=== PATIENT | female | born 1980 | race Caucasian/White ===

== ENCOUNTER 2018-03-12 21:48 | Inpatient (IN) | payer SELFPAY, MEDICAID | END 2018-03-16 15:52 | disposition home or self-care (01) | LOC: 4TH 03-13 00:36 → ER 21:48 ==

== ENCOUNTER 2018-04-22 20:43 | Outpatient (CLI) | payer OTHER | END 2018-04-23 06:35 | disposition home or self-care (01) | LOC: SLEEP 20:43 | PROVIDERS: ATTEND Nurse Practitioner Family | DX: G47.10 Hypersomnia, unspecified (principal); I50.9 Heart failure, unspecified; R94.30 Abnormal result of cardiovascular function study, unspecified; Z72.0 Tobacco use | CPT/HCPCS: 95810 ==

== ENCOUNTER → 2018-06-25 | Outpatient (CLI) | payer MEDICAID, OTHER ==
[~2018-06-25] MED LIST: ALBU17AE3 IH; ALBU8.5H2; ASP325T PO; CARV12.53 PO; CEFD300C3 PO; DIGO125T PO; DIGOXIN; ENAL5TAB PO; FLUO20CA25 PO; FRS325T PO; FRSM40T PO; FURO20TA4 PO; LASIX; LEVO500T69 PO; LEVO500T80 PO; MAGN400T6 PO; MAGNESIUM; METH4TAB PO; METO-387 PO; MULT-298 PO; NFPRILOC40 PO; NIAC250T17 PO; OMEP20TA2 PO; POTA10CA43 PO; POTASSIUM; PRAV10TA PO; PRD20T PO; PROZAC; RT-FLOV110 INH; SACU1TAB PO; SPIR25TA3 PO
== END ==
LOC: CARD 09:00
PROVIDERS: ATTEND Internal Medicine Cardiovascular Disease
DX: I42.8 Other cardiomyopathies (principal); I08.1 Rheumatic disorders of both mitral and tricuspid valves
CPT/HCPCS: 93306

== ENCOUNTER 2019-04-20 13:09 | Emergency (ER) | payer SELFPAY ==
[~2019-04-20] VITALS: Ht 165 cm; Wt 133.8 kg
[~2019-04-20 13:09] MED LIST changes: -METO-387 PO; +MTP25TSR PO; -SACU1TAB PO; +SACU1TAB2 PO
--- NOTE | 2019-04-20 13:46 | ED EENT ---
History of Present Illness General Chief Complaint: Dental Problems/Pain Stated Complaint: DENTAL PAIN Nursing Triage Note: Patient ambulatory to ER FT3 with complaint of dental pain x 3 days. Patient states she broke an upper left tooth 3 days ago and now has swelling and pain to the left upper jaw. Patient has been taking orajel and ibuprofen with minimal relief. Source: patient Exam Limitations: no limitations History of Present Illness Date Seen by Provider: Apr 20, 2019 Time Seen by Provider: 13:46 Initial Comments 38-year-old female patient presents with complaints of left upper dental pain 3 days. Patient reports chipping the tooth 3 days ago. She denies improvement with Orajel and ibuprofen at home. Timing/Duration: gradual Location: facial, dental Prearrival Treatment: over the counter meds Modifying Factors: Improves With Other (worse with palpation and chewing.) Allergies and Home Medications Allergies Coded Allergies: paroxetine (Unverified Allergy, Unknown, 07/07/13) Uncoded Allergies: ANESTHETIC (Allergy, Unknown, 07/07/13) Home Medications Cefdinir 300 Mg Capsule, 300 MG PO BID Prescribed by: WHIT CEDENO on 03/14/18 1654 Metoprolol Succinate 25 Mg Tab.er.24h, 25 MG PO DAILY Prescribed by: WHIT CEDENO on 03/14/18 165 Penicillin V Potassium 500 Mg Tablet, 500 MG PO QID Prescribed by: NIVIA MICHELLE on 04/20/19 1412 Sacubitril/Valsartan 1 Each Tablet, 1 TAB PO BID Prescribed by: WHIT CEDENO on 03/14/18 165 Tramadol HCl 50 Mg Tablet, 50 MG PO Q6H PRN for PAIN Prescribed by: NIVIA MICHELLE on 04/20/19 1412 Patient Home Medication List Home Medication List Reviewed: Yes Review of Systems Review of Systems Constitutional: No chills, No diaphoresis, No fever, No malaise Eyes: No Symptoms Reported Ears: No Symptoms Reported Nose: no symptoms reported Mouth: see HPI, pain, swelling (left upper); denies bloody discharge, denies clear discharge, denies purulent discharge, denies serosanguinous discharge Throat: denies pain, denies swelling, denies neck stiffness, denies hoarse, denies aphonia, denies muffled, denies painful swallowing, denies difficulty with fluids Respiratory: no symptoms reported Cardiovascular: no symptoms reported Gastrointestinal: no symptoms reported Skin: no symptoms reported Neurological: No Symptoms Reported All Other Systems Reviewed Negative Unless Noted: Yes (Negative excepted noted.) Past Puoyypj-Fvtvfo-Tgscvx Hx Past Med/Social Hx: Reviewed Nursing Past Med/Soc Hx Patient Social History Type Used: Cigarettes 2nd Hand Smoke Exposure: Yes Recent Foreign Travel: No Contact w/Someone Who Travel: No Recent Infectious Disease Expo: No Recent Hopitalizations: No Immunizations Up To Date Date of Pneumonia Vaccine: Dec 03, 2010 Date of Influenza Vaccine: Mar 13, 2018 Seasonal Allergies Seasonal Allergies: No Past Medical History Surgeries: Yes Adenoidectomy, Tonsillectomy, Tubal Ligation Respiratory: Yes (VERY DIFFICULT TO INTUBATE) Asthma Cardiac: Yes Neurological: No 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 6.0oz. 113.645864fo; 49.00 BMI Method:Estimated General Appearance: WD/WN, no apparent distress, obese Eyes: bilateral eye normal inspection, bilateral eye PERRL, bilateral eye EOMI Ears: bilateral ear auricle normal, bilateral ear canal normal, bilateral ear TM normal Nose: normal inspection Mouth/Throat: pharynx normal, dental tenderness (left upper dental tenderness); No excessive drooling; maxillary swelling (left); No pharynx swelling, No trismus, No uvula swelling, No voice changes Neck: non-tender, full range of motion, supple, normal inspection Cardiovascular: normal peripheral pulses, regular rate, rhythm, no edema, no murmur Respiratory: lungs clear, normal breath sounds, no respiratory distress, no accessory muscle use Neurologic/Psychiatric: alert, normal mood/affect, oriented x 3 Skin: normal color, warm/dry Progress/Results/Core Measures Results/Orders My Orders Orders - NIVIA MICHELLE Lidocaine 2% Viscous 15 Ml (Xylocaine Vi (04/20/19 14:15) Benzocaine Extension Tube (Hurricaine Ex (04/20/19 14:15) Vital Signs/I&O 04/20/19 13:26 Temp 37.1 Pulse 76 Resp 18 B/P (MAP) 136/87 (103) Pulse Ox 100 O2 Delivery Room Air Blood Pressure Mean: 103 Departure Impression Primary Impression: Infected dental caries Disposition: HOME, SELF-CARE Condition: Improved Departure-Patient Inst. Decision time for Depature: 14:10 Referrals: [facility] (PCP/Family) Primary Care Physician Patient Instructions: Dental Pain, Tooth Abscess (DC) Add. Discharge Instructions: All discharge instructions reviewed with patient and/or family. Voiced understanding. Medications as instructed. Tylenol Extra Strength opfu-ldx-dtyzflr as directed for pain. Ibuprofen 800 mg by mouth every 8 hours as needed for pain. Soft diet as tolerated. Stay well hydrated. Ice packs or warm packs as needed for pain. Follow-up with the dentist of your choice for recheck and dental repair as an outpatient. Call their office Sunday for appointment time. Return to the emergency department for worsened pain, fever, difficulty swallowing, difficulty breathing, or any other concerns. Lidocaine with benzocaine gauze pads- Place 1 pad between the gums and cheek of the affected tooth for 5-10 minutes. Then remove the pad. You may repeat this 4 times a day as needed for pain. DO NOT lie down with the pad in her mouth, swallow the pad, or fall asleep with the pad in your mouth due to risk of choking, bowel obstruction, and . Scripts Tramadol HCl (Tramadol HCl) 50 Mg Tablet 50 MG PO Q6H PRN for PAIN, #14 TAB 0 Refills Prov: NIVIA MICHELLE 04/20/19 Penicillin V Potassium (Penicillin V Potassium) 500 Mg Tablet 500 MG PO QID, #42 TAB 0 Refills Prov: NIVIA MICHELLE 04/20/19 NIVIA MICHELLE Apr 20, 2019 13:46
[2019-04-20] MEDS ORDERED: PENI500T PO (14:12)
[2019-04-20] MEDS ORDERED: TRM50T PO (14:12)
[2019-04-20] MEDS ORDERED: LIDOCAINE 2% VISCOUS 15 ML UDC PO ONE (14:15)
[2019-04-20] MEDS ORDERED: HURRICAINE EXT TUBE (BENZOCAINE) XX ONE (14:15)
[2019-04-20 14:37] VITALS: BP 136/87
== END 2019-04-20 14:38 | disposition home or self-care (01) ==
LOC: ER 13:09 → EDUNIT# 13:09 → ER 14:38
DX: K02.9 Dental caries, unspecified (principal); K04.7 Periapical abscess without sinus; Z88.8 Allergy status to other drugs, medicaments and biological substances; Z88.4 Allergy status to anesthetic agent
CPT/HCPCS: 99282

== ENCOUNTER 2019-10-21 20:43 | Emergency (ER) | payer SELFPAY ==
[~2019-10-21] VITALS: Ht 165.1 cm; Wt 124.7 kg
[~2019-10-21 20:43] MED LIST changes: +PENI500T PO; +TRM50T PO
--- NOTE | 2019-10-21 21:21 | ED EENT ---
History of Present Illness General Chief Complaint: Dental Problems/Pain Stated Complaint: DENTAL PAIN Nursing Triage Note: PT AMBULATE TO TRIAGE WITH C/O TOOTH PAIN X2 DAYS. PT STATES SHE HAS A TOOTH THAT WAS CHIPPED AND NOT SHE THINKS IT IS INFECTED. PT STATES SHE HAS NOT SEEN A DENTIST FOR THIS C/O AND WAS GOING TO CALL TOMORROW FOR A APPOINTMENT. History of Present Illness Date Seen by Provider: Oct 21, 2019 Time Seen by Provider: 21:15 Initial Comments 39-year-old female presents for left lower molar pain that is been present for approximately 2 days ago. She reports that it was to be pulled several years ago when she's never followed up with a dentist. She has tried ibuprofen with minimal improvement in her symptoms. Timing/Duration: other (2 days) Location: dental Prearrival Treatment: no prearrival treatment Associated Symptoms: denies symptoms Allergies and Home Medications Allergies Coded Allergies: paroxetine (Unverified Allergy, Unknown, 07/07/13) Uncoded Allergies: ANESTHETIC (Allergy, Unknown, 07/07/13) Home Medications Amoxicillin 500 Mg Capsule, 500 MG PO TID Prescribed by: RYANNE HERNANDEZ on 10/21/192122 Cefdinir 300 Mg Capsule, 300 MG PO BID Prescribed by: WHIT CEDENO on 03/14/18 165 Metoprolol Succinate 25 Mg Tab.er.24h, 25 MG PO DAILY Prescribed by: WHIT CEDENO on 03/14/18 165 Penicillin V Potassium 500 Mg Tablet, 500 MG PO QID Prescribed by: NIVIA MICHELLE on 04/20/19 1412 Sacubitril/Valsartan 1 Each Tablet, 1 TAB PO BID Prescribed by: WHIT CEDENO on 03/14/18 1654 Tramadol HCl 50 Mg Tablet, 50 MG PO Q6H PRN for PAIN Prescribed by: NIVIA MICHELLE on 04/20/19 1412 Patient Home Medication List Home Medication List Reviewed: Yes Review of Systems Review of Systems Constitutional: no symptoms reported, see HPI Mouth: see HPI; denies loose teeth; pain All Other Systems Reviewed Negative Unless Noted: Yes Past Tnccwku-Jnldas-Hvhcet Hx Past Med/Social Hx: Reviewed Nursing Past Med/Soc Hx Patient Social History Alcohol Use: Occasionally Uses Recreational Drug Use: Yes Drug of Choice: POT Smoking Status: Current Everyday Smoker Type Used: Cigarettes 2nd Hand Smoke Exposure: Yes Recent Foreign Travel: No Contact w/Someone Who Travel: No Recent Infectious Disease Expo: No Recent Hopitalizations: No Physical Abuse: No Sexual Abuse: No Mistreated: No Fear: No Immunizations Up To Date PED Vaccines UTD: Yes Date of Pneumonia Vaccine: Dec 03, 2010 Date of Influenza Vaccine: Mar 13, 2018 Seasonal Allergies Seasonal Allergies: No Past Medical History Surgeries: Yes Adenoidectomy, Tonsillectomy, Tubal Ligation Respiratory: Yes (VERY DIFFICULT TO INTUBATE) Asthma Cardiac: Yes Neurological: No Reproductive Disorders: 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 6.0oz. 113.843464ed; 45.00 BMI Method:Estimated General Appearance: WD/WN, no apparent distress Nose: normal inspection; No active bleeding, No discharge Mouth/Throat: pharynx normal, maxillary swelling; No pharynx tenderness, No tongue swollen; other (dental tenderness and erythema left lower molar no purulent drainage) Neck: lymphadenopathy (L) Cardiovascular: normal peripheral pulses, regular rate, rhythm Respiratory: chest non-tender, lungs clear, normal breath sounds Gastrointestinal: normal bowel sounds, non tender, soft Neurologic/Psychiatric: alert, normal mood/affect, oriented x 3 Skin: normal color, warm/dry Progress/Results/Core Measures Results/Orders My Orders Orders - RYANNE HERNANDEZ Amoxicillin Capsule (Polymox Capsule) (10/21/19 21:29) Tramadol Tablet (Ultram Tablet) (10/21/19 21:30) Vital Signs/I&O 10/21/19 21:02 Temp 36.7 Pulse 83 Resp 18 B/P (MAP) 127/88 (101) O2 Delivery Room Air Blood Pressure Mean: 101 Departure Impression Primary Impression: Dental abscess Disposition: 01 HOME, SELF-CARE Condition: Improved Departure-Patient Inst. Decision time for Depature: 21:20 Referrals: [facility] (PCP/Family) Primary Care Physician Patient Instructions: Dental Pain (DC) Add. Discharge Instructions: Take antibiotics as directed. Alternate between Tylenol 650 mg and ibuprofen 600 mg every 4 hours for pain. Use Orajel to area of tenderness. Apply warm moist compresses to your left cheek. Call Andrew for appointment tomorrow. Return to the emergency department for new, urgent health care needs All discharge instructions reviewed with patient and/or family. Voiced understan tonia. Scripts Amoxicillin (Amoxicillin) 500 Mg Capsule 500 MG PO TID, #21 CAP 0 Refills Prov: RYANNE HERNANDEZ 10/21/19 RYANNE HERNANDEZ Oct 21, 2019 21:21
[2019-10-21] MEDS ORDERED: AMOX500C2 PO (21:23)
[2019-10-21] MEDS ORDERED: AMOXICILLIN 500 MG (POLYMOX) CAP PO STA (21:29)
[2019-10-21 21:37] VITALS: BP 127/88
--- OUTSIDE RECORDS SUMMARY | 2019-10-21 21:40 | XMS REPORT ---
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 Name Role Phone MING VILLA Unavailable PROBLEMS Type Condition ICD9-CM Code [id number] Code Onset Dates Condition S tatus SNOMED Code Notes Problem Seasonal allergic rhinitis due to pollen J30.1 Active 66696406 Problem Heart failure, unspecified H F chronicity, unspecified heart failure type I50.9 Active 27379643 Problem Asthma J45.909 Active 407765968 ASTHMA UNSPECI FIED ALLERGIES Allergen (clinical drug ingredient) Drug/Non Drug Allergy do cumented on EMR Reaction Allergy Type Onset Date Status paroxetine Paxil([facility] Code:[address]-30) rash Drug Allergy Active ENCOUNTERS from 1982 to 2019-10-20 Encounter Location Date Provider Diagnosis [facility] [address] [id number] [place] [address] May, MING VILLA IMMUNIZATIONS Vaccine Route Administration Date Status PRIVATE PPSV23 (PNEUMOVAX) Unknown Jan 06, 2013 Admin istered influenza IIV3 (history) Unknown Jan 23, 2011 Pending DEPO MEDROL 40 MG/ML IM Intramuscular Jan 31, 2016 Administer ed influenza IIV3 (history) Unknown Jan 06, 2013 Adminis tered influenza IIV3 (history) Unknown Apr 10, 2012 Pending Influenza, seasonal, injectable (split), for 3 yrs and up Unknow n Nov 23, 2009 Administered SOCIAL HISTORY Tobacco Use: Social History Observation Description Date Details (start date - stop date) Current some day smoker Sex Assigned At : Social History Observation Description Sex Assigned At Unknown Alcohol Screen (Audit-C) Question Answer Notes Did you have a drink containing alcohol in the past year? Ye s Points 1 Interpretation Negative How often did you have 6 or more drinks on one occasio n in the past year? Never (0 points) How many drinks did you have on a typica l day when you were drinking in the past year? 1 or 2 (0 points) How often did you have a drink containing alcohol in t he past year? Monthly or less (1 point) Drug and Alcohol (Do not use) Question Answer Notes Total Score: 2 Interpretation: Low level Tobacco Use/Smoking Question Answer Notes Are you a current some day smoker REASON FOR REFERRAL No Information VITAL SIGNS No information MEDICATIONS Medication SIG (Take, Route, Frequency, Duration) Start Date En d Date Status Entresto 24-26 MG 1 tablet Orally Twice a day for 30 day(s) Mar, Active Metoprolol Succinate ER 25 MG 1 tablet Orally Once a day for 30 day(s) Apr, Active Amoxicillin-Pot Clavulanate 875-125 MG 1 tablet Orally every 12 hrs for 10 day(s) July, Active PROCEDURES No Information RESULTS No Results REASON FOR VISIT No Information MEDICAL (GENERAL) HISTORY Type Description Date Medical History asthma-dx at age 11-12 Medical History hypertension-hx of pre-eclam psia with second , was induced at 35 weeks Medical History cardiomyopathy- (non-ischemic) (Erin) Medical History depression Medical History CHF Surgical History tonsillectomy Surgical History tubal 2014 Surgical History tonsillectomy Surgical History tubal gvjhapdn-[id number]-yl dev eloped respiratory issues and heart failure following the surgery 01/2011 Surgical History echo-07/2009, 10/21/09, 04/15, 10/04/10 Hospitalization History PPD #4 for non-ischemic card iomyopathy, respiratory distress due to pulmonary edema, ARF 07/2009 Hospitalization History surgeries Goals Section No Information Health Concerns No Information MEDICAL EQUIPMENT No Information MENTAL STATUS No Information FUNCTIONAL STATUS No Information ASSESSMENTS No Information PLAN OF TREATMENT Medication Medication Name Sig Start Date Stop Date Amoxicillin-Pot Clavulanate 875-125 MG 1 tablet Orally every 12 hrs for 10 day(s) July,
--- OUTSIDE RECORDS SUMMARY | 2019-10-21 21:40 | XMS REPORT ---
Author Author Renate Marcano Organization 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 [address] [facility] [id number] [address] [place] [id number] Sep, [facility] [address] [facility] [id number] [address] [place] [phone] July, Dental abscess K04.7 [facility] [address] [facility] [id number] [address] [place] [address] Jun, Acute left-sided low back pa in without sciatica M54.5 [facility] [address] [facility] [id number] [address] [place] [address] May, Sore throat J02.9 [facility] [address] [facility] [id number] [address] [place] [address] Nov, [facility] [address] [facility] [id number] [address] [place] [phone] Aug, [facility] [address] [facility] [id number] [address] [place] [address] July, [facility] [address] [facility] [id number] [address] [place] [address] July, [facility] [address] [place] [id number] [address] [place] [address] May, [facility] [address] [address] May, Morbid obesity E66.01 and Lo calized edema R60.0 [facility] [address] [address] Apr, [facility] [address] [address] Mar, [facility] [address] [address] Mar, Heart failure, unspecified H F chronicity, unspecified heart failure type I50.9 [facility] [address] [address] Apr, Seasonal allergic rhinitis d ue to pollen J30.1 and Asthma J45.909 [facility] [address] [address] Jan, Seasonal allergic rhinitis d ue to pollen J30.1 [facility] [address] [address] Dec, Acute upper respiratory infe ction, unspecified J06.9 [facility] [address] [address] Dec, [facility] [address] [address] July, Environmental allergies Z91. 09 [place] [address] [address] Oct, Abscess 682.9 [facility] [address] [address] Oct, Mood disorder 296.90 [facility] [address] [address] Sep, Screen for STD (sexually tra nsmitted disease) V74.5 [facility] [address] [id number] [address] [place] [id number] 15 Sep, 2014 [facility] [address] [id number] [address] [place] [id number] 13 Sep, [address] [facility] [address] [id number] [address] [place] [phone] 13 Sep, 2014 Major depressive disorder, r ecurrent episode, severe 296.33 and No condition on [place] II V71.09 [facility] [address] [id number] [address] [place] [phone] 10 Sep, 2014 [facility] [address] [id number] [address] [place] [id number] 14 Jun, 2014 [facility] [address] [id number] [address] [place] [phone] Jun, [facility] [address] [id number] [address] [place] [phone] 16 Nov, 2013 [facility] [address] [id number] [address] [place] [phone] 16 Nov, 2013 [facility] [address] [id number] [address] [place] [phone] 15 Nov, 2013 [facility] [address] [id number] [address] [place] [address] 15 Nov, 2013 [facility] [address] [id number] [address] [place] [phone] 12 Nov, 2013 [facility] [address] [id number] [address] [place] [phone] Nov, [facility] [address] [id number] [address] [place] [phone] Oct, [facility] [address] [id number] [address] [place] [phone] Oct, [facility] [address] [id number] [facility] [place] [address] Aug, [facility] [address] [id number] [address] [place] [address], [place] [address] Aug, [facility] [address] [id number] [address] [place] [address], [place] [address] Aug, [facility] [address] [id number] [address] [place] [address], [place] [address] Aug, [facility] [address] [id number] [address] [place] [address], [place] [address] July, [facility] [address] [id number] [address] [place] [address], [place] [address] July, [facility] [address] [id number] [address] [place] [address], [place] [address] July, [facility] [address] [id number] [address] [place] [address], [place] [address] July, [facility] [address] [id number] [address] [place] [address], [place] [address] Jun, [facility] [address] [id number] [address] [place] [address], [place] [address] Jun, [facility] [address] [id number] [address] [place] [address], [place] [address] May, [facility] [address] [id number] [address] [place] [address], [place] [address] May, [facility] [address] [id number] [address] [place] [address], [place] [address] May, [facility] [address] [id number] [address] [place] [address], [place] [address] May, [facility] [address] [id number] [address] [place] [address], [place] [address] May, [facility] [address] [id number] [address] [address] Mar, [facility] [address] [id number] [address] [place] [address], [place] [address] Mar, [facility] [address] [id number] [address] [place] [address], [place] [address] Mar, [facility] [address] [id number] [address] [place] [address], [place] [address] Mar, [facility] [address] [id number] [address] [place] [address], [place] [address] Mar, [facility] [address] [id number] [address] [place] [address], [place] [address] Mar, [facility] [address] [id number] [address] [place] [address], [place] [address] Mar, [facility] [address] [id number] [address] [place] [address], [place] [address] Feb, [facility] [address] [id number] [address] [place] [address], [place] [address] Feb, [facility] [address] [id number] [address] [place] [address], [place] [address] Jan, [facility] [address] [id number] [address] [place] [address], [place] [address] Jan, [facility] [address] [id number] [address] [place] [address], [place] [address] Jan, [facility] [address] [id number] [address] [place] [phone] Jan, [facility] [address] [id number] [address] [place] [address], [place] [address] Nov, [facility] [address] [id number] [address] [place] [address], [place] [address] Nov, [facility] [address] [id number] [address] [place] [address], [place] [address] Sep, [facility] [address] [id number] [facility] [place] [address] Aug, [facility] [address] [id number] [address] [place] [address], [place] [address] Aug, [facility] [address] [id number] [address] [place] [address], [place] [address] Aug, [facility] [address] [id number] [address] [place] [address], [place] [address] July, [facility] [address] [id number] [address] [place] [address], [place] [address] July, [facility] [address] [id number] [address] [place] [address], [place] [address] Jun, [facility] [address] [id number] [address] [place] [address], [place] [address] May, [facility] [address] [id number] [address] [place] [address], [place] [address] 18 May, 2012 [facility] [address] [id number] [address] [place] [address], [place] [address] 14 May, 2012 [facility] [address] [id number] [address] [place] [address], [place] [address] May, [facility] [address] [id number] [address] [place] [address], [place] [address] May, [facility] [address] [id number] [address] [place] [address], [place] [address] 11 May, 2012 [facility] [address] [id number] [address] [place] [address], [place] [address] 06 May, 2012 [facility] [address] [id number] [address] [place] [address], [place] [address] 06 May, 2012 [facility] [address] [id number] [address] [place] [address], [place] [address] 06 May, 2012 [facility] [address] [id number] [address] [place] [address], [place] [address] May, [facility] [address] [id number] [address] [place] [address], [place] [address] May, [facility] [address] [id number] [address] [place] [address], [place] [address] Apr, [facility] [address] [id number] [address] [place] [address], [place] [address] Mar, [facility] [address] [id number] [address] [place] [address], [place] [address] Mar, [facility] [address] [id number] [address] [place] [address], [place] [address] Jan, [facility] [address] [id number] [address] [place] [address], [place] [address] Jan, [facility] [place] [address] [id number] [place] [id number] Oct, [facility] [address] [id number] [address] [place] [address], [place] [address] Sep, [facility] [address] [id number] [address] [place] [address], [place] [address] Sep, [facility] [address] [id number] [address] [place] [address], [place] [address] Aug, [facility] [address] [id number] [address] [place] [address], [place] [address] Aug, [facility] [address] [id number] [address] [place] [address], [place] [address] Aug, [facility] [address] [id number] [address] [place] [address], [place] [address] Aug, [facility] [address] [id number] [address] [place] [address], [place] [address] Aug, [facility] [address] [id number] [address] [place] [address], [place] [address] Jun, [facility] [address] [id number] [address] [place] [address], [place] [address] May, [facility] [address] [id number] [address] [place] [address], [place] [address] Mar, [facility] [address] [id number] [address] [place] [address], [place] [address] Mar, [facility] [address] [id number] [address] [place] [address], [place] [address] Feb, [facility] [address] [id number] [address] [place] [address], [place] [address] Jan, [facility] [address] [id number] [address] [place] [address], [place] [address] Jan, [facility] [address] [id number] [address] [place] [address], [place] [address] Jan, [facility] [address] [id number] [address] [place] [address], [place] [address] Jan, [facility] [address] [id number] [address] [place] [address], [place] [address] Dec, [facility] [address] [id number] [address] [place] [address], [place] [address] Dec, [facility] [address] [id number] [address] [place] [address], [place] [address] Dec, [facility] [address] [id number] [address] [place] [address], [place] [address] Dec, [facility] [address] [id number] [address] [place] [address], [place] [address] Feb, [facility] [address] [id number] [address] [place] [address], [place] [address] Jan, [facility] [address] [id number] [address] [place] [address], [place] [address] Jan, [facility] [address] [id number] [address] [place] [address], [place] [address] July, [facility] [address] [id number] [address] [place] [address] 17 Jul, 2009 [facility] [address] [id number] [address] [place] [address] July, [facility] [address] [id number] [address] [place] [address] July, [facility] [address] [facility] [id number] [address] [place] [address] July, [facility] [address] [id number] [address] [place] [id number] Feb, [facility] [address] [facility] [id number] [address] [place] [address] Feb, [facility] [address] [facility] [id number] [address] [place] [address] Jan, [facility] [address] [facility] [id number] [address] [place] [address] Jan, IMMUNIZATIONS No Known Immunizations SOCIAL HISTORY Never Assessed REASON FOR VISIT PLAN OF CARE VITAL SIGNS MEDICATIONS Unknown Medications RESULTS No Results PROCEDURES No Known procedures INSTRUCTIONS MEDICATIONS ADMINISTERED No Known Medications MEDICAL (GENERAL) HISTORY Type Description Date Medical History asthma-dx at age 11-12 Medical History hypertension-hx of pre-eclam psia with second , was induced at 35 weeks Medical History cardiomyopathy- (non-ischemic) (Erin) Medical History depression Medical History CHF Surgical History tonsillectomy Surgical History tubal 2014 Surgical History tonsillectomy Surgical History tubal rqprbnjh-Ujvzub-rv dev eloped respiratory issues and heart failure following the surgery 01/2011 Surgical History echo-07/2009, 10/21/09, 04/15, 10/04/10 Hospitalization History PPD #4 for non-ischemic card iomyopathy, respiratory distress due to pulmonary edema, ARF 07/2009 Hospitalization History surgeries
--- OUTSIDE RECORDS SUMMARY | 2019-10-21 21:40 | XMS REPORT ---
Author Author Renate VILLA [facility] Address [address] [place] [address] Care Team Providers Care Continuous Improvement Black Belt Name Role Phone ALLEN MING Unavailable PROBLEMS Type Condition ICD9-CM Code [id number] Code Onset Dates Condition S tatus SNOMED Code Problem Seasonal allergic rhinitis due to pollen J30.1 Active 76689897 Problem Heart failure, unspecified H F chronicity, unspecified heart failure type I50.9 Active 66381212 Problem Asthma J45.909 Active 820408439 ALLERGIES No Information ENCOUNTERS Encounter Location Date Diagnosis [facility] [address] [facility] [id number] [address] [place] [phone] Sep, [facility] [address] [facility] [id number] [address] [place] [phone] July, Dental abscess K04.7 [facility] [address] [facility] [id number] [address] [place] [phone] Jun, Acute left-sided low back pa in without sciatica M54.5 [facility] [address] [facility] [id number] [address] [place] [phone] May, Sore throat J02.9 [facility] [address] [id number] [address] [place] [phone] Nov, [facility] [address] [id number] [address] [place] [phone] Aug, [facility] [address] [facility] [id number] [address] [place] [phone] July, [facility] [address] [facility] [id number] [address] [place] [phone] July, [facility] [address] [address] May, [facility] [address] [address] May, Morbid obesity E66.01 and Lo calized edema R60.0 [facility] [address] [id number] Apr, [facility] [address] [address] Mar, [facility] [address] [address] Mar, Heart failure, unspecified H F chronicity, unspecified heart failure type I50.9 [facility] [address] [address] Apr, Seasonal allergic rhinitis d ue to pollen J30.1 and Asthma J45.909 [facility] [address] [address] Jan, Seasonal allergic rhinitis d ue to pollen J30.1 [facility] [address] [address] Dec, Acute upper respiratory infe ction, unspecified J06.9 [facility] [address] [address] Dec, [facility] [address] [address] July, Environmental allergies Z91. 09 [place] [address] [address] Oct, Abscess 682.9 [facility] [address] [address] Oct, Mood disorder 296.90 [facility] [address] [address] Sep, Screen for STD (sexually tra nsmitted disease) V74.5 [facility] [address] [id number] [address] [place] [id number] 15 Sep, 2014 [facility] [place] [address] [id number] [address] [place] [id number] 13 Sep, 2014 Depression 311 [facility] [address] [id number] [address] [place] [phone] Sep, Major depressive disorder, r ecurrent episode, severe 296.33 and No condition on [place] II V71.09 [facility] [address] [id number] [address] [place] [id number] 10 Sep, 2014 [facility] [address] [id number] [address] [place] [id number] 14 Jun, 2014 [facility] [address] [id number] [address] [place] [phone] Jun, [facility] [address] [id number] [address] [place] [phone] 16 Nov, 2013 [facility] [address] [id number] [address] [place] [id number] 16 Nov, 2013 [facility] [address] [id number] [address] [place] [phone] 15 Nov, 2013 [facility] [address] [id number] [address] [place] [phone] 15 Nov, 2013 [facility] [place] [address] [id number] [address] [place] [phone] Nov, [facility] [place] [address] [id number] [address] [place] [phone] Nov, [facility] [place] [address] [id number] [address] [place] [phone] Oct, [facility] [address] [facility] [id number] [address] [place] [phone] Oct, [facility] [address] [id number] [address] [address] Aug, [facility] [address] [id number] [place] [address] Aug, [facility] [address] [id number] [place] [address] Aug, [facility] [address] [id number] [address] [place] [address], [place] [address] Aug, [facility] [address] [id number] [place] [address] July, [facility] [address] [id number] [address] [place] [address], [place] [address] July, [facility] [address] [id number] [address] [place] [address], [place] [address] July, [facility] [address] [id number] [address] [place] [address], [place] [address] July, [facility] [address] [id number] [address] [place] [address], [place] [address] Jun, [facility] [address] [id number] [address] [place] [address], [place] [address] Jun, [facility] [address] [id number] [address] [place] [address], [place] [address] May, [facility] [address] [id number] [address] [place] [address], [place] [address] May, [facility] [address] [id number] [address] [place] [address], [place] [address] May, [facility] [address] [id number] [address] [place] [address], [place] [address] May, [facility] [address] [id number] [address] [place] [address], [place] [address] May, [facility] [address] [id number] [address] [place] [address], [place] [address] Mar, [facility] [address] [id number] [address] [place] [address], [place] [address] Mar, [facility] [address] [id number] [address] [place] [address], [place] [address] Mar, [facility] [address] [id number] [address] [place] [address], [place] [address] Mar, [facility] [address] [id number] [address] [place] [address], [place] [address] Mar, [facility] [address] [id number] [address] [place] [address], [place] [address] Mar, [facility] [address] [id number] [address] [place] [address], [place] [address] Mar, [facility] [address] [id number] [address] [place] [address], [place] [address] Feb, [facility] [address] [id number] [address] [place] [address], [place] [address] Feb, [facility] [address] [id number] [address] [place] [address], [place] [address] Jan, [facility] [address] [id number] [address] [place] [address], [place] [address] Jan, [facility] [address] [id number] [address] [place] [address], [place] [address] Jan, [facility] [address] [id number] [address] [place] [phone] Jan, [facility] [address] [id number] [address] [place] [address], [place] [address] Nov, [facility] [address] [id number] [address] [place] [address], [place] [address] Nov, [facility] [address] [id number] [address] [place] [address], [place] [address] Sep, [facility] [address] [id number] [address] [place] [address], [place] [address] 12 Aug, 2012 [facility] [address] [id number] [address] [place] [address], [place] [address] 05 Aug, 2012 [facility] [address] [id number] [address] [place] [address], [place] [address] Aug, [facility] [address] [id number] [address] [place] [address], [place] [address] July, [facility] [address] [id number] [address] [place] [address], [place] [address] July, [facility] [address] [id number] [address] [place] [address], [place] [address] Jun, [facility] [address] [id number] [address] [place] [address], [place] [address] May, [facility] [address] [id number] [address] [place] [address], [place] [address] 18 May, 2012 [facility] [address] [id number] [address] [place] [address], [place] [address] 14 May, 2012 [facility] [address] [id number] [address] [place] [address], [place] [address] 13 May, 2012 [facility] [address] [id number] [address] [place] [address], [place] [address] May, [facility] [address] [id number] [address] [place] [address], [place] [address] 11 May, 2012 [facility] [address] [id number] [address] [place] [address], [place] [address] 06 May, 2012 [facility] [address] [id number] [address] [place] [address], [place] [address] 06 May, 2012 [facility] [address] [id number] [address] [place] [address], [place] [address] 06 May, 2012 [facility] [address] [id number] [address] [place] [address], [place] [address] 06 May, 2012 [facility] [address] [id number] [address] [place] [address], [place] [address] May, [facility] [address] [id number] [address] [place] [address], [place] [address] Apr, [facility] [address] [id number] [address] [place] [address], [place] [address] Mar, [facility] [address] [id number] [address] [place] [address], [place] [address] Mar, [facility] [address] [id number] [address] [place] [address], [place] [address] Jan, [facility] [address] [id number] [address] [place] [address], [place] [address] Jan, [facility] [address] [id number] [id number] Oct, [facility] [address] [id number] [address] [place] [address], [place] [address] Sep, [facility] [address] [id number] [address] [place] [address], [place] [address] Sep, [facility] [address] [id number] [address] [place] [address], [place] [address] Aug, [facility] [address] [id number] [address] [place] [address], [place] [address] Aug, [facility] [address] [id number] [address] [place] [address], [place] [address] Aug, [facility] [address] [id number] [address] [place] [address], [place] [address] Aug, [facility] [address] [id number] [address] [place] [address], [place] [address] Aug, [facility] [address] [id number] [address] [place] [address], [place] [address] Jun, [facility] [address] [id number] [address] [place] [address] [address] May, [facility] [address] [id number] [address] [place] [address], [place] [address] Mar, [facility] [address] [id number] [address] [place] [address], [place] [address] Mar, [facility] [address] [id number] [address] [place] [address], [place] [address] Feb, [facility] [address] [id number] [address] [place] [address], [place] [address] Jan, [facility] [address] [id number] [address] [place] [address], [place] [address] Jan, [facility] [address] [id number] [address] [place] [address], [place] [address] Jan, [facility] [address] [id number] [address] [place] [address], [place] [address] Jan, [facility] [address] [id number] [address] [place] [address], [place] [address] Dec, [facility] [address] [id number] [address] [place] [address], [place] [address] Dec, [facility] [address] [id number] [address] [place] [address], [place] [address] Dec, [facility] [address] [id number] [address] [place] [address], [place] [address] Dec, [facility] [address] [id number] [address] [place] [address] Feb, [facility] [address] [id number] [address] [place] [address], [place] [address] Jan, [facility] [address] [id number] [address] [place] [address], [place] [address] Jan, [facility] [address] [id number] [address] [place] [address], [place] [address] July, [facility] [address] [id number] [address] [place] [id number] 17 Jul, 2009 [facility] [address] [id number] [address] [place] [address] July, [facility] [address] [id number] [address] [place] [address] July, [facility] [address] [facility] [id number] [address] [place] [address] July, [facility] [address] [facility] [id number] [address] [place] [address] Feb, [facility] [address] [facility] [id number] [address] [place] [id number] Feb, [facility] [address] [facility] [id number] [address] [place] [address] Jan, [facility] [address] [facility] [id number] [address] [place] [address] Jan, IMMUNIZATIONS No Known Immunizations SOCIAL HISTORY [...] 2014 Surgical History tonsillectomy Surgical History tubal gucphlcq-Qbzqkz-mc dev eloped respiratory issues and heart failure following the surgery 01/2011 Surgical History echo-07/2009, 10/21/09, 04/15, 10/04/10 Hospitalization History PPD #4 for non-ischemic card iomyopathy, respiratory distress due to pulmonary edema, ARF 07/2009 Hospitalization History surgeries
--- OUTSIDE RECORDS SUMMARY | 2019-10-21 21:40 | XMS REPORT ---
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 Interventions No Information Medications No Information Payers No Information Plan of Treatment The data below is from unstructured sources Discharge Date 02/20/15 11:20am Disposition 01 HOME, SELF-CARE Condition at Discharge Improved Instructions/Education Provided Acut e Bronchitis (ED) Prescriptions See Medication Section Referrals [facility] - Primary Care Physician Additional Instructions/Education Al l discharge instructions reviewed with patient and/or family. Voiced understanding. Take medications as directed. Follow-up with your DrJurgen in a few days for recheck. Return for worse pain, fever, vomiting, weakness, breathing problems or other concerns as needed. You may take Tylenol, 1000 mg every 8 hours as needed for fever or pain. You may take ibuprofen, 800 mg every 8 hours as needed for fever or pain. Problems No Information Procedures The data below is from unstructured sourcesNo known history of procedures. Results The data below is from unstructured sourcesNo known relevant diagnostic tests, laboratory data and/or discharge summary. Social History No Information Vital Signs The data below is from unstructured sources Vital Response Date/Time Temperature (Fahrenheit) 97.5 degree s F (97.6 - 99.5) 02/20/2015 9:30am Temperature (Calculated Celsius) 36. 72954 degrees C (36.4 - 37.5) 02/20/2015 9:30am Pulse Rate (adult) 70 bpm (60 - 90) 02/20/2015 9:30am Respiratory Rate 16 bpm (12 - 24) 02/20/2015 9:30am O2 Sat by Pulse Oximetry 98 % (88 - 100) 02/20/2015 9:30am Blood Pressure 118/70 mm Hg 02/20/2015 9:30am Blood Pressure Mean 86 mm Hg 02/20/2015 9:30am Pain Pain Intensity 0 2014 9:30am Height (Feet) 5 feet 9:30am Height (Inches) 6 inches 02/20/2015 9:30am Height (Calculated Centimeters) 167. 152007 cm 02/20/2015 9:30am Weight (Pounds) 180 pounds 02/20/2015 9:30am Weight (Calculated Kilograms) 81.646 627 kilograms 02/20/2015 9:30am Calculated BMI 29.05 9:30am Functional Status The data below is from unstructured sourcesNo functional status results. Mental Status No Information Advance Directives Directive Response Recor ded Date/Time Advance Directives No 9:35am Health Care Power of Chief Wharfinger No 02/20/15 9:35am Organ Donor Yes 02/20/15 9:35am Resuscitation Status Full Code 02/20/15 9:35am Discharge Instructions No hospital discharge instructions. Additional Source Comments This clinical document has been generated using [employer] software that has been certified by the Office of the National Coordinator for Health Information Technology (ONC 15.99.04.3023.Diam.31.00.0.692878) and the National Committee for Adult Education Instructor (NCQA, as an eMeasure certified technology). FOR RECORDS PERTAINING TO PATIENTS WHO ARE OR HAVE BEEN ENROLLED IN A CHEMICAL D EPENDENCY/SUBSTANCE ABUSE PROGRAM, SOME INFORMATION MAY BE OMITTED. This clinica l summary was aggregated from multiple sources. Caution should be exercised in using it in the provision of clinical care. This summary normalizes information from multiple sources, and as a consequence, information in this document may ma terially change the coding, format and clinical context of patient data. In arun tion, data may be omitted in some cases. CLINICAL DECISIONS SHOULD BE BASED ON T HE PRIMARY CLINICAL RECORDS. [employer] provides no warranty or guara ntee of the accuracy or completeness of information in this document.The followi ng information is based on time limited clinical information
--- OUTSIDE RECORDS SUMMARY | 2019-10-21 21:40 | XMS REPORT ---
Author Author Renate VILLA [facility] Address [address] [place] [address] Care Team Providers Care Tomography Technologist Name Role Phone ALLEN MING Unavailable PROBLEMS Type Condition ICD9-CM Code [id number] Code Onset Dates Condition S tatus SNOMED Code Problem Seasonal allergic rhinitis due to pollen J30.1 Active 01668293 Problem Heart failure, unspecified H F chronicity, unspecified heart failure type I50.9 Active 81884129 Problem Asthma J45.909 Active [id number] ALLERGIES No Information ENCOUNTERS Encounter Location Date Diagnosis [facility] [address] [facility] [id number] [address] [place] [id number] Sep, [facility] [address] [facility] [id number] [address] [place] [phone] July, Dental abscess K04.7 [facility] [address] [facility] [id number] [address] [place] [address] Jun, Acute left-sided low back pa in without sciatica M54.5 [facility] [address] [facility] [id number] [address] [place] [id number] May, Sore throat J02.9 [facility] [address] [id number] [address] [place] [address] Nov, [facility] [address] [id number] [address] [place] [id number] Aug, [facility] [address] [id number] [address] [place] [phone] July, [facility] [address] [facility] [id number] [address] [place] [id number] July, [facility] [address] [address] May, [facility] [address] [address] May, Morbid obesity E66.01 and Lo calized edema R60.0 [facility] [address] [address] Apr, [facility] [address] [address] Mar, [facility] [address] [address] Mar, Heart failure, unspecified H F chronicity, unspecified heart failure type I50.9 [facility] [address] [address] Apr, Seasonal allergic rhinitis d ue to pollen J30.1 and Asthma J45.909 [facility] [address] [address] Jan, Seasonal allergic rhinitis d ue to pollen J30.1 [facility] [address] [address] Dec, Acute upper respiratory infe ction, unspecified J06.9 [facility] [address] [address] Dec, [facility] [address] [address] July, Environmental allergies Z91. 09 [place] [address] [address] Oct, Abscess 682.9 [facility] [address] [address] Oct, Mood disorder 296.90 [facility] [address] [address] Sep, Screen for STD (sexually tra nsmitted disease) V74.5 [facility] [address] [id number] [address] [place] [address] 15 Sep, 2014 [facility] [address] [id number] [address] [place] [id number] 13 Sep, 2014 Depression 311 [facility] [address] [id number] [address] [place] [address] Sep, Major depressive disorder, r ecurrent episode, severe 296.33 and No condition on Man II V71.09 [facility] [address] [id number] [address] [place] [address] 10 Sep, 2014 [facility] [address] [id number] [address] [place] [address] 14 Jun, 2014 [facility] [address] [id number] [address] [place] [address] Jun, [facility] [address] [id number] [address] [place] [id number] 16 Nov, 2013 [facility] [address] [id number] [address] [place] [id number] 16 Nov, 2013 [facility] [address] [id number] [address] [place] [phone] 15 Nov, 2013 [facility] [address] [id number] [address] [place] [id number] 15 Nov, 2013 [facility] [address] [id number] [address] [place] [address] Nov, [facility] [address] [id number] [address] [place] [address] Nov, [facility] [address] [id number] [address] [place] [phone] Oct, [facility] [address] [facility] [id number] [address] [place] [phone] Oct, [facility] [address] [id number] [facility] [place] [address] Aug, [facility] [address] [id number] [facility] [place] [address] Aug, [facility] [address] [id number] [facility] [place] [address] Aug, [facility] [address] [id number] [address] [place] [address], [place] [address] Aug, [facility] [address] [id number] [facility] [place] [address] July, [facility] [address] [id number] [address] [place] [address], [place] [address] July, [facility] [address] [id number] [address] [place] [address], [place] [address] July, [facility] [address] [id number] [address] [place] [address], [place] [address] July, [facility] [address] [id number] [address] [place] [address], [place] [address] Jun, [facility] [address] [id number] [address] [place] [address], [place] [address] Jun, [facility] [address] [id number] [address] [place] [address], [place] [address] May, [facility] [address] [id number] [address] [place] [address], [place] [address] May, [facility] [address] [id number] [address] [place] [address], [place] [address] May, [facility] [address] [id number] [address] [place] [address], [place] [address] May, [facility] [address] [id number] [address] [place] [address], [place] [address] May, [facility] [address] [id number] [address] [place] [address], [place] [address] Mar, [facility] [address] [id number] [address] [place] [address], [place] [address] Mar, [facility] [address] [id number] [address] [place] [address], [place] [address] Mar, [facility] [address] [id number] [address] [place] [address], [place] [address] Mar, [facility] [address] [id number] [address] [place] [address], [place] [address] Mar, [facility] [address] [id number] [address] [place] [address], [place] [address] Mar, [facility] [address] [id number] [address] [place] [address], [place] [address] Mar, [facility] [address] [id number] [address] [place] [address], [place] [address] Feb, [facility] [address] [id number] [address] [place] [address], [place] [address] Feb, [facility] [address] [id number] [address] [place] [address], [place] [address] Jan, [facility] [address] [id number] [address] [place] [address], [place] [address] Jan, [facility] [address] [id number] [address] [place] [address], [place] [address] Jan, [facility] [address] [id number] [address] [place] [address] Jan, [facility] [address] [id number] [address] [place] [address], [place] [address] Nov, [facility] [address] [id number] [address] [place] [address], [place] [address] Nov, [facility] [address] [id number] [address] [place] [address], [place] [address] Sep, [facility] [address] [id number] [address] [place] [address], [place] [address] 12 Aug, 2012 [facility] [address] [id number] [address] [place] [address], [place] [address] 05 Aug, 2012 [facility] [address] [id number] [address] [place] [address], [place] [address] Aug, [facility] [address] [id number] [address] [place] [address], [place] [address] July, [facility] [address] [id number] [address] [place] [address], [place] [address] July, [facility] [address] [id number] [address] [place] [address], [place] [address] Jun, [facility] [address] [id number] [address] [place] [address], [place] [address] May, [facility] [address] [id number] [address] [place] [address], [place] [address] 18 May, 2012 [facility] [address] [id number] [address] [place] [address], [place] [address] 14 May, 2012 [facility] [address] [id number] [address] [place] [address], [place] [address] 13 May, 2012 [facility] [address] [id number] [address] [place] [address], [place] [address] May, [facility] [address] [id number] [address] [place] [address], [place] [address] 11 May, 2012 [facility] [address] [id number] [address] [place] [address], [place] [address] 06 May, 2012 [facility] [address] [id number] [address] [place] [address], [place] [address] 06 May, 2012 [facility] [address] [id number] [address] [place] [address], [place] [address] 06 May, 2012 [facility] [address] [id number] [address] [place] [address], [place] [address] 06 May, 2012 [facility] [address] [id number] [address] [place] [address], [place] [address] May, [facility] [address] [id number] [address] [place] [address], [place] [address] Apr, [facility] [address] [id number] [address] [place] [address], [place] [address] Mar, [facility] [address] [id number] [address] [place] [address], [place] [address] Mar, [facility] [address] [id number] [address] [place] [address], [place] [address] Jan, [facility] [address] [id number] [address] [place] [address], [place] [address] Jan, [facility] [address] [id number] [id number] Oct, [facility] [address] [id number] [address] [place] [address], [place] [address] Sep, [facility] [address] [id number] [address] [place] [address], [place] [address] Sep, [facility] [address] [id number] [address] [place] [address], [place] [address] Aug, [facility] [address] [id number] [address] [place] [address], [place] [address] Aug, [facility] [address] [id number] [address] [place] [address], [place] [address] Aug, [facility] [address] [id number] [address] [place] [address], [place] [address] Aug, [facility] [address] [id number] [address] [place] [address], [place] [address] Aug, [facility] [address] [id number] [address] [place] [address], [place] [address] Jun, [facility] [address] [id number] [address] [place] [address] [address] May, [facility] [address] [id number] [address] [place] [address], [place] [address] Mar, [facility] [address] [id number] [address] [place] [address], [place] [address] Mar, [facility] [address] [id number] [address] [place] [address], [place] [address] Feb, [facility] [address] [id number] [address] [place] [address], [place] [address] Jan, [facility] [address] [id number] [address] [place] [address], [place] [address] Jan, [facility] [address] [id number] [address] [place] [address], [place] [address] Jan, [facility] [address] [id number] [address] [place] [address], [place] [address] Jan, [facility] [address] [id number] [address] [place] [address], [place] [address] Dec, [facility] [address] [id number] [address] [place] [address], [place] [address] Dec, [facility] [address] [id number] [address] [place] [address], [place] [address] Dec, [facility] [address] [id number] [address] [place] [address], [place] [address] Dec, [facility] [address] [id number] [address] [place] [address] Feb, [facility] [address] [id number] [address] [place] [address], [place] [address] Jan, [facility] [address] [id number] [address] [place] [address], [place] [address] Jan, [facility] [address] [id number] [address] [place] [address], [place] [address] July, [facility] [address] [id number] [address] [place] [id number] 17 Jul, 2009 [facility] [address] [id number] [address] [place] [id number] July, [facility] [address] [id number] [address] [place] [id number] July, [facility] [address] [facility] [id number] [address] [place] [address] July, [facility] [address] [facility] [id number] [address] [place] [address] Feb, [facility] [address] [facility] [id number] [address] [place] [address] Feb, [facility] [address] [facility] [id number] [address] [place] [address] Jan, [facility] [address] [facility] [id number] [address] [place] [address] Jan, IMMUNIZATIONS No Known Immunizations SOCIAL HISTORY [...] 2014 Surgical History tonsillectomy Surgical History tubal midkayvy-Nxfoua-ud dev eloped respiratory issues and heart failure following the surgery 01/2011 Surgical History echo-07/2009, 10/21/09, 04/15, 10/04/10 Hospitalization History PPD #4 for non-ischemic card iomyopathy, respiratory distress due to pulmonary edema, ARF 07/2009 Hospitalization History surgeries
--- OUTSIDE RECORDS SUMMARY | 2019-10-21 21:40 | XMS REPORT ---
Author Author Renate Marcano Organization [facility] Address [address] [place] [address] Care Team Providers Care Ux Specialist Name Role Phone ROSALIA Marcano Unavailable PROBLEMS Type Condition ICD9-CM Code TKW19-IM Code Onset Dates Condition S tatus SNOMED Code Problem Seasonal allergic rhinitis due to pollen J30.1 Active 00433904 Problem Heart failure, unspecified H F chronicity, unspecified heart failure type I50.9 Active 85847674 Problem Asthma J45.909 Active 209165105 ALLERGIES No Information ENCOUNTERS Encounter Location Date Diagnosis [facility] [address] [id number] [address] [place] [address] Sep[facility] [address] [facility] [id number] [address] [place] [address] July, Dental abscess K04.7 [facility] [address] [facility] [id number] [address] [place] [address] Jun, Acute left-sided low back pa in without sciatica M54.5 [facility] [address] [facility] [id number] [address] [place] [address] May, Sore throat J02.9 [facility] [address] [facility] [id number] [address] [place] [address] Nov, [facility] [address] [facility] [id number] [address] [place] [address] Aug, [facility] [address] [facility] [id number] [address] [place] [address] July, [facility] [address] [facility] [id number] [address] [place] [address] July, [facility] [address] [place] [id number] [address] [place] [address] May, [facility] [address] [address] May, Morbid obesity E66.01 and Lo calized edema R60.0 [facility] [address] [address] Apr, [facility] [address] [address] Mar, [facility] [address] [address] Mar, Heart failure, unspecified H F chronicity, unspecified heart failure type I50.9 [facility] [address] [address] Apr, Seasonal allergic rhinitis d ue to pollen J30.1 and Asthma J45.909 [facility] [address] [address] Jan, Seasonal allergic rhinitis d ue to pollen J30.1 [facility] [address] [address] Dec, Acute upper respiratory infe ction, unspecified J06.9 [facility] [address] [address] Dec, [facility] [address] [address] July, Environmental allergies Z91. 09 [place] [address] [address] Oct, Abscess 682.9 [facility] [address] [address] Oct, Mood disorder 296.90 [facility] [address] [address] Sep, Screen for STD (sexually tra nsmitted disease) V74.5 [facility] [address] [id number] [address] [place] [address] 15 Sep, 2014 [facility] [address] [id number] [address] [place] [address] 13 Sep, 2014 Depression 311 [facility] [address] [id number] [address] [place] [phone] 13 Sep, 2014 Major depressive disorder, r ecurrent episode, severe 296.33 and No condition on [place] II V71.09 [facility] [address] [id number] [address] [place] [address] 10 Sep, 2014 [facility] [address] [id number] [address] [place] [address] 14 Jun, 2014 [facility] [address] [id number] [address] [place] [phone] Jun, [facility] [address] [id number] [address] [place] [phone] 16 Nov, 2013 [facility] [address] [id number] [address] [place] [phone] 16 Nov, 2013 [facility] [address] [id number] [address] [place] [id number] 15 Nov, 2013 [facility] [address] [id number] [address] [place] [address] [address], [address] [facility] [address] [id number] [address] [place] [phone] [address], [address] [facility] [address] [id number] [address] [place] [phone] Nov, [facility] [address] [id number] [address] [place] [phone] Oct, [facility] [address] [id number] [address] [place] [phone] Oct, [facility] [address] [id number] [facility] [place] [address] Aug, [facility] [address] [id number] [address] [place] [address], [place] [address] Aug, [facility] [address] [id number] [address] [place] [address], [place] [address] Aug, [facility] [address] [id number] [address] [place] [address], [place] [address] Aug, [facility] [address] [id number] [address] [place] [address], [place] [address] July, [facility] [address] [id number] [address] [place] [address], [place] [address] July, [facility] [address] [id number] [address] [place] [address], [place] [address] July, [facility] [address] [id number] [address] [place] [address], [place] [address] July, [facility] [address] [id number] [address] [place] [address], [place] [address] Jun, [facility] [address] [id number] [address] [place] [address], [place] [address] Jun, [facility] [address] [id number] [address] [place] [address], [place] [address] May, [facility] [address] [id number] [address] [place] [address], [place] [address] May, [facility] [address] [id number] [address] [place] [address], [place] [address] May, [facility] [address] [id number] [address] [place] [address], [place] [address] May, [facility] [address] [id number] [address] [place] [address], [place] [address] May, [facility] [address] [id number] [place] [address] Mar, [facility] [address] [id number] [address] [place] [address], [place] [address] Mar, [facility] [address] [id number] [address] [place] [address], [place] [address] Mar, [facility] [address] [id number] [address] [place] [address], [place] [address] Mar, [facility] [address] [id number] [address] [place] [address], [place] [address] Mar, [facility] [address] [id number] [address] [place] [address], [place] [address] Mar, [facility] [address] [id number] [address] [place] [address], [place] [address] Mar, [facility] [address] [id number] [address] [place] [address], [place] [address] Feb, [facility] [address] [id number] [address] [place] [address], [place] [address] Feb, [facility] [address] [id number] [address] [place] [address], [place] [address] Jan, [facility] [address] [id number] [address] [place] [address], [place] [address] Jan, [facility] [address] [id number] [address] [place] [address], [place] [address] Jan, [facility] [address] [id number] [address] [place] [address] Jan, [facility] [address] [id number] [address] [place] [address], [place] [address] Nov, [facility] [address] [id number] [address] [place] [address], [place] [address] Nov, [facility] [address] [id number] [address] [place] [address], [place] [address] Sep, [facility] [address] [id number] [facility] [place] [address] Aug, [facility] [address] [id number] [address] [place] [address], [place] [address] Aug, [facility] [address] [id number] [address] [place] [address], [place] [address] Aug, [facility] [address] [id number] [address] [place] [address], [place] [address] July, [facility] [address] [id number] [address] [place] [address], [place] [address] July, [facility] [address] [id number] [address] [place] [address], [place] [address] Jun, [facility] [address] [id number] [address] [place] [address], [place] [address] May, [facility] [address] [id number] [address] [place] [address], [place] [address] 18 May, 2012 [facility] [address] [id number] [address] [place] [address], [place] [address] 14 May, 2012 [facility] [address] [id number] [address] [place] [address], [place] [address] May, [facility] [address] [id number] [address] [place] [address], [place] [address] May, [facility] [address] [id number] [address] [place] [address], [place] [address] 11 May, 2012 [facility] [address] [id number] [address] [place] [address], [place] [address] 06 May, 2012 [facility] [address] [id number] [address] [place] [address], [place] [address] 06 May, 2012 [facility] [address] [id number] [address] [place] [address], [place] [address] 06 May, 2012 [facility] [address] [id number] [address] [place] [address], [place] [address] May, [facility] [address] [id number] [address] [place] [address], [place] [address] May, [facility] [address] [id number] [address] [place] [address], [place] [address] Apr, [facility] [address] [id number] [address] [place] [address], [place] [address] Mar, [facility] [address] [id number] [address] [place] [address], [place] [address] Mar, [facility] [address] [id number] [address] [place] [address], [place] [address] Jan, [facility] [address] [id number] [address] [place] [address], [place] [address] Jan, [facility] [place] [address] [id number] [place] [id number] Oct, [facility] [address] [id number] [address] [place] [address], [place] [address] Sep, [facility] [address] [id number] [address] [place] [address], [place] [address] Sep, [facility] [address] [id number] [address] [place] [address], [place] [address] Aug, [facility] [address] [id number] [address] [place] [address], [place] [address] Aug, [facility] [address] [id number] [address] [place] [address], [place] [address] Aug, [facility] [address] [id number] [address] [place] [address], [place] [address] Aug, [facility] [address] [id number] [address] [place] [address], [place] [address] Aug, [facility] [address] [id number] [address] [place] [address], [place] [address] Jun, [facility] [address] [id number] [address] [place] [address], [place] [address] May, [facility] [address] [id number] [address] [place] [address], [place] [address] Mar, [facility] [address] [id number] [address] [place] [address], [place] [address] Mar, [facility] [address] [id number] [address] [place] [address], [place] [address] Feb, [facility] [address] [id number] [address] [place] [address], [place] [address] Jan, [facility] [address] [id number] [address] [place] [address], [place] [address] Jan, [facility] [address] [id number] [address] [place] [address], [place] [address] Jan, [facility] [address] [id number] [address] [place] [address], [place] [address] Jan, [facility] [address] [id number] [address] [place] [address], [place] [address] Dec, [facility] [address] [id number] [address] [place] [address], [place] [address] Dec, [facility] [address] [id number] [address] [place] [address], [place] [address] Dec, [facility] [address] [id number] [address] [place] [address], [place] [address] Dec, [facility] [address] [id number] [address] [place] [address], [place] [address] Feb, [facility] [address] [id number] [address] [place] [address], [place] [address] Jan, [facility] [address] [id number] [address] [place] [address], [place] [address] Jan, [facility] [address] [id number] [address] [place] [address], [place] [address] July, [facility] [address] [id number] [address] [place] [address] 17 Jul, 2009 [facility] [address] [id number] [address] [place] [address] July, [facility] [address] [id number] [address] [place] [address] 11 Jul, 2009 [facility] [address] [id number] [address] [place] [address] July, [facility] [address] [id number] [address] [place] [address] Feb, [facility] [address] [id number] [address] [place] [address] Feb, [facility] [address] [facility] [id number] [address] [place] [address] Jan, [facility] [address] [facility] [id number] [address] [place] [address] Jan, IMMUNIZATIONS No Known Immunizations SOCIAL HISTORY Never Assessed REASON FOR VISIT PLAN OF CARE VITAL SIGNS Height 65.5 in 2012-05-13 Weight 271 lbs 2012-05-13 Temperature 96.6 degrees Fahrenheit 2012-05-13 Heart Rate 90 bpm 2012-05-13 Respiratory Rate 18 bpm 2012-05-13 Blood pressure systolic 110 mmHg 2012-05-13 Blood pressure diastolic 80 mmHg 2012-05-13 MEDICATIONS Unknown Medications RESULTS No Results PROCEDURES Procedure Date Ordered Result Body Site TRICHOMONAS VAGIN, DIR PROBE May 13, 2012 SCR PAP SMER;NEW PT OBTAIN PREP&CONVY-LAB May 13, 2012 CYTOPATH C/V AUTO FLUID REDO May 13, 2012 CHYLMD TRACH, DNA, AMP PROBE May 13, 2012 CULTURE, BACTERIA, OTHER May 13, 2012 INSTRUCTIONS MEDICATIONS ADMINISTERED No Known Medications MEDICAL (GENERAL) HISTORY Type Description Date Medical History asthma-dx at age 11-12 Medical History hypertension-hx of pre-eclam psia with second , was induced at 35 weeks Medical History cardiomyopathy- (non-ischemic) (Erin) Medical History depression Medical History CHF Surgical History tonsillectomy Surgical History tubal 2014 Surgical History tonsillectomy Surgical History tubal trtxqutg-[id number]-qv dev eloped respiratory issues and heart failure following the surgery 01/2011 Surgical History echo-07/2009, 10/21/09, 04/15, 10/04/10 Hospitalization History PPD #4 for non-ischemic card iomyopathy, respiratory distress due to pulmonary edema, ARF 07/2009 Hospitalization History surgeries
--- OUTSIDE RECORDS SUMMARY | 2019-10-21 21:40 | XMS REPORT | Clinical Summary ---
Author Author [facility] Organization [facility] Address Unknown Phone Unavailable Care Team Providers Care Supervisor [employer] Name Role Phone Self, Referral PCP Unavailable Jose Scanlon DO Unavailable Unavailable Source Comments Some departments are not documenting in the electronic medical record. If you d o not see the information that you expected, contact Release of Information in [facility] [employer] Information Management department at [phone] for further assistan ce in locating additional records.[facility] Allergies Comments Active Allergy Reactions Severity Noted Date Paroxetine Hcl RASH 05/08/2013 Medications End Date Status Medication Sig Dispensed Refills Start Date Active aspirin 325 mg tablet Take 325 mg 0 by mouth daily. Active potassium chloride SR Take 10 mEq 0 (K-DUR) 10 mEq tablet by mouth daily. Active furosemide (LASIX) 40 mg Take 40 mg by 0 tablet mouth daily. Active carvedilol (COREG) 12.5 Take 12.5 mg 0 mg tablet by mouth twice daily with meals. Active omeprazole DR(+) Take 20 mg by 0 (PRILOSEC) 20 mg capsule mouth daily. Active spironolactone Take 25 mg by 0 (ALDACTONE) 25 mg tablet mouth daily. Active enalapril (VASOTEC) 5 mg Take 5 mg by 0 tablet mouth daily. Active digoxin (LANOXIN) 125 mcg Take 0.125 mg 0 tablet by mouth daily. Active niacin (NIACIN) 100 mg Take 100 mg 0 tab by mouth. Active albuterol (VENTOLIN HFA, Inhale 2 0 PROAIR HFA) 90 Puffs by mcg/actuation inhaler mouth every 6 hours as needed. Active fluticasone (FLONASE) 50 i spray each 1 Inhaler 1 mcg/actuation nasal spray nostril x 1 4 wk, then as needed Active permethrin (ELIMITE) 5 % Apply per 1 Container 2 0 topical cream scabies 4 instructions and repeat in 7 days Active Problems No known active problems Social History Date Tobacco Use Types Packs/Day Years Used Current Every Day Smoker Cigarettes Smokeless Tobacco: Never Used Drinks/Week oz/Week Comments Alcohol Use Not Asked Sex Assigned at Date Recorded Not on file Last Filed Vital Signs Reading Time Taken Comments Vital Sign 130/90 05/08/2013 12:26 PM [employer]NA[employer] Blood Pressure 76 05/08/2013 12:26 PM [employer] Pulse 36.7 C (98.1 F) 05/08/2013 12:26 PM [employer]NA[employer] Temperature 16 05/08/2013 12:26 PM MANAGER [employer] Respiratory Rate - - Oxygen Saturation - - Inhaled Oxygen Concentration 130.4 kg (287 lb 6.4 oz) 05/08/2013 12:26 PM MANAGER [employer]EL[employer] Weight 166.6 cm (5' 5.6") 05/08/2013 12:26 PM [employer]NAGER [employer] Height 46.96 05/08/2013 12:26 PM MANAGER [employer]ELOP[employer] Body Mass Index Plan of Treatment Health Maintenance Due Date Last Done Comments HIV SCREENING 1997 DTAP/TDAP VACCINES (1 - 2000 Tdap) HEPATITIS C SCREENING 2000 PHYSICAL (COMPREHENSIVE) 2000 EXAM CERVICAL CANCER SCREENING 08/21/2003 INFLUENZA VACCINE 12/04/2019 Results Not on filefrom Last 3 Months Insurance Type Payer Benefit Subscriber ID Effective Phone Address Plan / Dates Group Medicaid [facility] MEDICAID [facility] [id number] 2013-P [employer] [address] amily (Home) [place] [address] Advance Directives Patient 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
--- OUTSIDE RECORDS SUMMARY | 2019-10-21 21:40 | XMS REPORT ---
Author Author Renate VILLA [facility] Address [address] [place] [address] Care Team Providers Care Plate Glass Polisher Name Role Phone ALLEN MING Unavailable PROBLEMS Type Condition ICD9-CM Code [id number] Code Onset Dates Condition S tatus SNOMED Code Problem Seasonal allergic rhinitis due to pollen J30.1 Active 03711548 Problem Heart failure, unspecified H F chronicity, unspecified heart failure type I50.9 Active 60384488 Problem Asthma J45.909 Active 757230860 ALLERGIES No Information ENCOUNTERS Encounter Location Date Diagnosis [facility] [address] [facility] [id number] [address] [place] [address] Sep, [facility] [address] [facility] [id number] [address] [place] [address] July, Dental abscess K04.7 [facility] [address] [facility] [id number] [address] [place] [address] Jun, Acute left-sided low back pa in without sciatica M54.5 [facility] [address] [facility] [id number] [address] [place] [address] May, Sore throat J02.9 [facility] [address] [id number] [address] [place] [address] Nov, [facility] [address] [id number] [address] [place] [address] Aug, [facility] [address] [facility] [id number] [address] [place] [address] July, [facility] [address] [facility] [id number] [address] [place] [address] July, [facility] [address] [address] May, [facility] [address] [address] May, Morbid obesity E66.01 and Lo calized edema R60.0 [facility] [address] [address] Apr, [facility] [address] [address] Mar, [facility] [address] [address] Mar, Heart failure, unspecified H F chronicity, unspecified heart failure type I50.9 [facility] [address] [address] Apr, Seasonal allergic rhinitis d ue to pollen J30.1 and Asthma J45.909 [facility] [address] [address] Jan, Seasonal allergic rhinitis d ue to pollen J30.1 [facility] [address] [address] Dec, Acute upper respiratory infe ction, unspecified J06.9 [facility] [address] [address] Dec, [facility] [address] [address] July, Environmental allergies Z91. 09 [place] [address] [address] Oct, Abscess 682.9 [facility] [address] [address] Oct, Mood disorder 296.90 [facility] [address] [address] Sep, Screen for STD (sexually tra nsmitted disease) V74.5 [facility] [address] [id number] [address] [place] [address] 15 Sep, 2014 [facility] [address] [id number] [address] [place] [address] 13 Sep, [address] [facility] [address] [id number] [address] [place] [address] Sep, Major depressive disorder, r ecurrent episode, severe 296.33 and No condition on [place] II V71.09 [facility] [address] [id number] [address] [place] [address] [address], [address] [facility] [address] [id number] [address] [place] [address] [address], [address] [facility] [address] [id number] [address] [place] [address] Jun, [facility] [address] [id number] [address] [place] [id number] [address], [address] [facility] [address] [id number] [address] [place] [address] [address], [address] [facility] [address] [id number] [address] [place] [id number] [address], [address] [facility] [address] [id number] [address] [place] [address] 15 Nov, 2013 [facility] [address] [id number] [address] [place] [address] Nov, [facility] [address] [id number] [address] [place] [address] Nov, [facility] [address] [id number] [address] [place] [address] Oct, [facility] [address] [facility] [id number] [address] [place] [address] Oct, [facility] [address] [id number] [facility] [place] [address] Aug, [facility] [address] [id number] [facility] [place] [address] Aug, [facility] [address] [id number] [facility] [place] [address] Aug, [facility] [address] [id number] [address] [place] [address], [place] [address] Aug, [facility] [address] [id number] [facility] [place] [address] July, [facility] [address] [id number] [address] [place] [address], [place] [address] July, [facility] [address] [id number] [address] [place] [address], [place] [address] July, [facility] [address] [id number] [address] [place] [address], [place] [address] July, [facility] [address] [id number] [address] [place] [address], [place] [address] Jun, [facility] [address] [id number] [address] [place] [address], [place] [address] Jun, [facility] [address] [id number] [address] [place] [address], [place] [address] May, [facility] [address] [id number] [address] [place] [address], [place] [address] May, [facility] [address] [id number] [address] [place] [address], [place] [address] May, [facility] [address] [id number] [address] [place] [address], [place] [address] May, [facility] [address] [id number] [address] [place] [address], [place] [address] May, [facility] [address] [id number] [address] [place] [address], [place] [address] Mar, [facility] [address] [id number] [address] [place] [address], [place] [address] Mar, [facility] [address] [id number] [address] [place] [address], [place] [address] Mar, [facility] [address] [id number] [address] [place] [address], [place] [address] Mar, [facility] [address] [id number] [address] [place] [address], [place] [address] Mar, [facility] [address] [id number] [address] [place] [address], [place] [address] Mar, [facility] [address] [id number] [address] [place] [address], [place] [address] Mar, [facility] [address] [id number] [address] [place] [address], [place] [address] Feb, [facility] [address] [id number] [address] [place] [address], [place] [address] Feb, [facility] [address] [id number] [address] [place] [address], [place] [address] Jan, [facility] [address] [id number] [address] [place] [address], [place] [address] Jan, [facility] [address] [id number] [address] [place] [address], [place] [address] Jan, [facility] [address] [id number] [address] [place] [address] Jan, [facility] [address] [id number] [address] [place] [address], [place] [address] Nov, [facility] [address] [id number] [address] [place] [address], [place] [address] Nov, [facility] [address] [id number] [address] [place] [address], [place] [address] Sep, [facility] [address] [id number] [address] [place] [address], [place] [address] 12 Aug, 2012 [facility] [address] [id number] [address] [place] [address], [place] [address] 05 Aug, 2012 [facility] [address] [id number] [address] [place] [address], [place] [address] Aug, [facility] [address] [id number] [address] [place] [address], [place] [address] July, [facility] [address] [id number] [address] [place] [address], [place] [address] July, [facility] [address] [id number] [address] [place] [address], [place] [address] Jun, [facility] [address] [id number] [address] [place] [address], [place] [address] May, [facility] [address] [id number] [address] [place] [address], [place] [address] 18 May, 2012 [facility] [address] [id number] [address] [place] [address], [place] [address] 14 May, 2012 [facility] [address] [id number] [address] [place] [address], [place] [address] 13 May, 2012 [facility] [address] [id number] [address] [place] [address], [place] [address] May, [facility] [address] [id number] [address] [place] [address], [place] [address] 11 May, 2012 [facility] [address] [id number] [address] [place] [address], [place] [address] 06 May, 2012 [facility] [address] [id number] [address] [place] [address], [place] [address] 06 May, 2012 [facility] [address] [id number] [address] [place] [address], [place] [address] 06 May, 2012 [facility] [address] [id number] [address] [place] [address], [place] [address] 06 May, 2012 [facility] [address] [id number] [address] [place] [address], [place] [address] May, [facility] [address] [id number] [address] [place] [address], [place] [address] Apr, [facility] [address] [id number] [address] [place] [address], [place] [address] Mar, [facility] [address] [id number] [address] [place] [address], [place] [address] Mar, [facility] [address] [id number] [address] [place] [address], [place] [address] Jan, [facility] [address] [id number] [address] [place] [address], [place] [address] Jan, [facility] [address] [id number] [id number] Oct, [facility] [address] [id number] [address] [place] [address], [place] [address] Sep, [facility] [address] [id number] [address] [place] [address], [place] [address] Sep, [facility] [address] [id number] [address] [place] [address], [place] [address] Aug, [facility] [address] [id number] [address] [place] [address], [place] [address] Aug, [facility] [address] [id number] [address] [place] [address], [place] [address] Aug, [facility] [address] [id number] [address] [place] [address], [place] [address] Aug, [facility] [address] [id number] [address] [place] [address], [place] [address] Aug, [facility] [address] [id number] [address] [place] [address], [place] [address] Jun, [facility] [address] [id number] [address] [place] [address] [address] May, [facility] [address] [id number] [address] [place] [address], [place] [address] Mar, [facility] [address] [id number] [address] [place] [address], [place] [address] Mar, [facility] [address] [id number] [address] [place] [address], [place] [address] Feb, [facility] [address] [id number] [address] [place] [address], [place] [address] Jan, [facility] [address] [id number] [address] [place] [address], [place] [address] Jan, [facility] [address] [id number] [address] [place] [address], [place] [address] Jan, [facility] [address] [id number] [address] [place] [address], [place] [address] Jan, [facility] [address] [id number] [address] [place] [address], [place] [address] Dec, [facility] [address] [id number] [address] [place] [address], [place] [address] Dec, [facility] [address] [id number] [address] [place] [address], [place] [address] Dec, [facility] [address] [id number] [address] [place] [address], [place] [address] Dec, [facility] [address] [id number] [address] [place] [address] Feb, [facility] [address] [id number] [address] [place] [address], [place] [address] Jan, [facility] [address] [id number] [address] [place] [address], [place] [address] Jan, [facility] [address] [id number] [address] [place] [address], [place] [address] July, [facility] [address] [id number] [address] [place] [address] 17 Jul, 2009 [facility] [address] [id number] [address] [place] [address] July, [facility] [address] [id number] [address] [place] [address] July, [facility] [address] [id number] [address] [place] [address] July, [facility] [address] [id number] [address] [place] [address] Feb, [facility] [address] [id number] [address] [place] [address] Feb, [facility] [address] [facility] [id number] [address] [place] [address] Jan, [facility] [address] [facility] [id number] [address] [place] [address] Jan, IMMUNIZATIONS No Known Immunizations SOCIAL HISTORY Never Assessed REASON FOR VISIT PLAN OF CARE VITAL SIGNS MEDICATIONS Unknown Medications RESULTS No Results PROCEDURES Procedure Date Ordered Result Body Site LIPID PANEL August 02, 2012 COMPREHEN METABOLIC PANEL August 02, 2012 ASSAY OF VITAMIN D August 02, 2012 VENCHRISTIUNCT, ROUTINE* August 02, 2012 INSTRUCTIONS MEDICATIONS ADMINISTERED No Known Medications MEDICAL (GENERAL) HISTORY Type Description Date Medical History asthma-dx at age 11-12 Medical History hypertension-hx of pre-eclam psia with second , was induced at 35 weeks Medical History cardiomyopathy- (non-ischemic) (Erin) Medical History depression Medical History CHF Surgical History tonsillectomy Surgical History tubal 2014 Surgical History tonsillectomy Surgical History tubal sgrggcwt-[id number]-fk dev eloped respiratory issues and heart failure following the surgery 01/2011 Surgical History echo-07/2009, 10/21/09, 04/15, 10/04/10 Hospitalization History PPD #4 for non-ischemic card iomyopathy, respiratory distress due to pulmonary edema, ARF 07/2009 Hospitalization History surgeries
--- OUTSIDE RECORDS SUMMARY | 2019-10-21 21:41 | XMS REPORT ---
Author Author Renate VILLA [facility] Address [address] [place] [address] Care Team Providers Care Internet Manager Name Role Phone ALLENJEAN-CLAUDEA Unavailable PROBLEMS Type Condition ICD9-CM Code QSL06-OG Code Onset Dates Condition S tatus SNOMED Code Problem Seasonal allergic rhinitis due to pollen J30.1 Active 09521076 Problem Heart failure, unspecified H F chronicity, unspecified heart failure type I50.9 Active 73046322 Problem Asthma J45.909 Active [id number] ALLERGIES No Information ENCOUNTERS Encounter Location Date Diagnosis [facility] [address] [facility] [id number] [address] [place] [address] July, Dental abscess K04.7 [facility] [address] [id number] [address] [place] [id number] Jun, Acute left-sided low back pa in without sciatica M54.5 [facility] [address] [id number] [address] [place] [address] May, Sore throat J02.9 [facility] [address] [id number] [address] [place] [address] Nov, [facility] [address] [id number] [address] [place] [address] Aug, [facility] [address] [id number] [address] [place] [address] July, [facility] [address] [facility] [facility] [id number] [address] [place] [address] July, [facility] [address] [facility] [facility] [id number] [address] [place] [address] May, [facility] [address] [address] May, Morbid obesity E66.01 and Lo calized edema R60.0 [place] [address] [address] 14 Apr, 2018 [facility] [address] [address] Mar, [facility] [address] [address] Mar, Heart failure, unspecified H F chronicity, unspecified heart failure type I50.9 [facility] [address] [address] Apr, Seasonal allergic rhinitis d ue to pollen J30.1 and Asthma J45.909 [facility] [place] [address] [address] Jan, Seasonal allergic rhinitis d ue to pollen J30.1 [facility] [address] [address] Dec, Acute upper respiratory infe ction, unspecified J06.9 [place] [address] [address] Dec, [facility] [address] [address] July, Environmental allergies Z91. 09 [facility] [address] [address] Oct, Abscess 682.9 [place] [address] [address] Oct, Mood disorder 296.90 [place] [address] [address] Sep, Screen for STD (sexually tra nsmitted disease) V74.5 [place] [address] [address] [place] [id number] [place] [address] 15 Sep, 2014 [facility] [address] [id number] [address] [place] [address] 13 Sep, 2014 Depression 311 [facility] [place] [address] [id number] [address] [place] [address] 13 Sep, 2014 Major depressive disorder, r ecurrent episode, severe 296.33 and No condition on Ideal II V71.09 [facility] [place] [address] [id number] [address] [place] [address] 10 Sep, 2014 [facility] [place] [address] [id number] [address] [place] [address] 14 Jun, 2014 [facility] [place] [address] [id number] [address] [place] [address] 13 Jun, 2014 [facility] [place] [address] [id number] [address] [place] [address] 16 Nov, 2013 [facility] [address] [id number] [address] [place] [address] 16 Nov, 2013 [facility] [address] [id number] [address] [place] [address] 15 Nov, 2013 [facility] [place] [address] [id number] [address] [place] [address] 15 Nov, 2013 [facility] [address] [id number] [address] [place] [address] 12 Nov, 2013 [facility] [address] [id number] [address] [place] [address] 12 Nov, 2013 [facility] [address] [id number] [address] [place] [address] Oct, [facility] [address] [id number] [address] [place] [address] Oct, [facility] [place] [address] [id number] [address] [place] [address] Aug, [facility] [address] [id number] [facility] [place] [address] Aug, [facility] [address] [id number] [facility] [place] [address] Aug, [facility] [address] [id number] [facility] [place] [address] Aug, [facility] [address] [id number] [address] [place] [address], [place] [address] July, [facility] [address] [id number] [address] [place] [address], [place] [address] July, [facility] [address] [id number] [address] [place] [address], [place] [address] July, [facility] [address] [id number] [address] [place] [address], [place] [address] July, [facility] [address] [id number] [address] [place] [address], [place] [address] Jun, [facility] [address] [id number] [address] [place] [address], [place] [address] Jun, [facility] [address] [id number] [address] [place] [address], [place] [address] May, [facility] [address] [id number] [address] [place] [address], [place] [address] May, [facility] [address] [id number] [address] [place] [address], [place] [address] May, [facility] [address] [id number] [address] [place] [address], [place] [address] May, [facility] [address] [id number] [address] [place] [address], [place] [address] May, [facility] [address] [id number] [address] [place] [address], [place] [address] Mar, [facility] [address] [id number] [address] [place] [address], [place] [address] Mar, [facility] [address] [id number] [address] [place] [address], [place] [address] Mar, [facility] [address] [id number] [address] [place] [address], [place] [address] Mar, [facility] [address] [id number] [address] [place] [address], [place] [address] Mar, [facility] [address] [id number] [address] [place] [address], [place] [address] Mar, [facility] [address] [id number] [address] [place] [address], [place] [address] Mar, [facility] [address] [id number] [address] [place] [address], [place] [address] Feb, [facility] [address] [id number] [address] [place] [address], [place] [address] Feb, [facility] [address] [id number] [address] [place] [address], [place] [address] Jan, [facility] [address] [id number] [address] [place] [address], [place] [address] Jan, [facility] [address] [id number] [address] [place] [address], [place] [address] Jan, [facility] [address] [id number] [address] [place] [address], [place] [address] Jan, [facility] [address] [id number] [address] [place] [address], [place] [address] Nov, [facility] [address] [id number] [address] [place] [address], [place] [address] Nov, [facility] [address] [id number] [address] [place] [address], [place] [address] Sep, [facility] [address] [id number] [address] [place] [address], [place] [address] Aug, [facility] [address] [id number] [facility] [place] [address] 05 Aug, 2012 [facility] [address] [id number] [address] [place] [address], [place] [address] Aug, [facility] [address] [id number] [address] [place] [address], [place] [address] July, [facility] [address] [id number] [address] [place] [address], [place] [address] July, [facility] [address] [id number] [address] [place] [address], [place] [address] Jun, [facility] [address] [id number] [address] [place] [address], [place] [address] 28 May, 2012 [facility] [address] [id number] [address] [place] [address], [place] [address] 18 May, 2012 [facility] [address] [id number] [address] [place] [address], [place] [address] 14 May, 2012 [facility] [address] [id number] [address] [place] [address], [place] [address] May, [facility] [address] [id number] [address] [place] [address], [place] [address] 12 May, 2012 [facility] [address] [id number] [address] [place] [address], [place] [address] May, [facility] [address] [id number] [address] [place] [address], [place] [address] 06 May, 2012 [facility] [address] [id number] [address] [place] [address], [place] [address] 06 May, 2012 [facility] [address] [id number] [address] [place] [address], [place] [address] 06 May, 2012 [facility] [address] [id number] [address] [place] [address], [place] [address] 06 May, 2012 [facility] [address] [id number] [address] [place] [address], [place] [address] 05 May, 2012 [facility] [address] [id number] [address] [place] [address], [place] [address] Apr, [facility] [address] [id number] [address] [place] [address], [place] [address] Mar, [facility] [address] [id number] [address] [place] [address], [place] [address] Mar, [facility] [address] [id number] [address] [place] [address], [place] [address] Jan, [facility] [address] [id number] [address] [place] [address], [place] [address] Jan, [facility] [address] [id number] [id number] Oct, [facility] [address] [id number] [address] [place] [address], [place] [address] Sep, [facility] [address] [id number] [address] [place] [address], [place] [address] Sep, [facility] [address] [id number] [address] [place] [address], [place] [address] Aug, [facility] [address] [id number] [address] [place] [address], [place] [address] Aug, [facility] [address] [id number] [address] [place] [address], [place] [address] Aug, [facility] [address] [id number] [address] [place] [address], [place] [address] Aug, [facility] [address] [id number] [address] [place] [address], [place] [address] Aug, [facility] [address] [id number] [address] [place] [address], [place] [address] Jun, [facility] [address] [id number] [address] [place] [address], [place] [address] May, [facility] [address] [id number] [address] [place] [address] [address] Mar, [facility] [address] [id number] [address] [place] [address], [place] [address] Mar, [facility] [address] [id number] [address] [place] [address], [place] [address] Feb, [facility] [address] [id number] [address] [place] [address], [place] [address] Jan, [facility] [address] [id number] [address] [place] [address], [place] [address] Jan, [facility] [address] [id number] [address] [place] [address], [place] [address] Jan, [facility] [address] [id number] [address] [place] [address], [place] [address] Jan, [facility] [address] [id number] [address] [place] [address], [place] [address] Dec, [facility] [address] [id number] [address] [place] [address], [place] [address] Dec, [facility] [address] [id number] [address] [place] [address], [place] [address] Dec, [facility] [address] [id number] [address] [place] [address], [place] [address] Dec, [facility] [address] [id number] [address] [place] [address], [place] [address] Feb, [facility] [address] [id number] [address] [place] [id number] Jan, [facility] [address] [id number] [address] [place] [address], [place] [address] Jan, [facility] [address] [id number] [address] [place] [address], [place] [address] July, [facility] [address] [id number] [address] [place] [address], [place] [address] July, [facility] [address] [id number] [address] [place] [id number] 13 Jul, 2009 [facility] [address] [id number] [address] [place] [address] July, [facility] [address] [facility] [id number] [address] [place] [address] July, [facility] [address] [facility] [id number] [address] [place] [address] Feb, [facility] [address] [facility] [id number] [address] [place] [address] Feb, [facility] [address] [facility] [id number] [address] [place] [address] Jan, [facility] [address] [facility] [id number] [address] [place] [address] Jan, IMMUNIZATIONS No Known Immunizations SOCIAL HISTORY Never Assessed REASON FOR VISIT PLAN OF CARE VITAL SIGNS MEDICATIONS No Known Medications RESULTS No Results PROCEDURES No Known [...] 2014 Surgical History tonsillectomy Surgical History tubal yitzqhed-Hopgqs-[id number] dev eloped respiratory issues and heart failure following the surgery 01/2011 Surgical History echo-07/2009, 10/21/09, 04/15, 10/04/10 Hospitalization History PPD #4 for non-ischemic card iomyopathy, respiratory distress due to pulmonary edema, ARF 07/2009 Hospitalization History surgeries
--- OUTSIDE RECORDS SUMMARY | 2019-10-21 21:41 | XMS REPORT ---
Author Author Renate COATS [facility] Organization [facility] Address [address] [place] [address] Care Team Providers Care Capacitor Repairer Name Role Phone TAMELA STARKLUIS Unavailable PROBLEMS Type Condition ICD9-CM Code [id number] Code Onset Dates Condition S tatus SNOMED Code Problem Seasonal allergic rhinitis due to pollen J30.1 Active 21040160 Problem Heart failure, unspecified H F chronicity, unspecified heart failure type I50.9 Active 49603217 Problem Asthma J45.909 Active 330951724 ALLERGIES No Information ENCOUNTERS Encounter Location Date Diagnosis [facility] [address] [facility] [id number] [address] [place] [address] May, Sore throat J02.9 [facility] [address] [facility] [id number] [address] [place] [address] Nov, [facility] [address] [facility] [id number] [address] [place] [address] Aug, [facility] [address] [facility] [id number] [address] [place] [address] July, [facility] [address] [facility] [id number] [address] [place] [address] July, [facility] [address] [facility] [id number] [address] [place] [address] May, [facility] [address] [place] [id number] [address] [place] [address] May, Morbid obesity E66.01 and Lo calized edema R60.0 [facility] [address] [facility] [id number] [address] [place] [address] Apr, [facility] [address] [place] [id number] [address] [place] [address] Mar, [facility] [address] [address] Mar, Heart failure, unspecified H F chronicity, unspecified heart failure type I50.9 [facility] [address] [address] Apr, Seasonal allergic rhinitis d ue to pollen J30.1 and Asthma J45.909 [facility] [address] [address] Jan, Seasonal allergic rhinitis d ue to pollen J30.1 [facility] [address] [address] Dec, Acute upper respiratory infe ction, unspecified J06.9 [place] [address] [address] Dec, [facility] [address] [address] July, Environmental allergies Z91. 09 [place] [address] [address] Oct, Abscess 682.9 [place] [address] [address] Oct, Mood disorder 296.90 [place] [address] [address] Sep, Screen for STD (sexually tra nsmitted disease) V74.5 [place] [address] [address] 15 Sep, 2014 [place] [address] [address] 13 Sep, 2014 Depression 311 [place] [address] [address] 13 Sep, 2014 Major depressive disorder, r ecurrent episode, severe 296.33 and No condition on [place] II V71.09 [facility] [address] [id number] [address] [place] [address] 10 Sep, 2014 [facility] [address] [id number] [address] [place] [address] 14 Jun, 2014 [facility] [address] [id number] [address] [place] [address] 13 Jun, 2014 [facility] [address] [id number] [address] [place] [address] 16 Nov, 2013 [facility] [address] [id number] [address] [place] [address] 16 Nov, 2013 [facility] [address] [id number] [address] [place] [address] 15 Nov, 2013 [facility] [address] [id number] [address] [place] [address] 15 Nov, 2013 [facility] [address] [id number] [address] [place] [address] 12 Nov, 2013 [facility] [address] [id number] [address] [place] [address] Nov, [facility] [address] [id number] [address] [place] [address] Oct, [facility] [address] [id number] [address] [place] [address] Oct, [facility] [address] [id number] [address] [place] [address] Aug, [facility] [address] [id number] [address] [place] [address] Aug, [facility] [address] [id number] [address] [place] [address] Aug, [facility] [address] [id number] [address] [place] [address] [place] [address] Aug, [facility] [address] [id number] [address] [place] [address], [place] [address] July, [facility] [address] [id number] [address] [place] [address], [place] [address] July, [facility] [address] [id number] [address] [place] [address], [place] [address] July, [facility] [address] [id number] [address] [place] [address], [place] [address] July, [facility] [address] [id number] [address] [place] [address], [place] [address] Jun, [facility] [address] [id number] [address] [place] [address], [place] [address] Jun, [facility] [address] [id number] [address] [place] [address], [place] [address] May, [facility] [address] [id number] [address] [place] [address], [place] [address] May, [facility] [address] [id number] [address] [place] [address], [place] [address] May, [facility] [address] [id number] [address] [place] [address], [place] [address] May, [facility] [address] [id number] [address] [place] [address], [place] [address] May, [facility] [address] [id number] [address] [place] [address], [place] [address] Mar, [facility] [address] [id number] [address] [place] [address], [place] [address] Mar, [facility] [address] [id number] [address] [place] [address], [place] [address] Mar, [facility] [address] [id number] [address] [place] [address], [place] [address] Mar, [facility] [address] [id number] [address] [place] [address], [place] [address] Mar, [facility] [address] [id number] [address] [place] [address], [place] [address] Mar, [facility] [address] [id number] [address] [place] [address], [place] [address] Mar, [facility] [address] [id number] [address] [place] [address], [place] [address] Feb, [facility] [address] [id number] [address] [place] [address], [place] [address] Feb, [facility] [address] [id number] [address] [place] [address], [place] [address] Jan, [facility] [address] [id number] [address] [place] [address], [place] [address] Jan, [facility] [address] [id number] [address] [place] [address], [place] [address] Jan, [facility] [address] [id number] [address] [place] [address], [place] [address] Jan, [facility] [address] [id number] [address] [place] [address], [place] [address] Nov, [facility] [address] [id number] [address] [place] [address], [place] [address] Nov, [facility] [address] [id number] [address] [place] [address], [place] [address] Sep, [facility] [address] [id number] [address] [place] [address], [place] [address] Aug, [facility] [address] [id number] [address] [place] [address], [place] [address] Aug, [facility] [address] [id number] [address] [place] [address], [place] [address] Aug, [facility] [address] [id number] [address] [place] [address], [place] [address] July, [facility] [address] [id number] [address] [place] [address], [place] [address] July, [facility] [address] [id number] [address] [place] [address], [place] [address] Jun, [facility] [address] [id number] [address] [place] [address], [place] [address] May, [facility] [address] [id number] [address] [place] [address], [place] [address] 18 May, 2012 [facility] [address] [id number] [address] [place] [address], [place] [address] 14 May, 2012 [facility] [address] [id number] [address] [place] [address], [place] [address] May, [facility] [address] [id number] [address] [place] [address], [place] [address] May, [facility] [address] [id number] [address] [place] [address], [place] [address] May, [facility] [address] [id number] [address] [place] [address], [place] [address] May, [facility] [address] [id number] [address] [place] [address], [place] [address] May, [facility] [address] [id number] [address] [place] [address], [place] [address] May, [facility] [address] [id number] [address] [place] [address], [place] [address] May, [facility] [address] [id number] [address] [place] [address], [place] [address] 05 May, 2012 [facility] [address] [id number] [address] [place] [address], [place] [address] 06 Apr, 2012 [facility] [address] [id number] [address] [place] [address], [place] [address] Mar, [facility] [address] [id number] [address] [place] [address], [place] [address] Mar, [facility] [address] [id number] [address] [place] [address], [place] [address] Jan, [facility] [address] [id number] [address] [place] [address], [place] [address] Jan, [facility] [address] [id number] [id number] Oct, [facility] [address] [id number] [address] [place] [address], [place] [address] Sep, [facility] [address] [id number] [address] [place] [address], [place] [address] Sep, [facility] [address] [id number] [address] [place] [address], [place] [address] Aug, [facility] [address] [id number] [address] [place] [address], [place] [address] Aug, [facility] [address] [id number] [address] [place] [address], [place] [address] Aug, [facility] [address] [id number] [address] [place] [address], [place] [address] Aug, [facility] [address] [id number] [address] [place] [address], [place] [address] Aug, [facility] [address] [id number] [address] [place] [address], [place] [address] Jun, [facility] [address] [id number] [address] [place] [address], [place] [address] May, [facility] [address] [id number] [address] [place] [address], [place] [address] Mar, [facility] [address] [id number] [address] [place] [address], [place] [address] Mar, [facility] [address] [id number] [address] [place] [address], [place] [address] Feb, [facility] [address] [id number] [address] [place] [address], [place] [address] Jan, [facility] [address] [id number] [address] [place] [address], [place] [address] Jan, [facility] [address] [id number] [address] [place] [address], [place] [address] Jan, [facility] [address] [id number] [address] [place] [address], [place] [address] Jan, [facility] [address] [id number] [address] [place] [address], [place] [address] Dec, [facility] [address] [id number] [address] [place] [address], [place] [address] Dec, [facility] [address] [id number] [address] [place] [address], [place] [address] Dec, [facility] [address] [id number] [address] [place] [address], [place] [address] Dec, [facility] [address] [id number] [address] [place] [address], [place] [address] Feb, [facility] [address] [id number] [address] [place] [address], [place] [address] Jan, [facility] [address] [id number] [address] [place] [address], [place] [address] Jan, [facility] [address] [id number] [address] [place] [address], [place] [address] July, [facility] [address] [id number] [address] [place] [address], [place] [address] July, [facility] [address] [id number] [address] [place] [address], [place] [address] July, [facility] [address] [id number] [address] [place] [address], [place] [address] July, [facility] [address] [id number] [address] [place] [address], [place] [address] July, [facility] [address] [facility] [id number] [address] [address] Feb, [facility] [address] [facility] [id number] [address] [place] [address] Feb, [facility] [address] [facility] [id number] [address] [place] [address] Jan, [facility] [address] [facility] [id number] [address] [place] [address] Jan, IMMUNIZATIONS No Known Immunizations SOCIAL HISTORY [...] 2014 Surgical History tonsillectomy Surgical History tubal qmncbnur-[id number]-dl dev eloped respiratory issues and heart failure following the surgery 01/2011 Surgical History echo-07/2009, 10/21/09, 04/15, 10/04/10 Hospitalization History PPD #4 for non-ischemic card iomyopathy, respiratory distress due to pulmonary edema, ARF 07/2009 Hospitalization History surgeries
--- OUTSIDE RECORDS SUMMARY | 2019-10-21 21:41 | XMS REPORT ---
Author Author Renate MOISE Organization [facility] Address [address] [place] [address] Care Team Providers Care Beamer Hand Name Role Phone ONDINA MOISE Unavailable PROBLEMS Type Condition ICD9-CM Code OMO11-JY Code Onset Dates Condition S tatus SNOMED Code Problem Seasonal allergic rhinitis due to pollen J30.1 Active 26982128 Problem Heart failure, unspecified H F chronicity, unspecified heart failure type I50.9 Active 67404846 Problem Asthma J45.909 Active 224363953 ALLERGIES No Information ENCOUNTERS Encounter Location Date Diagnosis [facility]ALK [facility] [address] [facility] [id number] [address] [place] [address] May, Sore throat J02.9 [facility] [address] [id number] [address] [place] [address] Nov, [facility] [address] [id number] [address] [place] [address] Aug, [facility] [address] [id number] [address] [place] [address] July, [facility] [address] [facility] [id number] [address] [place] [address] July, [facility] [address] [id number] [address] [place] [address] May, [facility] [address] [facility] [id number] [address] [place] [address] May, Morbid obesity E66.01 and Lo calized edema R60.0 [facility] [address] [id number] [address] [place] [address] Apr, [facility] [address] [address] Mar, [facility] [address] [address] Mar, Heart failure, unspecified H F chronicity, unspecified heart failure type I50.9 [facility] [address] [address] Apr, Seasonal allergic rhinitis d ue to pollen J30.1 and Asthma J45.909 [facility] [address] [address] Jan, Seasonal allergic rhinitis d ue to pollen J30.1 [facility] WALK IN [facility] [address] [address] Dec, Acute upper respiratory infe ction, unspecified J06.9 [place] [address] [address] Dec, [facility] [address] [address] July, Environmental allergies Z91. 09 [place] [address] [address] Oct, Abscess 682.9 [place] [address] [address] Oct, Mood disorder 296.90 [place] [address] [address] Sep, Screen for STD (sexually tra nsmitted disease) V74.5 [place] [address] [address] Sep, [place] [address] [address] Sep, Depression 311 [place] [address] [address] Sep, Major depressive disorder, r ecurrent episode, severe 296.33 and No condition on [place] II V71.09 [facility] [address] [id number] [address] [place] [address], [place] [address] 10 Sep, 2014 [facility] [address] [id number] [address] [place] [address], [place] [address] 14 Jun, 2014 [facility] [address] [id number] [address] [place] [address] 13 Jun, 2014 [facility] [address] [id number] [address] [place] [address], [place] [address] 16 Nov, 2013 [facility] [address] [id number] [address] [place] [address], [place] [address] 16 Nov, 2013 [facility] [address] [id number] [address] [place] [address] 15 Nov, 2013 [facility] [address] [id number] [address] [place] [address], [place] [address] 15 Nov, 2013 [facility] [address] [id number] [address] [place] [address] 12 Nov, 2013 [facility] [address] [id number] [address] [place] [address], [place] [address] Nov, [facility] [address] [id number] [address] [place] [address] Oct, [facility] [address] [id number] [address] [place] [address] Oct, [facility] [address] [id number] [address] [place] [address] Aug, [facility] [address] [id number] [address] [place] [address] Aug, [facility] [address] [id number] [address] [place] [address] Aug, [facility] [address] [id number] [address] [place] [address] Aug, [facility] [address] [id number] [address] [place] [address], [place] [address] July, [facility] [address] [id number] [address] [place] [address], [place] [address] July, [facility] [address] [id number] [address] [place] [address], [place] [address] July, [facility] [address] [id number] [address] [place] [address], [place] [address] July, [facility] [address] [id number] [address] [place] [address], [place] [address] Jun, [facility] [address] [id number] [address] [place] [address], [place] [address] Jun, [facility] [address] [id number] [address] [place] [address], [place] [address] May, [facility] [address] [id number] [address] [place] [address], [place] [address] May, [facility] [address] [id number] [address] [place] [address], [place] [address] May, [facility] [address] [id number] [address] [place] [address], [place] [address] May, [facility] [address] [id number] [address] [place] [address], [place] [address] May, [facility] [address] [id number] [address] [place] [address], [place] [address] Mar, [facility] [address] [id number] [address] [place] [address], [place] [address] Mar, [facility] [address] [id number] [address] [place] [address], [place] [address] Mar, [facility] [address] [id number] [address] [place] [address], [place] [address] Mar, [facility] [address] [id number] [address] [place] [address], [place] [address] Mar, [facility] [address] [id number] [address] [place] [address], [place] [address] Mar, [facility] [address] [id number] [address] [place] [address], [place] [address] Mar, [facility] [address] [id number] [address] [place] [address], [place] [address] Feb, [facility] [address] [id number] [address] [place] [address], [place] [address] Feb, [facility] [address] [id number] [address] [place] [address], [place] [address] Jan, [facility] [address] [id number] [address] [place] [address], [place] [address] Jan, [facility] [address] [id number] [address] [place] [address], [place] [address] Jan, [facility] [address] [id number] [address] [place] [address], [place] [address] Jan, [facility] [address] [id number] [address] [place] [address], [place] [address] Nov, [facility] [address] [id number] [address] [place] [address], [place] [address] Nov, [facility] [address] [id number] [address] [place] [address], [place] [address] Sep, [facility] [address] [id number] [address] [place] [address], [place] [address] Aug, [facility] [address] [id number] [address] [place] [address], [place] [address] Aug, [facility] [address] [id number] [address] [place] [address], [place] [address] Aug, [facility] [address] [id number] [address] [place] [address], [place] [address] July, [facility] [address] [id number] [facility] [place] [address] July, [facility] [address] [id number] [facility] [place] [address] 29 Jun, 2012 [facility] [address] [id number] [address] [place] [address], [place] [address] 28 May, 2012 [facility] [address] [id number] [address] [place] [address], [place] [address] 18 May, 2012 [facility] [address] [id number] [address] [place] [address], [place] [address] 14 May, 2012 [facility] [address] [id number] [address] [place] [address], [place] [address] 13 May, 2012 [facility] [address] [id number] [address] [place] [address], [place] [address] May, [facility] [address] [id number] [address] [place] [address], [place] [address] 11 May, 2012 [facility] [address] [id number] [address] [place] [address], [place] [address] May, [facility] [address] [id number] [address] [place] [address], [place] [address] 06 May, 2012 [facility] [address] [id number] [address] [place] [address], [place] [address] May, [facility] [address] [id number] [address] [place] [address], [place] [address] 06 May, 2012 [facility] [address] [id number] [address] [place] [address], [place] [address] 05 May, 2012 [facility] [address] [id number] [address] [place] [address], [place] [address] 06 Apr, 2012 [facility] [address] [id number] [address] [place] [address], [place] [address] 18 Mar, 2012 [facility] [address] [id number] [address] [place] [address], [place] [address] Mar, [facility] [address] [id number] [address] [place] [address], [place] [address] Jan, [facility] [address] [id number] [address] [place] [address], [place] [address] Jan, [facility] [address] [id number] [id number] Oct, [facility] [address] [id number] [address] [place] [address], [place] [address] Sep, [facility] [address] [id number] [address] [place] [address], [place] [address] Sep, [facility] [address] [id number] [address] [place] [address], [place] [address] Aug, [facility] [address] [id number] [address] [place] [address], [place] [address] Aug, [facility] [address] [id number] [address] [place] [address], [place] [address] Aug, [facility] [address] [id number] [address] [place] [address], [place] [address] Aug, [facility] [address] [id number] [address] [place] [address], [place] [address] Aug, [facility] [address] [id number] [address] [place] [address], [place] [address] Jun, [facility] [address] [id number] [address] [place] [address], [place] [address] May, [facility] [address] [id number] [address] [place] [address], [place] [address] Mar, [facility] [address] [id number] [address] [place] [address], [place] [address] Mar, [facility] [address] [id number] [address] [place] [address], [place] [address] Feb, [facility] [address] [id number] [address] [place] [address], [place] [address] Jan, [facility] [address] [id number] [address] [place] [address], [place] [address] Jan, [facility] [address] [id number] [address] [place] [address], [place] [address] Jan, [facility] [address] [id number] [address] [place] [address], [place] [address] Jan, [facility] [address] [id number] [address] [place] [address], [place] [address] Dec, [facility] [address] [id number] [address] [place] [address], [place] [address] Dec, [facility] [address] [id number] [address] [place] [address], [place] [address] Dec, [facility] [address] [id number] [address] [place] [address], [place] [address] Dec, [facility] [address] [id number] [address] [place] [address], [place] [address] Feb, [facility] [address] [id number] [address] [place] [address], [place] [address] Jan, [facility] [address] [id number] [address] [place] [address], [place] [address] Jan, [facility] [address] [id number] [address] [place] [address], [place] [address] July, [facility] [address] [id number] [address] [place] [address], [place] [address] July, [facility] [address] [id number] [address] [place] [address], [place] [address] July, [facility] [address] [id number] [address] [place] [address], [place] [address] July, [facility] [address] [id number] [address] [place] [address], [place] [address] July, [facility] [address] [facility] [id number] [address] [place] [address] Feb, [facility] [address] [facility] [id number] [address] [place] [address] Feb, [facility] [address] [facility] [id number] [address] [place] [address] Jan, [facility] [address] [facility] [id number] [address] [place] [address] Jan, IMMUNIZATIONS No Known Immunizations SOCIAL HISTORY Never Assessed REASON FOR VISIT PLAN OF CARE VITAL SIGNS Height 66 in 2013-10-08 Weight 275.8 lbs 2013-10-08 Temperature 97.1 degrees Fahrenheit 2013-10-08 Heart Rate 86 bpm 2013-10-08 Respiratory Rate 16 2013-10-08 Blood pressure systolic 120 mmHg 2013-10-08 Blood pressure diastolic 78 mmHg 2013-10-08 MEDICATIONS No Known Medications RESULTS No Results PROCEDURES No Known procedures INSTRUCTIONS MEDICATIONS ADMINISTERED No Known Medications MEDICAL (GENERAL) HISTORY Type Description Date Medical History asthma-dx at age 11-12 Medical History hypertension-hx of pre-eclam psia with second , was induced at 35 weeks Medical History cardiomyopathy- (non-ischemic) (Erin) Medical History depression Medical History CHF Surgical History tonsillectomy Surgical History tubal 2013 Surgical History tonsillectomy Surgical History tubal [id number] dev eloped respiratory issues and heart failure following the surgery 01/2011 Surgical History echo-07/2009, 10/21/09, 04/15, 10/04/10 Hospitalization History PPD #4 for non-ischemic card iomyopathy, respiratory distress due to pulmonary edema, ARF 07/2009 Hospitalization History surgeries
--- OUTSIDE RECORDS SUMMARY | 2019-10-21 21:41 | XMS REPORT ---
Author Author Renate VILLA [facility] Address [address] [place] [address] Care Team Providers Care Head Swamper Name Role Phone ALLENJEAN-CLAUDEA Unavailable PROBLEMS Type Condition ICD9-CM Code [id number] Code Onset Dates Condition S tatus SNOMED Code Problem Seasonal allergic rhinitis due to pollen J30.1 Active 52707982 Problem Heart failure, unspecified H F chronicity, unspecified heart failure type I50.9 Active 66934223 Problem Asthma J45.909 Active [id number] ALLERGIES No Information ENCOUNTERS Encounter Location Date Diagnosis [facility] [address] [facility] [id number] [address] [place] [phone] July, Dental abscess K04.7 [facility] [address] [id number] [address] [place] [phone] Jun, Acute left-sided low back pa in without sciatica M54.5 [facility] [address] [facility] [id number] [address] [place] [phone] May, Sore throat J02.9 [facility] [address] [id number] [address] [place] [phone] Nov, [facility] [address] [id number] [address] [place] [phone] Aug, [facility] [address] [id number] [address] [place] [phone] July, [facility] [address] [facility] [id number] [address] [place] [phone] July, [facility] [address] [facility] [id number] [address] [place] [phone] May, [facility] [address] [address] May, Morbid obesity E66.01 and Lo calized edema R60.0 [place] [address] [id number] 14 Apr, 2018 [facility] [address] [address] Mar, [facility] [address] [address] Mar, Heart failure, unspecified H F chronicity, unspecified heart failure type I50.9 [facility] [address] [id number] Apr, Seasonal allergic rhinitis d ue to pollen J30.1 and Asthma J45.909 [facility] [place] [address] [address] Jan, Seasonal allergic rhinitis d ue to pollen J30.1 [facility] [address] [address] Dec, Acute upper respiratory infe ction, unspecified J06.9 [place] [address] [address] Dec, [facility] [address] [address] July, Environmental allergies Z91. 09 [facility] [address] [address] Oct, Abscess 682.9 [place] [address] [address] Oct, Mood disorder 296.90 [place] [address] [address] Sep, Screen for STD (sexually tra nsmitted disease) V74.5 [place] [address] [address] [place] [id number] [place] [id number] 15 Sep, 2014 [facility] [address] [id number] [address] [place] [id number] 13 Sep, 2014 Depression 311 [facility] [address] [id number] [address] [place] [id number] 13 Sep, 2014 Major depressive disorder, r ecurrent episode, severe 296.33 and No condition on [place] II V71.09 [facility] [address] [id number] [address] [place] [id number] 10 Sep, 2014 [facility] [address] [id number] [address] [place] [id number] 14 Jun, 2014 [facility] [address] [id number] [address] [place] [id number] 13 Jun, 2014 [facility] [address] [id number] [address] [place] [phone] 16 Nov, 2013 [facility] [address] [id number] [address] [place] [id number] 16 Nov, 2013 [facility] [address] [id number] [address] [place] [id number] 15 Nov, 2013 [facility] [address] [id number] [address] [place] [id number] 15 Nov, 2013 [facility] [address] [id number] [address] [place] [id number] 12 Nov, 2013 [facility] [address] [id number] [address] [place] [id number] 12 Nov, 2013 [facility] [address] [id number] [address] [place] [phone] Oct, [facility] [address] [id number] [address] [place] [id number] Oct, [facility] [address] [id number] [address] [place] [phone] Aug, [facility] [address] [id number] [facility] [place] [id number] Aug, [facility] [address] [id number] [facility] [place] [address] Aug, [facility] [address] [id number] [facility] [place] [address] Aug, [facility] [address] [id number] [address] [place] [address], [place] [phone] July, [facility] [address] [id number] [address] [place] [address], [place] [phone] July, [facility] [address] [id number] [address] [place] [address], [place] [phone] July, [facility] [address] [id number] [address] [place] [address], [place] [phone] July, [facility] [address] [id number] [address] [place] [address], [place] [address] Jun, [facility] [address] [id number] [address] [place] [address], [place] [address] Jun, [facility] [address] [id number] [address] [place] [address], [place] [address] May, [facility] [address] [id number] [address] [place] [address], [place] [address] May, [facility] [address] [id number] [address] [place] [address], [place] [id number] May, [facility] [address] [id number] [address] [place] [address], [place] [address] May, [facility] [address] [id number] [address] [place] [address], [place] [phone] May, [facility] [address] [id number] [address] [place] [address], [place] [id number] Mar, [facility] [address] [id number] [address] [place] [address], [place] [address] Mar, [facility] [address] [id number] [address] [place] [address], [place] [id number] Mar, [facility] [address] [id number] [address] [place] [address], [place] [address] Mar, [facility] [address] [id number] [address] [place] [address], [place] [address] Mar, [facility] [address] [id number] [address] [place] [address], [place] [address] Mar, [facility] [address] [id number] [address] [place] [address], [place] [address] Mar, [facility] [address] [id number] [address] [place] [address], [place] [address] Feb, [facility] [address] [id number] [address] [place] [address], [place] [id number] Feb, [facility] [address] [id number] [address] [place] [address], [place] [phone] Jan, [facility] [address] [id number] [address] [place] [address], [place] [address] Jan, [facility] [address] [id number] [address] [place] [address], [place] [phone] Jan, [facility] [address] [id number] [address] [place] [address], [place] [address] Jan, [facility] [address] [id number] [address] [place] [address], [place] [address] Nov, [facility] [address] [id number] [address] [place] [address], [place] [address] Nov, [facility] [address] [id number] [address] [place] [address], [place] [address] Sep, [facility] [address] [id number] [address] [place] [address], [place] [address] Aug, [facility] [address] [id number] [facility] [place] [address] 05 Aug, 2012 [facility] [address] [id number] [address] [place] [address], [place] [address] Aug, [facility] [address] [id number] [address] [place] [address], [place] [phone] July, [facility] [address] [id number] [address] [place] [address], [place] [address] July, [facility] [address] [id number] [address] [place] [address], [place] [phone] Jun, [facility] [address] [id number] [address] [place] [address], [place] [address] 28 May, 2012 [facility] [address] [id number] [address] [place] [address], [place] [id number] 18 May, 2012 [facility] [address] [id number] [address] [place] [address], [place] [address] 14 May, 2012 [facility] [address] [id number] [address] [place] [address], [place] [address] May, [facility] [address] [id number] [address] [place] [address], [place] [address] 12 May, 2012 [facility] [address] [id number] [address] [place] [address], [place] [phone] May, [facility] [address] [id number] [address] [place] [address], [place] [address] 06 May, 2012 [facility] [address] [id number] [address] [place] [address], [place] [address] 06 May, 2012 [facility] [address] [id number] [address] [place] [address], [place] [address] 06 May, 2012 [facility] [address] [id number] [address] [place] [address], [place] [address] 06 May, 2012 [facility] [address] [id number] [address] [place] [address], [place] [address] 05 May, 2012 [facility] [address] [id number] [address] [place] [address], [place] [address] Apr, [facility] [address] [id number] [address] [place] [address], [place] [address] Mar, [facility] [address] [id number] [address] [place] [address], [place] [address] Mar, [facility] [address] [id number] [address] [place] [address], [place] [address] Jan, [facility] [address] [id number] [address] [place] [address], [place] [address] Jan, [facility] [address] [id number] [id number] Oct, [facility] [address] [id number] [address] [place] [address], [place] [address] Sep, [facility] [address] [id number] [address] [place] [address], [place] [address] Sep, [facility] [address] [id number] [address] [place] [address], [place] [address] Aug, [facility] [address] [id number] [address] [place] [address], [place] [phone] Aug, [facility] [address] [id number] [address] [place] [address], [place] [address] Aug, [facility] [address] [id number] [address] [place] [address], [place] [address] Aug, [facility] [address] [id number] [address] [place] [address], [place] [address] Aug, [facility] [address] [id number] [address] [place] [address], [place] [id number] Jun, [facility] [address] [id number] [address] [place] [address], [place] [address] May, [facility] [address] [id number] [address] [place] [address] [address] Mar, [facility] [address] [id number] [address] [place] [address], [place] [address] Mar, [facility] [address] [id number] [address] [place] [address], [place] [address] Feb, [facility] [address] [id number] [address] [place] [address], [place] [id number] Jan, [facility] [address] [id number] [address] [place] [address], [place] [address] Jan, [facility] [address] [id number] [address] [place] [address], [place] [address] Jan, [facility] [address] [id number] [address] [place] [address], [place] [address] Jan, [facility] [address] [id number] [address] [place] [address], [place] [address] Dec, [facility] [address] [id number] [address] [place] [address], [place] [address] Dec, [facility] [address] [id number] [address] [place] [address], [place] [address] Dec, [facility] [address] [id number] [address] [place] [address], [place] [address] Dec, [facility] [address] [id number] [address] [place] [address], [place] [id number] Feb, [facility] [address] [id number] [address] [place] [phone] Jan, [facility] [address] [id number] [address] [place] [address], [place] [address] Jan, [facility] [address] [id number] [address] [place] [address], [place] [address] July, [facility] [address] [id number] [address] [place] [address], [place] [address] July, [facility] [address] [id number] [address] [place] [id number] 13 Jul, 2009 [facility] [address] [id number] [address] [place] [id number] July, [facility] [address] [facility] [id number] [address] [place] [id number] July, [facility] [address] [facility] [id number] [address] [place] [id number] Feb, [facility] [address] [facility] [id number] [address] [place] [id number] Feb, [facility] [address] [facility] [id number] [address] [place] [id number] Jan, [facility] [address] [facility] [id number] [address] [place] [id number] Jan, IMMUNIZATIONS No Known Immunizations SOCIAL HISTORY [...] 2014 Surgical History tonsillectomy Surgical History tubal gugejcuy-Ktthux-kz dev eloped respiratory issues and heart failure following the surgery 01/2011 Surgical History echo-07/2009, 10/21/09, 04/15, 10/04/10 Hospitalization History PPD #4 for non-ischemic card iomyopathy, respiratory distress due to pulmonary edema, ARF 07/2009 Hospitalization History surgeries
--- OUTSIDE RECORDS SUMMARY | 2019-10-21 21:41 | XMS REPORT ---
Author Author Renate VILLA [facility] Address [address] [place] [address] Care Team Providers Care Tests Superintendent Name Role Phone ALLENJEAN-CLAUDEA Unavailable PROBLEMS Type Condition ICD9-CM Code [id number] Code Onset Dates Condition S tatus SNOMED Code Problem Seasonal allergic rhinitis due to pollen J30.1 Active 66130981 Problem Heart failure, unspecified H F chronicity, unspecified heart failure type I50.9 Active 55202249 Problem Asthma J45.909 Active [id number] ALLERGIES No Information ENCOUNTERS Encounter Location Date Diagnosis [facility] [address] [facility] [id number] [address] [place] [address] July, Dental abscess K04.7 [facility] [address] [id number] [address] [place] [phone] Jun, Acute left-sided low back pa in without sciatica M54.5 [facility] [address] [facility] [id number] [address] [place] [address] May, Sore throat J02.9 [facility] [address] [facility] [id number] [address] [place] [address] Nov, [facility] [address] [id number] [address] [place] [id number] Aug, [facility] [address] [id number] [address] [place] [id number] July, [facility] [address] [facility] [id number] [address] [place] [address] July, [facility] [address] [facility] [id number] [address] [place] [address] May, [facility] [address] [address] May, Morbid obesity E66.01 and Lo calized edema R60.0 [place] [address] [id number] 14 Apr, 2018 [facility] [address] [id number] Mar, [facility] [address] [address] Mar, Heart failure, unspecified H F chronicity, unspecified heart failure type I50.9 [facility] [address] [address] Apr, Seasonal allergic rhinitis d ue to pollen J30.1 and Asthma J45.909 [facility] WALK [place] [address] [address] Jan, Seasonal allergic rhinitis d ue to pollen J30.1 [facility] [address] [address] Dec, Acute upper respiratory infe ction, unspecified J06.9 [place] [address] [address] Dec, [facility] WALK IN [facility] [address] [address] July, Environmental allergies Z91. 09 [facility] [address] [address] Oct, Abscess 682.9 [place] [address] [address] Oct, Mood disorder 296.90 [place] [address] [address] Sep, Screen for STD (sexually tra nsmitted disease) V74.5 [place] [address] [address] [place] [address] [place] [phone] 15 Sep, 2014 [facility] [address] [id number] [address] [place] [phone] 13 Sep, 2014 Depression 311 [facility] [address] [id number] [address] [place] [address] 13 Sep, 2014 Major depressive disorder, r ecurrent episode, severe 296.33 and No condition on Jackson II V71.09 [facility] [address] [id number] [address] [place] [address] 10 Sep, 2014 [facility] [address] [id number] [address] [place] [address] 14 Jun, 2014 [facility] [address] [id number] [address] [place] [id number] 13 Jun, 2014 [facility] [address] [id number] [address] [place] [id number] 16 Nov, 2013 [facility] [address] [id number] [address] [place] [address] 16 Nov, 2013 [facility] [address] [id number] [address] [place] [id number] 15 Nov, 2013 [facility] [address] [id number] [address] [place] [id number] 15 Nov, 2013 [facility] [address] [id number] [address] [place] [phone] 12 Nov, 2013 [facility] [address] [id number] [address] [place] [phone] 12 Nov, 2013 [facility] [address] [id number] [address] [place] [phone] Oct, [facility] [address] [id number] [address] [place] [phone] Oct, [facility] [address] [id number] [address] [place] [phone] Aug, [facility] [address] [id number] [facility] [place] [address] Aug, [facility] [address] [id number] [facility] [place] [address] Aug, [facility] [address] [id number] [facility] [place] [address] Aug, [facility] [address] [id number] [address] [place] [address], [place] [address] July, [facility] [address] [id number] [address] [place] [address], [place] [address] July, [facility] [address] [id number] [address] [place] [address], [place] [address] July, [facility] [address] [id number] [address] [place] [address], [place] [address] July, [facility] [address] [id number] [address] [place] [address], [place] [address] Jun, [facility] [address] [id number] [address] [place] [address], [place] [address] Jun, [facility] [address] [id number] [address] [place] [address], [place] [address] May, [facility] [address] [id number] [address] [place] [address], [place] [address] May, [facility] [address] [id number] [address] [place] [address], [place] [address] May, [facility] [address] [id number] [address] [place] [address], [place] [address] May, [facility] [address] [id number] [address] [place] [address], [place] [address] May, [facility] [address] [id number] [address] [place] [address], [place] [address] Mar, [facility] [address] [id number] [address] [place] [address], [place] [address] Mar, [facility] [address] [id number] [address] [place] [address], [place] [address] Mar, [facility] [address] [id number] [address] [place] [address], [place] [address] Mar, [facility] [address] [id number] [address] [place] [address], [place] [address] Mar, [facility] [address] [id number] [address] [place] [address], [place] [address] Mar, [facility] [address] [id number] [address] [place] [address], [place] [address] Mar, [facility] [address] [id number] [address] [place] [address], [place] [address] Feb, [facility] [address] [id number] [address] [place] [address], [place] [address] Feb, [facility] [address] [id number] [address] [place] [address], [place] [address] Jan, [facility] [address] [id number] [address] [place] [address], [place] [address] Jan, [facility] [address] [id number] [address] [place] [address], [place] [address] Jan, [facility] [address] [id number] [address] [place] [address], [place] [address] Jan, [facility] [address] [id number] [address] [place] [address], [place] [address] Nov, [facility] [address] [id number] [address] [place] [address], [place] [address] Nov, [facility] [address] [id number] [address] [place] [address], [place] [address] Sep, [facility] [address] [id number] [address] [place] [address], [place] [address] Aug, [facility] [address] [id number] [facility] [place] [address] 05 Aug, 2012 [facility] [address] [id number] [address] [place] [address], [place] [address] Aug, [facility] [address] [id number] [address] [place] [address], [place] [address] July, [facility] [address] [id number] [address] [place] [address], [place] [address] July, [facility] [address] [id number] [address] [place] [address], [place] [address] Jun, [facility] [address] [id number] [address] [place] [address], [place] [address] 28 May, 2012 [facility] [address] [id number] [address] [place] [address], [place] [address] 18 May, 2012 [facility] [address] [id number] [address] [place] [address], [place] [address] 14 May, 2012 [facility] [address] [id number] [address] [place] [address], [place] [address] May, [facility] [address] [id number] [address] [place] [address], [place] [address] 12 May, 2012 [facility] [address] [id number] [address] [place] [address], [place] [address] May, [facility] [address] [id number] [address] [place] [address], [place] [address] 06 May, 2012 [facility] [address] [id number] [address] [place] [address], [place] [address] 06 May, 2012 [facility] [address] [id number] [address] [place] [address], [place] [address] 06 May, 2012 [facility] [address] [id number] [address] [place] [address], [place] [address] 06 May, 2012 [facility] [address] [id number] [address] [place] [address], [place] [address] 05 May, 2012 [facility] [address] [id number] [address] [place] [address], [place] [address] Apr, [facility] [address] [id number] [address] [place] [address], [place] [address] Mar, [facility] [address] [id number] [address] [place] [address], [place] [address] Mar, [facility] [address] [id number] [address] [place] [address], [place] [address] Jan, [facility] [address] [id number] [address] [place] [address], [place] [address] Jan, [facility] [address] [id number] [id number] Oct, [facility] [address] [id number] [address] [place] [address], [place] [address] Sep, [facility] [address] [id number] [address] [place] [address], [place] [address] Sep, [facility] [address] [id number] [address] [place] [address], [place] [address] Aug, [facility] [address] [id number] [address] [place] [address], [place] [address] Aug, [facility] [address] [id number] [address] [place] [address], [place] [address] Aug, [facility] [address] [id number] [address] [place] [address], [place] [address] Aug, [facility] [address] [id number] [address] [place] [address], [place] [address] Aug, [facility] [address] [id number] [address] [place] [address], [place] [address] Jun, [facility] [address] [id number] [address] [place] [address], [place] [address] May, [facility] [address] [id number] [address] [place] [address] [address] Mar, [facility] [address] [id number] [address] [place] [address], [place] [address] Mar, [facility] [address] [id number] [address] [place] [address], [place] [address] Feb, [facility] [address] [id number] [address] [place] [address], [place] [address] Jan, [facility] [address] [id number] [address] [place] [address], [place] [address] Jan, [facility] [address] [id number] [address] [place] [address], [place] [address] Jan, [facility] [address] [id number] [address] [place] [address], [place] [address] Jan, [facility] [address] [id number] [address] [place] [address], [place] [address] Dec, [facility] [address] [id number] [address] [place] [address], [place] [address] Dec, [facility] [address] [id number] [address] [place] [address], [place] [address] Dec, [facility] [address] [id number] [address] [place] [address], [place] [address] Dec, [facility] [address] [id number] [address] [place] [address], [place] [address] Feb, [facility] [address] [id number] [address] [place] [address] Jan, [facility] [address] [id number] [address] [place] [address], [place] [address] Jan, [facility] [address] [id number] [address] [place] [address], [place] [address] July, [facility] [address] [id number] [address] [place] [address], [place] [address] July, [facility] [address] [id number] [address] [place] [address] 13 Jul, 2009 [facility] [address] [id number] [address] [place] [address] July, [facility] [address] [id number] [address] [place] [address] July, [facility] [address] [facility] [id number] [address] [place] [address] Feb, [facility] [address] [facility] [id number] [address] [place] [address] Feb, [facility] [address] [facility] [id number] [address] [place] [address] Jan, [facility] [address] [facility] [id number] [address] [place] [address] 11 Jan, 2009 IMMUNIZATIONS Vaccine Route Administration Date Status influenza IIV3 (history) Unknown Jan 06, 2013 Adminis tered PRIVATE PPSV23 (PNEUMOVAX) Unknown Jan 06, 2013 Admin istered SOCIAL HISTORY Never Assessed REASON FOR VISIT PLAN OF CARE VITAL SIGNS Height 66 in 2013-01-06 Weight 277.85 lbs 2013-01-06 Temperature 97 degrees Fahrenheit 2013-01-06 Heart Rate 80 bpm 2013-01-06 Respiratory Rate 28 2013-01-06 Blood pressure systolic 118 mmHg 2013-01-06 Blood pressure diastolic 84 mmHg 2013-01-06 MEDICATIONS No Known Medications RESULTS No Results PROCEDURES Procedure Date Ordered Result Body Site PERSISTENT ASTHMA Jan 06, 2013 INSTRUCTIONS MEDICATIONS ADMINISTERED No Known Medications MEDICAL (GENERAL) HISTORY Type Description Date Medical History asthma-dx at age 11-12 Medical History hypertension-hx of pre-eclam psia with second , was induced at 35 weeks Medical History cardiomyopathy- (non-ischemic) (Erin) Medical History depression Medical History CHF Surgical History tonsillectomy Surgical History tubal 2014 Surgical History tonsillectomy Surgical History tubal psohagyi-Syzcrs-dv dev eloped respiratory issues and heart failure following the surgery 01/2011 Surgical History echo-07/2009, 10/21/09, 04/15, 10/04/10 Hospitalization History PPD #4 for non-ischemic card iomyopathy, respiratory distress due to pulmonary edema, ARF 07/2009 Hospitalization History surgeries
--- OUTSIDE RECORDS SUMMARY | 2019-10-21 21:41 | XMS REPORT ---
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 Role Phone ALLEN MING Unavailable PROBLEMS Type Condition ICD9-CM Code ZLS60-UL Code Onset Dates Condition S tatus SNOMED Code Problem Seasonal allergic rhinitis due to pollen J30.1 Active 20495044 Problem Heart failure, unspecified H F chronicity, unspecified heart failure type I50.9 Active 58051046 Problem Asthma J45.909 Active 860800642 ALLERGIES No Information ENCOUNTERS Encounter Location Date Diagnosis [facility] [address] [place] [id number] [address] [place] [address] Jun, Acute left-sided low back pa in without sciatica M54.5 [facility] [address] [facility] [id number] [address] [place] [address] May, Sore throat J02.9 [facility] [address] [facility] [id number] [address] [place] [address] Nov, [facility] [address] [place] [address] [id number] [address] [place] [address] Aug, [facility] [address] [facility] [id number] [address] [place] [address] July, [facility] [address] [id number] [address] [place] [address] July, [facility] [address] [id number] [address] [place] [address] May, [facility] [address] [id number] [address] [place] [address] May, Morbid obesity E66.01 and Lo calized edema R60.0 [facility] [address] [id number] [address] [place] [address] 14 Apr, 2018 [facility] [address] [address] Mar, [facility] [address] [address] Mar, Heart failure, unspecified H F chronicity, unspecified heart failure type I50.9 [facility] [address] [address] Apr, Seasonal allergic rhinitis d ue to pollen J30.1 and Asthma J45.909 [facility] [address] [address] Jan, Seasonal allergic rhinitis d ue to pollen J30.1 [facility] [place] [address] [address] Dec, Acute upper respiratory infe ction, unspecified J06.9 [place] [address] [address] Dec, [facility] [address] [address] July, Environmental allergies Z91. 09 [place] [address] [address] Oct, Abscess 682.9 [place] [address] [address] Oct, Mood disorder 296.90 [place] [address] [address] Sep, Screen for STD (sexually tra nsmitted disease) V74.5 [place] [address] [place] [id number] [address] [place] [address] Sep, [place] [address] [address] 13 Sep, 2014 Depression 311 [facility] [address] [id number] [address] [place] [address] 13 Sep, 2014 Major depressive disorder, r ecurrent episode, severe 296.33 and No condition on [place] II V71.09 [facility] [address] [id number] [address] [place] [address] 10 Sep, 2014 [facility] [address] [id number] [address] [place] [address] 14 Jun, 2014 [facility] [address] [id number] [address] [place] [address] Jun, [facility] [address] [id number] [address] [place] [address] 16 Nov, 2013 [facility] [address] [id number] [address] [place] [address] 16 Nov, 2013 [facility] [address] [id number] [address] [place] [address] 15 Nov, 2013 [facility] [address] [id number] [address] [place] [address] 15 Nov, 2013 [facility] [address] [id number] [address] [place] [address] 12 Nov, 2013 [facility] [address] [id number] [address] [place] [address] Nov, [facility] [address] [id number] [address] [place] [address] Oct, [facility] [address] [id number] [address] [place] [address] Oct, [facility] [address] [id number] [address] [place] [address] Aug, [facility] [address] [id number] [address] [place] [address] Aug, [facility] [address] [id number] [address] [place] [address], [place] [address] Aug, [facility] [address] [id number] [address] [place] [address], [place] [address] Aug, [facility] [address] [id number] [address] [place] [address], [place] [address] July, [facility] [address] [id number] [address] [place] [address], [place] [address] July, [facility] [address] [id number] [address] [place] [address], [place] [address] July, [facility] [address] [id number] [address] [place] [address], [place] [address] July, [facility] [address] [id number] [address] [place] [address], [place] [address] Jun, [facility] [address] [id number] [address] [place] [address], [place] [address] Jun, [facility] [address] [id number] [address] [place] [address], [place] [address] May, [facility] [address] [id number] [address] [place] [address], [place] [address] May, [facility] [address] [id number] [address] [place] [address], [place] [address] May, [facility] [address] [id number] [address] [place] [address], [place] [address] May, [facility] [address] [id number] [address] [place] [address], [place] [address] May, [facility] [address] [id number] [address] [place] [address], [place] [address] Mar, [facility] [address] [id number] [address] [place] [address], [place] [address] Mar, [facility] [address] [id number] [address] [place] [address], [place] [address] Mar, [facility] [address] [id number] [address] [place] [address], [place] [address] Mar, [facility] [address] [id number] [address] [place] [address], [place] [address] Mar, [facility] [address] [id number] [address] [place] [address], [place] [address] Mar, [facility] [address] [id number] [address] [place] [address], [place] [address] Mar, [facility] [address] [id number] [address] [place] [address], [place] [address] Feb, [facility] [address] [id number] [address] [place] [address], [place] [address] Feb, [facility] [address] [id number] [address] [place] [address], [place] [address] Jan, [facility] [address] [id number] [address] [place] [address], [place] [address] Jan, [facility] [address] [id number] [address] [place] [address], [place] [address] Jan, [facility] [address] [id number] [address] [place] [address], [place] [address] Jan, [facility] [address] [id number] [address] [place] [address], [place] [address] Nov, [facility] [address] [id number] [address] [place] [address], [place] [address] Nov, [facility] [address] [id number] [address] [place] [address], [place] [address] Sep, [facility] [address] [id number] [address] [place] [address], [place] [address] Aug, [facility] [address] [id number] [address] [place] [address], [place] [address] Aug, [facility] [address] [id number] [address] [place] [address], [place] [address] Aug, [facility] [address] [id number] [facility] [place] [address] July, [facility] [address] [id number] [address] [place] [address], [place] [address] July, [facility] [address] [id number] [address] [place] [address], [place] [address] Jun, [facility] [address] [id number] [address] [place] [address], [place] [address] May, [facility] [address] [id number] [address] [place] [address], [place] [address] 18 May, 2012 [facility] [address] [id number] [address] [place] [address], [place] [address] 14 May, 2012 [facility] [address] [id number] [address] [place] [address], [place] [address] May, [facility] [address] [id number] [address] [place] [address], [place] [address] May, [facility] [address] [id number] [address] [place] [address], [place] [address] May, [facility] [address] [id number] [address] [place] [address], [place] [address] May, [facility] [address] [id number] [address] [place] [address], [place] [address] May, [facility] [address] [id number] [address] [place] [address], [place] [address] May, [facility] [address] [id number] [address] [place] [address], [place] [address] May, [facility] [address] [id number] [address] [place] [address], [place] [address] 05 May, 2012 [facility] [address] [id number] [address] [place] [address], [place] [address] 06 Apr, 2012 [facility] [address] [id number] [address] [place] [address], [place] [address] Mar, [facility] [address] [id number] [address] [place] [address], [place] [address] Mar, [facility] [address] [id number] [address] [place] [address], [place] [address] Jan, [facility] [address] [id number] [address] [place] [address], [place] [address] Jan, [facility] [address] [id number] [id number] Oct, [facility] [address] [id number] [address] [place] [address], [place] [address] Sep, [facility] [address] [id number] [address] [place] [address], [place] [address] Sep, [facility] [address] [id number] [address] [place] [address], [place] [address] Aug, [facility] [address] [id number] [address] [place] [address], [place] [address] Aug, [facility] [address] [id number] [address] [place] [address], [place] [address] Aug, [facility] [address] [id number] [address] [place] [address], [place] [address] Aug, [facility] [address] [id number] [address] [place] [address], [place] [address] Aug, [facility] [address] [id number] [address] [place] [address], [place] [address] Jun, [facility] [address] [id number] [address] [place] [address], [place] [address] May, [facility] [address] [id number] [address] [place] [address], [place] [address] Mar, [facility] [address] [id number] [address] [place] [address], [place] [address] Mar, [facility] [address] [id number] [address] [place] [address], [place] [address] Feb, [facility] [address] [id number] [address] [place] [address], [place] [address] Jan, [facility] [address] [id number] [address] [place] [address], [place] [address] Jan, [facility] [address] [id number] [address] [place] [address], [place] [address] Jan, [facility] [address] [id number] [address] [place] [address], [place] [address] Jan, [facility] [address] [id number] [address] [place] [address], [place] [address] Dec, [facility] [address] [id number] [address] [place] [address], [place] [address] Dec, [facility] [address] [id number] [address] [place] [address], [place] [address] Dec, [facility] [address] [id number] [address] [place] [address], [place] [address] Dec, [facility] [address] [id number] [address] [place] [address], [place] [address] Feb, [facility] [address] [id number] [address] [place] [address], [place] [address] Jan, [facility] [address] [id number] [address] [place] [address], [place] [address] Jan, [facility] [address] [id number] [address] [place] [address], [place] [address] July, [facility] [address] [id number] [address] [place] [address], [place] [address] July, [facility] [address] [id number] [address] [place] [address], [place] [address] July, [facility] [address] [id number] [address] [place] [address] July, [facility] [address] [facility] [id number] [address] [place] [address] July, [facility] [address] [facility] [id number] [address] [place] [address] Feb, [facility] [address] [facility] [id number] [address] [place] [address] Feb, [facility] [address] [facility] [id number] [address] [place] [address] Jan, [facility] [address] [facility] [id number] [address] [place] [address] Jan, IMMUNIZATIONS No Known Immunizations SOCIAL HISTORY Never Assessed REASON FOR VISIT PLAN OF CARE VITAL SIGNS Height 65.5 in 2011-08-21 Weight 271 lbs 2011-08-21 Temperature 96.6 degrees Fahrenheit 2011-08-21 Heart Rate 80 bpm 2011-08-21 Respiratory Rate 18 2011-08-21 Blood pressure systolic 128 mmHg 2011-08-21 Blood pressure diastolic 100 mmHg 2011-08-21 MEDICATIONS No Known Medications RESULTS No Results PROCEDURES Procedure Date Ordered Result Body Site COMPLETE CBC W/AUTO DIFF WBC August 21, 2011 ASSAY THYROID STIM HORMONE August 21, 2011 NATRIURETIC PEPTIDE August 21, 2011 LIPID PANEL August 21, 2011 COMPREHEN METABOLIC PANEL August 21, 2011 ASSAY OF VITAMIN D August 21, 2011 VENIPUNCT, ROUTINE* August 21, 2011 INSTRUCTIONS MEDICATIONS ADMINISTERED No Known Medications MEDICAL (GENERAL) HISTORY Type Description Date Medical History asthma-dx at age 11-12 Medical History hypertension-hx of pre-eclam psia with second , was induced at 35 weeks Medical History cardiomyopathy- (non-ischemic) (Erin) Medical History depression Medical History CHF Surgical History tonsillectomy Surgical History tubal 2014 Surgical History tonsillectomy Surgical History tubal nklnfvhn-Ztngpw-xr dev eloped respiratory issues and heart failure following the surgery 01/2011 Surgical History echo-07/2009, 10/21/09, 04/15, 10/04/10 Hospitalization History PPD #4 for non-ischemic card iomyopathy, respiratory distress due to pulmonary edema, ARF 07/2009 Hospitalization History surgeries
--- OUTSIDE RECORDS SUMMARY | 2019-10-21 21:41 | XMS REPORT ---
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 Phone ALLEN MING Unavailable PROBLEMS Type Condition ICD9-CM Code JOP57-EU Code Onset Dates Condition S tatus SNOMED Code Problem Seasonal allergic rhinitis due to pollen J30.1 Active 64763821 Problem Heart failure, unspecified H F chronicity, unspecified heart failure type I50.9 Active 86354108 Problem Asthma J45.909 Active [id number] ALLERGIES No Information ENCOUNTERS Encounter Location Date Diagnosis [facility] [address] [place] [id number] [address] [place] [address] Jun, Acute left-sided low back pa in without sciatica M54.5 [facility] [address] [facility] [id number] [address] [place] [address] May, Sore throat J02.9 [facility] [address] [facility] [id number] [address] [place] [address] Nov, [facility] [address] [id number] [address] [place] [address] Aug, [facility] [address] [facility] [id number] [address] [place] [address] July, [facility] [address] [id number] [address] [place] [address] July, [facility] [address] [id number] [address] [place] [address] May, [facility] [address] [id number] [address] [place] [address] May, Morbid obesity E66.01 and Lo calized edema R60.0 [facility] [id number] [place] [address] 14 Apr, 2018 [facility] [address] [address] Mar, [facility] [address] [address] Mar, Heart failure, unspecified H F chronicity, unspecified heart failure type I50.9 [facility] [address] [address] Apr, Seasonal allergic rhinitis d ue to pollen J30.1 and Asthma J45.909 [facility] [address] [address] Jan, Seasonal allergic rhinitis d ue to pollen J30.1 [facility] [place] [address] [address] Dec, Acute upper respiratory infe ction, unspecified J06.9 [place] [address] [address] Dec, [facility] [address] [address] July, Environmental allergies Z91. 09 [place] [address] [address] Oct, Abscess 682.9 [place] [address] [address] Oct, Mood disorder 296.90 [place] [address] [address] Sep, Screen for STD (sexually tra nsmitted disease) V74.5 [place] [address] [place] [id number] [place] [address] Sep, [place] [address] [address] 13 Sep, 2014 Depression 311 [facility] [address] [id number] [address] [place] [address] 13 Sep, 2014 Major depressive disorder, r ecurrent episode, severe 296.33 and No condition on [place] II V71.09 [facility] [address] [id number] [address] [place] [address] 10 Sep, 2014 [facility] [address] [id number] [address] [place] [address] 14 Jun, 2014 [facility] [address] [id number] [address] [place] [address] Jun, [facility] [address] [id number] [address] [place] [address] 16 Nov, 2013 [facility] [address] [id number] [address] [place] [address] 16 Nov, 2013 [facility] [address] [id number] [address] [place] [id number] 15 Nov, 2013 [facility] [address] [id number] [address] [place] [id number] 15 Nov, 2013 [facility] [address] [id number] [address] [place] [address] 12 Nov, 2013 [facility] [address] [id number] [address] [place] [address] Nov, [facility] [address] [id number] [address] [place] [address] Oct, [facility] [address] [id number] [address] [place] [address] Oct, [facility] [address] [id number] [address] [place] [address] Aug, [facility] [address] [id number] [address] [place] [address] Aug, [facility] [address] [id number] [address] [place] [address], [place] [address] Aug, [facility] [address] [id number] [address] [place] [address], [place] [address] Aug, [facility] [address] [id number] [address] [place] [address], [place] [address] July, [facility] [address] [id number] [address] [place] [address], [place] [address] July, [facility] [address] [id number] [address] [place] [address], [place] [address] July, [facility] [address] [id number] [address] [place] [address], [place] [address] July, [facility] [address] [id number] [address] [place] [address], [place] [address] Jun, [facility] [address] [id number] [address] [place] [address], [place] [address] Jun, [facility] [address] [id number] [address] [place] [address], [place] [address] May, [facility] [address] [id number] [address] [place] [address], [place] [address] May, [facility] [address] [id number] [address] [place] [address], [place] [address] May, [facility] [address] [id number] [address] [place] [address], [place] [address] May, [facility] [address] [id number] [address] [place] [address], [place] [address] May, [facility] [address] [id number] [address] [place] [address], [place] [address] Mar, [facility] [address] [id number] [address] [place] [address], [place] [address] Mar, [facility] [address] [id number] [address] [place] [address], [place] [address] Mar, [facility] [address] [id number] [address] [place] [address], [place] [address] Mar, [facility] [address] [id number] [address] [place] [address], [place] [address] Mar, [facility] [address] [id number] [address] [place] [address], [place] [address] Mar, [facility] [address] [id number] [address] [place] [address], [place] [address] Mar, [facility] [address] [id number] [address] [place] [address], [place] [address] Feb, [facility] [address] [id number] [address] [place] [address], [place] [address] Feb, [facility] [address] [id number] [address] [place] [address], [place] [address] Jan, [facility] [address] [id number] [address] [place] [address], [place] [address] Jan, [facility] [address] [id number] [address] [place] [address], [place] [address] Jan, [facility] [address] [id number] [address] [place] [address], [place] [address] Jan, [facility] [address] [id number] [address] [place] [address], [place] [address] Nov, [facility] [address] [id number] [address] [place] [address], [place] [address] Nov, [facility] [address] [id number] [address] [place] [address], [place] [address] Sep, [facility] [address] [id number] [address] [place] [address], [place] [address] Aug, [facility] [address] [id number] [address] [place] [address], [place] [address] Aug, [facility] [address] [id number] [address] [place] [address], [place] [address] Aug, [facility] [address] [id number] [facility] [place] [address] July, [facility] [address] [id number] [address] [place] [address], [place] [address] July, [facility] [address] [id number] [address] [place] [address], [place] [address] Jun, [facility] [address] [id number] [address] [place] [address], [place] [address] May, [facility] [address] [id number] [address] [place] [address], [place] [address] 18 May, 2012 [facility] [address] [id number] [address] [place] [address], [place] [address] 14 May, 2012 [facility] [address] [id number] [address] [place] [address], [place] [address] May, [facility] [address] [id number] [address] [place] [address], [place] [address] May, [facility] [address] [id number] [address] [place] [address], [place] [address] May, [facility] [address] [id number] [address] [place] [address], [place] [address] May, [facility] [address] [id number] [address] [place] [address], [place] [address] May, [facility] [address] [id number] [address] [place] [address], [place] [address] May, [facility] [address] [id number] [address] [place] [address], [place] [address] May, [facility] [address] [id number] [address] [place] [address], [place] [address] 05 May, 2012 [facility] [address] [id number] [address] [place] [address], [place] [address] 06 Apr, 2012 [facility] [address] [id number] [address] [place] [address], [place] [address] Mar, [facility] [address] [id number] [address] [place] [address], [place] [address] Mar, [facility] [address] [id number] [address] [place] [address], [place] [address] Jan, [facility] [address] [id number] [address] [place] [address], [place] [address] Jan, [facility] [address] [id number] [id number] Oct, [facility] [address] [id number] [address] [place] [address], [place] [address] Sep, [facility] [address] [id number] [address] [place] [address], [place] [address] Sep, [facility] [address] [id number] [address] [place] [address], [place] [address] Aug, [facility] [address] [id number] [address] [place] [address], [place] [address] Aug, [facility] [address] [id number] [address] [place] [address], [place] [address] Aug, [facility] [address] [id number] [address] [place] [address], [place] [address] Aug, [facility] [address] [id number] [address] [place] [address], [place] [address] Aug, [facility] [address] [id number] [address] [place] [address], [place] [address] Jun, [facility] [address] [id number] [address] [place] [address], [place] [address] May, [facility] [address] [id number] [address] [place] [address], [place] [address] Mar, [facility] [address] [id number] [address] [place] [address], [place] [address] Mar, [facility] [address] [id number] [address] [place] [address], [place] [address] Feb, [facility] [address] [id number] [address] [place] [address], [place] [address] Jan, [facility] [address] [id number] [address] [place] [address], [place] [address] Jan, [facility] [address] [id number] [address] [place] [address], [place] [address] Jan, [facility] [address] [id number] [address] [place] [address], [place] [address] Jan, [facility] [address] [id number] [address] [place] [address], [place] [address] Dec, [facility] [address] [id number] [address] [place] [address], [place] [address] Dec, [facility] [address] [id number] [address] [place] [address], [place] [address] Dec, [facility] [address] [id number] [address] [place] [address], [place] [address] Dec, [facility] [address] [id number] [address] [place] [address], [place] [address] Feb, [facility] [address] [id number] [address] [place] [address], [place] [address] Jan, [facility] [address] [id number] [address] [place] [address], [place] [address] Jan, [facility] [address] [id number] [address] [place] [address], [place] [address] July, [facility] [address] [id number] [address] [place] [address], [place] [address] July, [facility] [address] [id number] [address] [place] [address], [place] [address] July, [facility] [address] [id number] [address] [place] [address] July, [facility] [address] [facility] [id number] [address] [place] [address] July, [facility] [address] [facility] [id number] [address] [place] [address] Feb, [facility] [address] [facility] [id number] [address] [place] [address] Feb, [facility] [address] [facility] [id number] [address] [place] [address] Jan, [facility] [address] [facility] [id number] [address] [place] [address] Jan, IMMUNIZATIONS No Known Immunizations SOCIAL HISTORY [...] 2014 Surgical History tonsillectomy Surgical History tubal dxvfvonq-Sqrgxn-cr dev eloped respiratory issues and heart failure following the surgery 01/2011 Surgical History echo-07/2009, 10/21/09, 04/15, 10/04/10 Hospitalization History PPD #4 for non-ischemic card iomyopathy, respiratory distress due to pulmonary edema, ARF 07/2009 Hospitalization History surgeries
--- OUTSIDE RECORDS SUMMARY | 2019-10-21 21:41 | XMS REPORT ---
Author Author Renate VILLA [facility] Address [address] [place] [address] Care Team Providers Care Cafeteria Attendant Name Role Phone ALLEN MING Unavailable PROBLEMS Type Condition ICD9-CM Code [id number] Code Onset Dates Condition S tatus SNOMED Code Problem Seasonal allergic rhinitis due to pollen J30.1 Active 70082656 Problem Heart failure, unspecified H F chronicity, unspecified heart failure type I50.9 Active 77298430 Problem Asthma J45.909 Active [id number] ALLERGIES No Information ENCOUNTERS Encounter Location Date Diagnosis [facility] [address] [id number] [address] [place] [address] Jun, Acute left-sided low back pa in without sciatica M54.5 [facility] [address] [facility] [place] [id number] [address] [place] [address] May, Sore throat J02.9 [facility] [address] [facility] [place] [id number] [address] [place] [phone] Nov, [facility] [address] [place] [id number] [address] [place] [address] Aug, [facility] [address] [facility] [place] [id number] [address] [place] [address] July, [facility] [address] [id number] [address] [place] [address] July, [facility] [address] [id number] [address] [place] [address] May, [facility] [address] [id number] [address] [place] [address] May, Morbid obesity E66.01 and Lo calized edema R60.0 [facility] [address] [id number] [address] [place] [address] 14 Apr, 2018 [facility] [address] [address] Mar, [facility] [address] [address] Mar, Heart failure, unspecified H F chronicity, unspecified heart failure type I50.9 [facility] [address] [address] Apr, Seasonal allergic rhinitis d ue to pollen J30.1 and Asthma J45.909 [facility]ALK IN [facility] [address] [address] Jan, Seasonal allergic rhinitis d ue to pollen J30.1 [facility] [place] [address] [address] Dec, Acute upper respiratory infe ction, unspecified J06.9 [place] [address] [address] Dec, [facility] WALK IN [facility] [address] [address] July, Environmental allergies Z91. 09 [place] [address] [address] Oct, Abscess 682.9 [place] [address] [address] Oct, Mood disorder 296.90 [place] [address] [address] Sep, Screen for STD (sexually tra nsmitted disease) V74.5 [place] [address] [id number] [address] [place] [address] Sep, [place] [address] [address] 13 Sep, 2014 Depression 311 [facility] [address] [id number] [address] [place] [address] 13 Sep, 2014 Major depressive disorder, r ecurrent episode, severe 296.33 and No condition on [place] II V71.09 [facility] [address] [id number] [address] [place] [phone] 10 Sep, 2014 [facility] [address] [id number] [address] [place] [id number] 14 Jun, 2014 [facility] [address] [id number] [address] [place] [phone] Jun, [facility] [address] [id number] [address] [place] [phone] 16 Nov, 2013 [facility] [address] [id number] [address] [place] [phone] 16 Nov, 2013 [facility] [address] [id number] [address] [place] [phone] 15 Nov, 2013 [facility] [address] [id number] [address] [place] [phone] 15 Nov, 2013 [facility] [address] [id number] [address] [place] [id number] 12 Nov, 2013 [facility] [address] [id number] [address] [place] [phone] Nov, [facility] [address] [id number] [address] [place] [address] Oct, [facility] [address] [id number] [address] [place] [phone] Oct, [facility] [address] [id number] [address] [place] [phone] Aug, [facility] [address] [id number] [address] [place] [phone] Aug, [facility] [address] [id number] [address] [place] [address], [place] [address] Aug, [facility] [address] [id number] [address] [place] [address], [place] [address] Aug, [facility] [address] [id number] [address] [place] [address], [place] [address] July, [facility] [address] [id number] [address] [place] [address], [place] [address] July, [facility] [address] [id number] [address] [place] [address], [place] [address] July, [facility] [address] [id number] [address] [place] [address], [place] [address] July, [facility] [address] [id number] [address] [place] [address], [place] [address] Jun, [facility] [address] [id number] [address] [place] [address], [place] [address] Jun, [facility] [address] [id number] [address] [place] [address], [place] [address] May, [facility] [address] [id number] [address] [place] [address], [place] [address] May, [facility] [address] [id number] [address] [place] [address], [place] [address] May, [facility] [address] [id number] [address] [place] [address], [place] [address] May, [facility] [address] [id number] [address] [place] [address], [place] [address] May, [facility] [address] [id number] [address] [place] [address], [place] [address] Mar, [facility] [address] [id number] [address] [place] [address], [place] [address] Mar, [facility] [address] [id number] [address] [place] [address], [place] [address] Mar, [facility] [address] [id number] [address] [place] [address], [place] [address] Mar, [facility] [address] [id number] [address] [place] [address], [place] [address] Mar, [facility] [address] [id number] [address] [place] [address], [place] [address] Mar, [facility] [address] [id number] [address] [place] [address], [place] [address] Mar, [facility] [address] [id number] [address] [place] [address], [place] [address] Feb, [facility] [address] [id number] [address] [place] [address], [place] [address] Feb, [facility] [address] [id number] [address] [place] [address], [place] [address] Jan, [facility] [address] [id number] [address] [place] [address], [place] [address] Jan, [facility] [address] [id number] [address] [place] [address], [place] [address] Jan, [facility] [address] [id number] [address] [place] [address], [place] [address] Jan, [facility] [address] [id number] [address] [place] [address], [place] [address] Nov, [facility] [address] [id number] [address] [place] [address], [place] [address] Nov, [facility] [address] [id number] [address] [place] [address], [place] [address] Sep, [facility] [address] [id number] [address] [place] [address], [place] [address] Aug, [facility] [address] [id number] [address] [place] [address], [place] [address] Aug, [facility] [address] [id number] [address] [place] [address], [place] [address] Aug, [facility] [address] [id number] [facility] [place] [address] July, [facility] [address] [id number] [address] [place] [address], [place] [address] July, [facility] [address] [id number] [address] [place] [address], [place] [address] Jun, [facility] [address] [id number] [address] [place] [address], [place] [address] May, [facility] [address] [id number] [address] [place] [address], [place] [address] 18 May, 2012 [facility] [address] [id number] [address] [place] [address], [place] [address] 14 May, 2012 [facility] [address] [id number] [address] [place] [address], [place] [address] May, [facility] [address] [id number] [address] [place] [address], [place] [address] May, [facility] [address] [id number] [address] [place] [address], [place] [address] May, [facility] [address] [id number] [address] [place] [address], [place] [address] May, [facility] [address] [id number] [address] [place] [address], [place] [address] May, [facility] [address] [id number] [address] [place] [address], [place] [address] May, [facility] [address] [id number] [address] [place] [address], [place] [address] May, [facility] [address] [id number] [address] [place] [address], [place] [address] 05 May, 2012 [facility] [address] [id number] [address] [place] [address], [place] [address] 06 Apr, 2012 [facility] [address] [id number] [address] [place] [address], [place] [address] Mar, [facility] [address] [id number] [address] [place] [address], [place] [address] Mar, [facility] [address] [id number] [address] [place] [address], [place] [address] Jan, [facility] [address] [id number] [address] [place] [address], [place] [address] Jan, [facility] [address] [id number] [id number] Oct, [facility] [address] [id number] [address] [place] [address], [place] [address] Sep, [facility] [address] [id number] [address] [place] [address], [place] [address] Sep, [facility] [address] [id number] [address] [place] [address], [place] [address] Aug, [facility] [address] [id number] [address] [place] [address], [place] [address] Aug, [facility] [address] [id number] [address] [place] [address], [place] [address] Aug, [facility] [address] [id number] [address] [place] [address], [place] [address] Aug, [facility] [address] [id number] [address] [place] [address], [place] [address] Aug, [facility] [address] [id number] [address] [place] [address], [place] [address] Jun, [facility] [address] [id number] [address] [place] [address], [place] [address] May, [facility] [address] [id number] [address] [place] [address], [place] [address] Mar, [facility] [address] [id number] [address] [place] [address], [place] [address] Mar, [facility] [address] [id number] [address] [place] [address], [place] [address] Feb, [facility] [address] [id number] [address] [place] [address], [place] [address] Jan, [facility] [address] [id number] [address] [place] [address], [place] [address] Jan, [facility] [address] [id number] [address] [place] [address], [place] [address] Jan, [facility] [address] [id number] [address] [place] [address], [place] [address] Jan, [facility] [address] [id number] [address] [place] [address], [place] [address] Dec, [facility] [address] [id number] [address] [place] [address], [place] [address] Dec, [facility] [address] [id number] [address] [place] [address], [place] [address] Dec, [facility] [address] [id number] [address] [place] [address], [place] [address] Dec, [facility] [address] [id number] [address] [place] [address], [place] [address] Feb, [facility] [address] [id number] [address] [place] [address], [place] [address] Jan, [facility] [address] [id number] [address] [place] [address], [place] [address] Jan, [facility] [address] [id number] [address] [place] [address], [place] [address] July, [facility] [address] [id number] [address] [place] [address], [place] [address] July, [facility] [address] [id number] [address] [place] [address], [place] [address] July, [facility] [address] [id number] [address] [place] [address] July, [facility] [address] [facility] [place] [id number] [address] [place] [address] July, [facility] [address] [facility] [place] [id number] [address] [place] [address] Feb, [facility] [address] [facility] [place] [id number] [address] [place] [address] Feb, [facility] [address] [facility] [place] [id number] [address] [place] [address] Jan, [facility] [address] [facility] [place] [id number] [address] [place] [address] Jan, IMMUNIZATIONS No Known Immunizations SOCIAL HISTORY [...] 2014 Surgical History tonsillectomy Surgical History tubal [id number]-[id number]-fn dev eloped respiratory issues and heart failure following the surgery 01/2011 Surgical History echo-07/2009, 10/21/09, 04/15, 10/04/10 Hospitalization History PPD #4 for non-ischemic card iomyopathy, respiratory distress due to pulmonary edema, ARF 07/2009 Hospitalization History surgeries
--- OUTSIDE RECORDS SUMMARY | 2019-10-21 21:41 | XMS REPORT ---
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 User Interface Designer Name Role Phone MING VILLA Unavailable PROBLEMS Type Condition ICD9-CM Code VIV37-EQ Code Onset Dates Condition S tatus SNOMED Code Problem Seasonal allergic rhinitis due to pollen J30.1 Active 17137593 Problem Heart failure, unspecified H F chronicity, unspecified heart failure type I50.9 Active 05630301 Problem Asthma J45.909 Active 408892293 ALLERGIES No Information ENCOUNTERS Encounter Location Date Diagnosis [facility] WALK IN [facility] [address] [facility] [id number] [address] [place] [address] May, Sore throat J02.9 [facility] [address] [id number] [address] [place] [address] Nov, [facility] [address] [facility] [id number] [address] [place] [address] Aug, [facility] [address] [id number] [address] [place] [address] July, [facility] [address] [facility] [id number] [address] [place] [address] July, [facility] [address] [id number] [address] [place] [address] May, [facility] [address] [facility] [id number] [address] [place] [address] May, Morbid obesity E66.01 and Lo calized edema R60.0 [facility] [address] [id number] [address] [place] [address] Apr, [facility] [address] [address] Mar, [facility] [address] [address] Mar, Heart failure, unspecified H F chronicity, unspecified heart failure type I50.9 [facility] [address] [address] Apr, Seasonal allergic rhinitis d ue to pollen J30.1 and Asthma J45.909 [facility] [address] [address] Jan, Seasonal allergic rhinitis d ue to pollen J30.1 [facility] WALK IN [facility] [address] [address] Dec, Acute upper respiratory infe ction, unspecified J06.9 [place] [address] [address] Dec, [facility] WALK IN [facility] [address] [address] July, Environmental allergies Z91. 09 [place] [address] [address] Oct, Abscess 682.9 [place] [address] [address] Oct, Mood disorder 296.90 [place] [address] [address] Sep, Screen for STD (sexually tra nsmitted disease) V74.5 [place] [address] [address] Sep, [place] [address] [address] Sep, Depression 311 [place] [address] [address] Sep, Major depressive disorder, r ecurrent episode, severe 296.33 and No condition on [place] II V71.09 [facility] [address] [id number] [address] [place] [address], [place] [address] 10 Sep, 2014 [facility] [address] [id number] [address] [place] [address], [place] [address] 14 Jun, 2014 [facility] [address] [id number] [address] [place] [address] 13 Jun, 2014 [facility] [address] [id number] [address] [place] [address], [place] [address] 16 Nov, 2013 [facility] [address] [id number] [address] [place] [address], [place] [address] 16 Nov, 2013 [facility] [address] [id number] [address] [place] [address] 15 Nov, 2013 [facility] [address] [id number] [address] [place] [address], [place] [address] 15 Nov, 2013 [facility] [address] [id number] [address] [place] [address] 12 Nov, 2013 [facility] [address] [id number] [address] [place] [address], [place] [address] Nov, [facility] [address] [id number] [address] [place] [address] Oct, [facility] [address] [id number] [address] [place] [address] Oct, [facility] [address] [id number] [address] [place] [address] Aug, [facility] [address] [id number] [address] [place] [address] Aug, [facility] [address] [id number] [address] [place] [address] Aug, [facility] [address] [id number] [address] [place] [address] Aug, [facility] [address] [id number] [address] [place] [address], [place] [address] July, [facility] [address] [id number] [address] [place] [address], [place] [address] July, [facility] [address] [id number] [address] [place] [address], [place] [address] July, [facility] [address] [id number] [address] [place] [address], [place] [address] July, [facility] [address] [id number] [address] [place] [address], [place] [address] Jun, [facility] [address] [id number] [address] [place] [address], [place] [address] Jun, [facility] [address] [id number] [address] [place] [address], [place] [address] May, [facility] [address] [id number] [address] [place] [address], [place] [address] May, [facility] [address] [id number] [address] [place] [address], [place] [address] May, [facility] [address] [id number] [address] [place] [address], [place] [address] May, [facility] [address] [id number] [address] [place] [address], [place] [address] May, [facility] [address] [id number] [address] [place] [address], [place] [address] Mar, [facility] [address] [id number] [address] [place] [address], [place] [address] Mar, [facility] [address] [id number] [address] [place] [address], [place] [address] Mar, [facility] [address] [id number] [address] [place] [address], [place] [address] Mar, [facility] [address] [id number] [address] [place] [address], [place] [address] Mar, [facility] [address] [id number] [address] [place] [address], [place] [address] Mar, [facility] [address] [id number] [address] [place] [address], [place] [address] Mar, [facility] [address] [id number] [address] [place] [address], [place] [address] Feb, [facility] [address] [id number] [address] [place] [address], [place] [address] Feb, [facility] [address] [id number] [address] [place] [address], [place] [address] Jan, [facility] [address] [id number] [address] [place] [address], [place] [address] Jan, [facility] [address] [id number] [address] [place] [address], [place] [address] Jan, [facility] [address] [id number] [address] [place] [address], [place] [address] Jan, [facility] [address] [id number] [address] [place] [address], [place] [address] Nov, [facility] [address] [id number] [address] [place] [address], [place] [address] Nov, [facility] [address] [id number] [address] [place] [address], [place] [address] Sep, [facility] [address] [id number] [address] [place] [address], [place] [address] Aug, [facility] [address] [id number] [address] [place] [address], [place] [address] Aug, [facility] [address] [id number] [address] [place] [address], [place] [address] Aug, [facility] [address] [id number] [address] [place] [address], [place] [address] July, [facility] [address] [id number] [facility] [place] [address] July, [facility] [address] [id number] [facility] [place] [address] 29 Jun, 2012 [facility] [address] [id number] [address] [place] [address], [place] [address] 28 May, 2012 [facility] [address] [id number] [address] [place] [address], [place] [address] 18 May, 2012 [facility] [address] [id number] [address] [place] [address], [place] [address] 14 May, 2012 [facility] [address] [id number] [address] [place] [address], [place] [address] 13 May, 2012 [facility] [address] [id number] [address] [place] [address], [place] [address] May, [facility] [address] [id number] [address] [place] [address], [place] [address] 11 May, 2012 [facility] [address] [id number] [address] [place] [address], [place] [address] May, [facility] [address] [id number] [address] [place] [address], [place] [address] 06 May, 2012 [facility] [address] [id number] [address] [place] [address], [place] [address] May, [facility] [address] [id number] [address] [place] [address], [place] [address] 06 May, 2012 [facility] [address] [id number] [address] [place] [address], [place] [address] 05 May, 2012 [facility] [address] [id number] [address] [place] [address], [place] [address] 06 Apr, 2012 [facility] [address] [id number] [address] [place] [address], [place] [address] 18 Mar, 2012 [facility] [address] [id number] [address] [place] [address], [place] [address] Mar, [facility] [address] [id number] [address] [place] [address], [place] [address] Jan, [facility] [address] [id number] [address] [place] [address], [place] [address] Jan, [facility] [address] [id number] [id number] Oct, [facility] [address] [id number] [address] [place] [address], [place] [address] Sep, [facility] [address] [id number] [address] [place] [address], [place] [address] Sep, [facility] [address] [id number] [address] [place] [address], [place] [address] Aug, [facility] [address] [id number] [address] [place] [address], [place] [address] Aug, [facility] [address] [id number] [address] [place] [address], [place] [address] Aug, [facility] [address] [id number] [address] [place] [address], [place] [address] Aug, [facility] [address] [id number] [address] [place] [address], [place] [address] Aug, [facility] [address] [id number] [address] [place] [address], [place] [address] Jun, [facility] [address] [id number] [address] [place] [address], [place] [address] May, [facility] [address] [id number] [address] [place] [address], [place] [address] Mar, [facility] [address] [id number] [address] [place] [address], [place] [address] Mar, [facility] [address] [id number] [address] [place] [address], [place] [address] Feb, [facility] [address] [id number] [address] [place] [address], [place] [address] Jan, [facility] [address] [id number] [address] [place] [address], [place] [address] Jan, [facility] [address] [id number] [address] [place] [address], [place] [address] Jan, [facility] [address] [id number] [address] [place] [address], [place] [address] Jan, [facility] [address] [id number] [address] [place] [address], [place] [address] Dec, [facility] [address] [id number] [address] [place] [address], [place] [address] Dec, [facility] [address] [id number] [address] [place] [address], [place] [address] Dec, [facility] [address] [id number] [address] [place] [address], [place] [address] Dec, [facility] [address] [id number] [address] [place] [address], [place] [address] Feb, [facility] [address] [id number] [address] [place] [address], [place] [address] Jan, [facility] [address] [id number] [address] [place] [address], [place] [address] Jan, [facility] [address] [id number] [address] [place] [address], [place] [address] July, [facility] [address] [id number] [address] [place] [address], [place] [address] July, [facility] [address] [id number] [address] [place] [address], [place] [address] July, [facility] [address] [id number] [address] [place] [address], [place] [address] July, [facility] [address] [id number] [address] [place] [address], [place] [address] July, [facility] [address] [facility] [id number] [address] [place] [address] Feb, [facility] [address] [facility] [id number] [address] [place] [address] Feb, [facility] [address] [facility] [id number] [address] [place] [address] Jan, [facility] [address] [facility] [id number] [address] [place] [address] Jan, IMMUNIZATIONS No Known Immunizations SOCIAL HISTORY [...] 2014 Surgical History tonsillectomy Surgical History tubal tiabmxbg-[id number] dev eloped respiratory issues and heart failure following the surgery 01/2011 Surgical History echo-07/2009, 10/21/09, 04/15, 10/04/10 Hospitalization History PPD #4 for non-ischemic card iomyopathy, respiratory distress due to pulmonary edema, ARF 07/2009 Hospitalization History surgeries
--- OUTSIDE RECORDS SUMMARY | 2019-10-21 21:42 | XMS REPORT ---
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 Name Role Phone ROSALIA Marcano Unavailable PROBLEMS Type Condition ICD9-CM Code [id number] Code Onset Dates Condition S tatus SNOMED Code Problem Nondependent tobacco use disorder 305.1 Active 716618104 Problem Seasonal allergic rhinitis due to pollen J30.1 Active 35769252 Problem Heart failure, unspecified H F chronicity, unspecified heart failure type I50.9 Active 38978128 Problem Obesity, unspecified 278.00 Active 861512131 Problem Other and unspecified hyperlipidemia 272.4 Active 84653534 Problem Asthma J45.909 Active 645242862 Problem Major depressive disorder, recurrent episode, severe 296.33 Active [id number] ALLERGIES No Information ENCOUNTERS Encounter Location Date Diagnosis [place] [address] [address] Nov, [place] [address] [address] Aug, [place] [address] [address] July, [place] [address] [address] July, [place] [address] [address] May, [place] [address] [address] May, Morbid obesity E66.01 and Localized jefferson a R60.0 [place] [address] [address] Apr, [place] [address] [address] Mar, [place] [address] [address] Mar, Heart failure, unspecified HF chronicity , unspecified heart failure type I50.9 [facility] [address] [place] [id number] [place] [address] Apr, Seasonal allergic rhinitis d ue to pollen J30.1 and Asthma J45.909 [facility] [address] [address] Jan, Seasonal allergic rhinitis d ue to pollen J30.1 [facility] [place] [address] [address] Dec, Acute upper respiratory infe ction, unspecified J06.9 [place] [address] [address] Dec, [facility] [place] [address] [address] July, Environmental allergies Z91. 09 [place] [address] [address] Oct, Abscess 682.9 [place] [address] [address] Oct, Mood disorder 296.90 [place] [address] [address] Sep, Screen for STD (sexually transmitted dis ease) V74.5 [place] [address] [address] Sep, [place] [address] [address] Sep, Depression 311 [place] [address] [address] Sep, Major depressive disorder, recurrent epi sode, severe 296.33 and No condition on Aimwell II V71.09 [facility] [address] [id number] [place] [address] 10 Sep, 2014 [facility] [address] [id number] [place] [address] 14 Jun, 2014 [facility] [address] [place] [id number] [place] [address] 13 Jun, 2014 [facility] [address] [id number] [place] [address] 16 Nov, 2013 [facility] [address] [id number] [place] [address] 16 Nov, 2013 [facility] [address] [place] [id number] [place] [address] 15 Nov, 2013 [facility] [address] [place] [id number] [place] [address] 15 Nov, 2013 [facility] [address] [id number] [place] [address] Nov, [facility] [address] [id number] [place] [address] Nov, [facility] [address] [place] [id number] [place] [address] Oct, [facility] [address] [place] [id number] [place] [address] Oct, [facility] [address] [place] [id number] [place] [address] Aug, [facility] [address] [id number] [place] [address] Aug, [facility] [address] [place] [id number] [place] [address] Aug, [facility] [address] [id number] [place] [address] Aug, [facility] [address] [place] [id number] [place] [address] July, [facility] [address] [id number] [place] [address] July, [facility] [address] [facility] [id number] [place] [address] July, [facility] [address] [id number] [place] [address] July, [facility] [address] [id number] [place] [address] Jun, [facility] [address] [id number] [place] [address] Jun, [facility] [address] [id number] [place] [address] May, [facility] [address] [id number] [place] [address] May, [facility] [address] [id number] [place] [address] May, [facility] [address] [id number] [place] [address] May, [facility] [address] [id number] [place] [address] May, [facility] [address] [id number] [place] [address] Mar, [facility] [address] [id number] [place] [address] Mar, [facility] [address] [id number] [place] [address] Mar, [facility] [address] [id number] [place] [address] Mar, [facility] [address] [id number] [place] [address] Mar, [facility] [address] [id number] [place] [address] Mar, [facility] [address] [id number] [place] [address] Mar, [facility] [address] [id number] [place] [address] Feb, [facility] [address] [id number] [place] [address] Feb, [facility] [address] [id number] [place] [address] Jan, [facility] [address] [id number] [place] [address] Jan, [facility] [address] [id number] [place] [address] Jan, [facility] [address] [id number] [place] [address] Jan, [facility] [address] [id number] [place] [address] Nov, [facility] [address] [place] [id number] [place] [address] Nov, [facility] [address] [id number] [place] [address] Sep, [facility] [address] [place] [id number] [place] [address] Aug, [facility] [address] [id number] [place] [address] Aug, [facility] [address] [id number] [place] [address] Aug, [facility] [address] [id number] [place] [address] July, [facility] [address] [id number] [place] [address] July, [facility] [address] [id number] [place] [address] Jun, [facility] [address] [id number] [place] [address] May, [facility] [address] [id number] [place] [address] 18 May, 2012 [facility] [address] [facility] [id number] [place] [address] 14 May, 2012 [facility] [address] [id number] [place] [address] 13 May, 2012 [facility] [address] [id number] [place] [address] 12 May, 2012 [facility] [address] [id number] [place] [address] 11 May, 2012 [facility] [address] [id number] [place] [address] 06 May, 2012 [facility] [address] [id number] [place] [address] 06 May, 2012 [facility] [address] [id number] [place] [address] May, [facility] [address] [id number] [place] [address] May, [facility] [address] [id number] [place] [address] May, [facility] [address] [id number] [place] [address] Apr, [facility] [address] [id number] [place] [address] Mar, [facility] [address] [id number] [place] [address] Mar, [facility] [address] [id number] [place] [address] Jan, [facility] [address] [id number] [place] [address] Jan, [facility] [id number] [place] [id number] Oct, [facility] [address] [id number] [place] [address] Sep, [facility] [address] [id number] [place] [address] Sep, [facility] [address] [id number] [place] [address] Aug, [facility] [address] [id number] [place] [address] Aug, [facility] [address] [id number] [place] [address] Aug, [facility] [address] [id number] [place] [address] Aug, [facility] [address] [id number] [place] [address] Aug, [facility] [address] [id number] [place] [address] Jun, [facility] [address] [id number] [place] [address] May, [facility] [address] [id number] [place] [address] Mar, [facility] [address] [id number] [place] [address] Mar, [facility] [address] [id number] [place] [address] Feb, [facility] [address] [id number] [place] [address] Jan, [facility] [address] [id number] [place] [address] Jan, [facility] [address] [id number] [place] [address] 16 Jan, 2011 [facility] [address] [place] [id number] [place] [address] Jan, [facility] [address] [id number] [place] [address] 31 Dec, 2010 [facility] [address] [id number] [place] [address] Dec, [facility] [address] [id number] [place] [address] Dec, [facility] [address] [place] [id number] [place] [address] Dec, [facility] [address] [id number] [place] [address] Feb, [facility] [address] [place] [id number] [place] [address] Jan, [facility] [address] [place] [id number] [place] [address] Jan, [facility] [address] [place] [id number] [place] [address] July, [facility] [address] [place] [id number] [place] [address] July, [facility] [address] [place] [id number] [place] [address] July, [facility] [address] [place] [id number] [place] [address] July, [facility] [address] [place] [id number] [place] [address] July, [facility] [address] [place] [id number] [place] [address] Feb, [facility] [address] [place] [id number] [place] [address] Feb, [facility] [address] [id number] [place] [address] Jan, [facility] [address] [place] [id number] [place] [address] Jan, IMMUNIZATIONS No Known Immunizations SOCIAL HISTORY Never Assessed REASON FOR VISIT PLAN OF CARE VITAL SIGNS Height 66 in 2013-05-26 Weight 276.2 lbs 2013-05-26 Temperature 98.6 degrees Fahrenheit 2013-05-26 Heart Rate 82 bpm 2013-05-26 Respiratory Rate 20 2013-05-26 Blood pressure systolic 100 mmHg 2013-05-26 Blood pressure diastolic 70 mmHg 2013-05-26 MEDICATIONS Unknown Medications RESULTS No Results PROCEDURES Procedure Date Ordered Result Body Site URINE CULTURE/COLONY COUNT May 26, 2013 URINALYSIS, AUTO, W/O SCOPE May 26, 2013 INSTRUCTIONS MEDICATIONS ADMINISTERED No Known Medications MEDICAL (GENERAL) HISTORY Type Description Date Medical History asthma-dx at age 11-12 Medical History hypertension-hx of pre-eclam psia with second , was induced at 35 weeks Medical History cardiomyopathy- (non-ischemic) (Erin) Medical History depression Medical History CHF Surgical History tubal 2013 Surgical History tonsillectomy Hospitalization History [facility] 2019
--- OUTSIDE RECORDS SUMMARY | 2019-10-21 21:42 | XMS REPORT ---
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 Name Role Phone ALLEN MING Unavailable PROBLEMS Type Condition ICD9-CM Code [id number] Code Onset Dates Condition S tatus SNOMED Code Problem Nondependent tobacco use disorder 305.1 Active 443558142 Problem Seasonal allergic rhinitis due to pollen J30.1 Active 53277211 Problem Heart failure, unspecified H F chronicity, unspecified heart failure type I50.9 Active 75161614 Problem Obesity, unspecified 278.00 Active 011418365 Problem Other and unspecified hyperlipidemia 272.4 Active 85306961 Problem Asthma J45.909 Active 320565270 Problem Major depressive disorder, recurrent episode, severe 296.33 Active [id number] ALLERGIES No Information ENCOUNTERS Encounter Location Date Diagnosis [place] [address] [address] Nov, [place] [address] [address] Aug, [place] [address] [address] July, [place] [address] [address] July, [place] [address] [address] May, [place] [address] [address] May, Morbid obesity E66.01 and Localized jefferson a R60.0 [place] [address] [address] Apr, [place] [address] [address] Mar, [place] [address] [address] Mar, Heart failure, unspecified HF chronicity , unspecified heart failure type I50.9 [facility] [address] [place] [id number] [place] [address] Apr, Seasonal allergic rhinitis d ue to pollen J30.1 and Asthma J45.909 [facility] [address] [address] Jan, Seasonal allergic rhinitis d ue to pollen J30.1 [facility] W[facility] IN [address] [address] Dec, Acute upper respiratory infe ction, unspecified J06.9 [place] [address] [address] Dec, [facility] WALK IN [place] [address] [address] July, Environmental allergies Z91. 09 [place] [address] [address] Oct, Abscess 682.9 [place] [address] [address] Oct, Mood disorder 296.90 [place] [address] [address] Sep, Screen for STD (sexually transmitted dis ease) V74.5 [place] [address] [address] Sep, [place] [address] [address] Sep, Depression 311 [place] [address] [address] Sep, Major depressive disorder, recurrent epi sode, severe 296.33 and No condition on Jewett II V71.09 [facility] [address] [id number] [place] [address] 10 Sep, 2014 [facility] [address] [id number] [place] [address] 14 Jun, 2014 [facility] [address] [id number] [place] [address] 13 Jun, 2014 [facility] [address] [id number] [place] [address] 16 Nov, 2013 [facility] [address] [id number] [place] [address] 16 Nov, 2013 [facility] [address] [id number] [place] [address] 15 Nov, 2013 [facility] [address] [id number] [place] [address] 15 Nov, 2013 [facility] [address] [id number] [place] [address] Nov, [facility] [address] [id number] [place] [address] Nov, [facility] [address] [id number] [place] [address] Oct, [facility] [address] [id number] [place] [address] Oct, [facility] [address] [id number] [place] [address] Aug, [facility] [address] [id number] [place] [address] Aug, [facility] [address] [id number] [place] [address] Aug, [facility] [address] [id number] [place] [address] Aug, [facility] [address] [id number] [place] [address] July, [facility] [address] [id number] [place] [address] July, [facility] [address] [id number] [place] [address] July, [facility] [address] [id number] [place] [address] July, [facility] [address] [id number] [place] [address] Jun, [facility] [address] [id number] [place] [address] Jun, [facility] [address] [id number] [place] [address] May, [facility] [address] [id number] [place] [address] May, [facility] [address] [id number] [place] [address] May, [facility] [address] [id number] [place] [address] May, [facility] [address] [id number] [place] [address] May, [facility] [address] [id number] [place] [address] Mar, [facility] [address] [id number] [place] [address] Mar, [facility] [address] [id number] [place] [address] Mar, [facility] [address] [id number] [place] [address] Mar, [facility] [address] [id number] [place] [address] Mar, [facility] [address] [id number] [place] [address] Mar, [facility] [address] [id number] [place] [address] Mar, [facility] [address] [id number] [place] [address] Feb, [facility] [address] [id number] [place] [address] Feb, [facility] [address] [id number] [place] [address] Jan, [facility] [address] [place] [id number] [place] [address] Jan, [facility] [address] [id number] [place] [address] Jan, [facility] [address] [id number] [place] [address] Jan, [facility] [address] [id number] [place] [address] Nov, [facility] [address] [place] [id number] [place] [address] Nov, [facility] [address] [place] [id number] [place] [address] Sep, [facility] [address] [id number] [place] [address] Aug, [facility] [address] [place] [id number] [place] [address] Aug, [facility] [address] [place] [id number] [place] [address] Aug, [facility] [address] [id number] [place] [address] July, [facility] [address] [id number] [place] [address] July, [facility] [address] [place] [id number] [place] [address] Jun, [facility] [address] [id number] [place] [address] May, [facility] [address] [place] [id number] [place] [address] 18 May, 2012 [facility] [address] [id number] [place] [address] 14 May, 2012 [facility] [address] [id number] [place] [address] 13 May, 2012 [facility] [address] [id number] [place] [address] 12 May, 2012 [facility] [address] [id number] [place] [address] 11 May, 2012 [facility] [address] [id number] [place] [address] 06 May, 2012 [facility] [address] [id number] [place] [address] 06 May, 2012 [facility] [address] [id number] [place] [address] May, [facility] [address] [id number] [place] [address] May, [facility] [address] [id number] [place] [address] 05 May, 2012 [facility] [address] [id number] [place] [address] Apr, [facility] [address] [id number] [place] [address] Mar, [facility] [address] [id number] [place] [address] Mar, [facility] [address] [id number] [place] [address] Jan, [facility] [address] [id number] [place] [address] Jan, [facility] [id number] [place] [id number] Oct, [facility] [address] [id number] [place] [address] Sep, [facility] [address] [id number] [place] [address] Sep, [facility] [address] [id number] [place] [address] Aug, [facility] [address] [id number] [place] [address] Aug, [facility] [address] [id number] [place] [address] Aug, [facility] [address] [id number] [place] [address] Aug, [facility] [address] [id number] [place] [address] Aug, [facility] [address] [id number] [place] [address] Jun, [facility] [address] [id number] [place] [address] May, [facility] [address] [id number] [place] [address] Mar, [facility] [address] [id number] [place] [address] Mar, [facility] [address] [id number] [place] [address] Feb, [facility] [address] [id number] [place] [address] Jan, [facility] [address] [place] [id number] [place] [address] Jan, [facility] [address] [id number] [place] [address] 16 Jan, 2011 [facility] [address] [id number] [place] [address] Jan, [facility] [address] [id number] [place] [address] 31 Dec, 2010 [facility] [address] [id number] [place] [address] 17 Dec, 2010 [facility] [address] [place] [id number] [place] [address] 17 Dec, 2010 [facility] [place] [address] [place] [id number] [place] [address] Dec, [facility] [place] [address] [place] [id number] [place] [address] Feb, [facility] [place] [address] [place] [id number] [place] [address] Jan, [facility] [place] [address] [place] [id number] [place] [address] Jan, [facility] [place] [address] [place] [id number] [place] [address] July, [facility] [place] [address] [place] [id number] [place] [address] July, [facility] [place] [address] [place] [id number] [place] [address] July, [facility] [place] [address] [place] [id number] [place] [address] July, [facility] [place] [address] [place] [id number] [place] [address] July, [facility] [place] [address] [place] [id number] [place] [address] Feb, [facility] [place] [address] [place] [id number] [place] [address] Feb, [facility] [place] [address] [place] [id number] [place] [address] Jan, [facility] [place] [address] [place] [id number] [place] [address] Jan, IMMUNIZATIONS No Known Immunizations SOCIAL HISTORY [...] depression Medical History [facility] Surgical History tubal 2014 Surgical History tonsillectomy Hospitalization History [facility] 2019
--- OUTSIDE RECORDS SUMMARY | 2019-10-21 21:42 | XMS REPORT ---
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 Name Role Phone AB JORGE Unavailable PROBLEMS Type Condition ICD9-CM Code JYA70-NZ Code Onset Dates Condition S tatus SNOMED Code Problem Seasonal allergic rhinitis due to pollen J30.1 Active 04365282 Problem Heart failure, unspecified H F chronicity, unspecified heart failure type I50.9 Active 47914385 Problem Asthma J45.909 Active 500111578 ALLERGIES No Information ENCOUNTERS Encounter Location Date Diagnosis [facility] [address] [facility] [id number] [place] [address] May, Sore throat J02.9 [facility] [address] [address] Nov, [facility] [address] [address] Aug, [facility] [address] [address] July, [facility] [address] [address] July, [facility] [address] [address] May, [facility] [address] [address] May, Morbid obesity E66.01 and Localized jefferson a R60.0 [facility] [address] [address] Apr, [facility] [address] [address] Mar, [place] [address] [address] Mar, Heart failure, unspecified HF chronicity , unspecified heart failure type I50.9 [facility] [address] [address] Apr, Seasonal allergic rhinitis d ue to pollen J30.1 and Asthma J45.909 [facility] [place] [address] [address] Jan, Seasonal allergic rhinitis d ue to pollen J30.1 [facility] IN [address] [address] Dec, Acute upper respiratory infe ction, unspecified J06.9 [place] [address] [address] Dec, [facility] [place] [address] [address] July, Environmental allergies Z91. 09 [place] [address] [address] Oct, Abscess 682.9 [place] [address] [address] Oct, Mood disorder 296.90 [place] [address] [address] Sep, Screen for STD (sexually transmitted dis ease) V74.5 [place] [address] [address] Sep, [place] [address] [address] Sep, Depression 311 [place] [address] [address] Sep, Major depressive disorder, recurrent epi sode, severe 296.33 and No condition on [place] II V71.09 [place] [address] [address] 10 Sep, 2014 [facility] [address] [facility] [id number] [facility] [place] [address] 14 Jun, 2014 [facility] [address] [facility] [id number] [place] [address] 13 Jun, 2014 [facility] [address] [id number] [place] [address] 16 Nov, 2013 [facility] [address] [facility] [id number] [place] [address] 16 Nov, 2013 [facility] [address] [facility] [id number] [place] [address] 15 Nov, 2013 [facility] [address] [id number] [place] [address] 15 Nov, 2013 [facility] [address] [id number] [place] [address] 12 Nov, 2013 [facility] [address] [id number] [place] [address] Nov, [facility] [address] [id number] [place] [address] Oct, [facility] [address] [id number] [place] [address] Oct, [facility] [address] [id number] [place] [address] Aug, [facility] [address] [id number] [place] [address] Aug, [facility] [address] [id number] [place] [address] Aug, [facility] [address] [id number] [place] [address] Aug, [facility] [address] [id number] [place] [address] July, [facility] [address] [id number] [place] [address] July, [facility] [address] [id number] [place] [address] July, [facility] [address] [id number] [place] [address] July, [facility] [address] [id number] [place] [address] Jun, [facility] [address] [id number] [place] [address] Jun, [facility] [address] [id number] [place] [address] May, [facility] [address] [id number] [place] [address] May, [facility] [address] [id number] [place] [address] May, [facility] [address] [id number] [place] [address] May, [facility] [address] [id number] [place] [address] May, [facility] [address] [id number] [place] [address] Mar, [facility] [address] [id number] [place] [address] Mar, [facility] [address] [id number] [place] [address] Mar, [facility] [address] [id number] [place] [address] Mar, [facility] [address] [id number] [place] [address] Mar, [facility] [address] [id number] [place] [address] Mar, [facility] [address] [id number] [place] [address] Mar, [facility] [address] [id number] [place] [address] Feb, [facility] [address] [id number] [place] [address] Feb, [facility] [address] [id number] [place] [address] Jan, [facility] [address] [id number] [place] [address] Jan, [facility] [address] [id number] [place] [address] Jan, [facility] [address] [id number] [place] [address] Jan, [facility] [address] [id number] [place] [address] Nov, [facility] [address] [id number] [place] [address] Nov, [facility] [address] [place] [id number] [place] [address] Sep, [facility] [address] [id number] [place] [address] Aug, [facility] [address] [place] [id number] [place] [address] Aug, [facility] [address] [id number] [place] [address] Aug, [facility] [address] [place] [id number] [place] [address] July, [facility] [address] [id number] [place] [address] July, [facility] [address] [id number] [place] [address] Jun, [facility] [address] [id number] [place] [address] May, [facility] [address] [place] [id number] [place] [address] May, [facility] [address] [id number] [place] [address] 14 May, 2012 [facility] [address] [id number] [place] [address] 13 May, 2012 [facility] [address] [id number] [place] [address] 12 May, 2012 [facility] [address] [id number] [place] [address] May, [facility] [address] [id number] [place] [address] 06 May, 2012 [facility] [address] [id number] [place] [address] 06 May, 2012 [facility] [address] [id number] [place] [address] May, [facility] [address] [id number] [place] [address] May, [facility] [address] [id number] [place] [address] May, [facility] [address] [id number] [place] [address] Apr, [facility] [address] [id number] [place] [address] Mar, [facility] [address] [id number] [place] [address] Mar, [facility] [address] [id number] [place] [address] Jan, [facility] [address] [id number] [place] [address] Jan, [facility] [id number] [place] [id number] Oct, [facility] [address] [id number] [place] [address] Sep, [facility] [address] [id number] [place] [address] Sep, [facility] [address] [id number] [place] [address] 21 Aug, 2011 [facility] [address] [id number] [place] [address] Aug, [facility] [address] [id number] [place] [address] Aug, [facility] [address] [id number] [place] [address] Aug, [facility] [address] [id number] [place] [address] 18 Aug, 2011 [facility] [address] [id number] [place] [address] Jun, [facility] [address] [id number] [place] [address] May, [facility] [address] [id number] [place] [address] Mar, [facility] [address] [id number] [place] [address] Mar, [facility] [address] [id number] [place] [address] Feb, [facility] [address] [id number] [place] [address] Jan, [facility] [address] [id number] [place] [address] Jan, [facility] [address] [id number] [place] [address] Jan, [facility] [address] [id number] [place] [address] Jan, [facility] [address] [id number] [place] [address] 31 Dec, 2010 [facility] [address] [id number] [place] [address] Dec, [facility] [address] [id number] [place] [address] Dec, [facility] [address] [place] [id number] [place] [address] Dec, [facility] [address] [place] [id number] [place] [address] Feb, [facility] [address] [place] [id number] [place] [address] Jan, [facility] [address] [place] [id number] [place] [address] Jan, [facility] [address] [place] [id number] [place] [address] July, [facility] [address] [address] July, [facility] [address] [address] July, [facility] [address] [address] July, [facility] [address] [place] [id number] [place] [address] July, [facility] [address] [place] [id number] [place] [address] Feb, [facility] [address] [place] [id number] [place] [address] Feb, [facility] [address] [place] [id number] [place] [address] Jan, [facility] [address] [place] [id number] [place] [address] Jan, IMMUNIZATIONS No Known Immunizations SOCIAL HISTORY Never Assessed REASON FOR VISIT Medication Refill PLAN OF CARE VITAL SIGNS MEDICATIONS Medication Instructions Dosage Frequency Start Date End Date Duration S tatus Metoprolol Succinate ER 25 MG Orally Once a day 1 tablet 24h 14 Apr, 2018 30 day(s) Active RESULTS No Results PROCEDURES No Known procedures INSTRUCTIONS MEDICATIONS ADMINISTERED No Known Medications MEDICAL (GENERAL) HISTORY Type Description Date Medical History asthma-dx at age 11-12 Medical History hypertension-hx of pre-eclam psia with second , was induced at 35 weeks Medical History cardiomyopathy- (non-ischemic) (Erin) Medical History depression Medical History CHF Surgical History tonsillectomy Surgical History tubal 2013 Surgical History tonsillectomy Surgical History tubal syjqefrh-Vydogl-gl dev eloped respiratory issues and heart failure following the surgery 01/2011 Surgical History echo-07/2009, 10/21/09, 04/15, 10/04/10 Hospitalization History PPD #4 for non-ischemic card iomyopathy, respiratory distress due to pulmonary edema, ARF 07/2009 Hospitalization History surgeries
--- OUTSIDE RECORDS SUMMARY | 2019-10-21 21:42 | XMS REPORT ---
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 Name Role Phone MING VILLA Unavailable PROBLEMS Type Condition ICD9-CM Code LZA29-CQ Code Onset Dates Condition S tatus SNOMED Code Problem Seasonal allergic rhinitis due to pollen J30.1 Active 50593323 Problem Heart failure, unspecified H F chronicity, unspecified heart failure type I50.9 Active 66270424 Problem Asthma J45.909 Active [id number] ALLERGIES No Information ENCOUNTERS Encounter Location Date Diagnosis [facility] [address] [facility] [id number] [address] [place] [address] May, Sore throat J02.9 [facility] [address] [address] Nov, [facility] [address] [address] Aug, [facility] [address] [address] July, [facility] [address] [address] July, [facility] [address] [address] May, [facility] [address] [address] May, Morbid obesity E66.01 and Localized jefferson a R60.0 [facility] [address] [address] Apr, [facility] [address] [address] Mar, [place] [address] [address] Mar, Heart failure, unspecified HF chronicity , unspecified heart failure type I50.9 [facility] [address] [place] [id number] [place] [address] Apr, Seasonal allergic rhinitis d ue to pollen J30.1 and Asthma J45.909 [facility] [address] [address] Jan, Seasonal allergic rhinitis d ue to pollen J30.1 [facility] [address] [address] Dec, Acute upper respiratory infe ction, unspecified J06.9 [place] [address] [address] Dec, [facility] [address] [address] July, Environmental allergies Z91. 09 [place] [address] [address] Oct, Abscess 682.9 [place] [address] [address] Oct, Mood disorder 296.90 [place] [address] [address] Sep, Screen for STD (sexually transmitted dis ease) V74.5 [place] [address] [address] Sep, [place] [address] [address] Sep, Depression 311 [place] [address] [address] Sep, Major depressive disorder, recurrent epi sode, severe 296.33 and No condition on [place]cad[place] II V71.09 [place] [address] [place] [id number] [place] [address] 10 Sep, 2014 [facility] [address] [facility] [id number] [place] [address] 14 Jun, 2014 [facility] [address] [id number] [place] [address] 13 Jun, 2014 [facility] [address] [id number] [place] [address] 16 Nov, 2013 [facility] [address] [id number] [place] [address] 16 Nov, 2013 [facility] [address] [id number] [place] [address] 15 Nov, 2013 [facility] [address] [id number] [place] [address] 15 Nov, 2013 [facility] [address] [id number] [place] [address] 12 Nov, 2013 [facility] [address] [id number] [place] [address] 12 Nov, 2013 [facility] [address] [id number] [place] [address] Oct, [facility] [address] [id number] [place] [address] Oct, [facility] [address] [id number] [place] [address] Aug, [facility] [address] [id number] [place] [address] Aug, [facility] [address] [id number] [place] [address] Aug, [facility] [address] [id number] [place] [address] Aug, [facility] [address] [id number] [place] [address] July, [facility] [address] [id number] [place] [address] July, [facility] [address] [id number] [place] [address] July, [facility] [address] [id number] [place] [address] July, [facility] [address] [id number] [place] [address] Jun, [facility] [address] [id number] [place] [address] Jun, [facility] [address] [id number] [place] [address] May, [facility] [address] [id number] [place] [address] May, [facility] [address] [id number] [place] [address] May, [facility] [address] [id number] [place] [address] May, [facility] [address] [id number] [place] [address] May, [facility] [address] [id number] [place] [address] Mar, [facility] [address] [id number] [place] [address] Mar, [facility] [address] [id number] [place] [address] Mar, [facility] [address] [id number] [place] [address] Mar, [facility] [address] [id number] [place] [address] Mar, [facility] [address] [id number] [place] [address] Mar, [facility] [address] [id number] [place] [address] Mar, [facility] [address] [id number] [place] [address] Feb, [facility] [address] [id number] [place] [address] Feb, [facility] [address] [id number] [place] [address] Jan, [facility] [address] [id number] [place] [address] Jan, [facility] [address] [id number] [place] [address] Jan, [facility] [address] [id number] [place] [address] Jan, [facility] [address] [id number] [place] [address] Nov, [facility] [address] [id number] [place] [address] Nov, [facility] [address] [id number] [place] [address] Sep, [facility] [address] [id number] [place] [address] Aug, [facility] [address] [id number] [place] [address] Aug, [facility] [address] [id number] [place] [address] Aug, [facility] [address] [id number] [place] [address] July, [facility] [address] [id number] [place] [address] July, [facility] [address] [id number] [place] [address] Jun, [facility] [address] [id number] [place] [address] May, [facility] [address] [id number] [place] [address] May, [facility] [address] [id number] [place] [address] 14 May, 2012 [facility] [address] [id number] [place] [address] 13 May, 2012 [facility] [address] [id number] [place] [address] 12 May, 2012 [facility] [address] [id number] [place] [address] 11 May, 2012 [facility] [address] [id number] [place] [address] 06 May, 2012 [facility] [address] [id number] [place] [address] 06 May, 2012 [facility] [address] [id number] [place] [address] 06 May, 2012 [facility] [address] [id number] [place] [address] May, [facility] [address] [id number] [place] [address] 05 May, 2012 [facility] [address] [id number] [place] [address] Apr, [facility] [address] [id number] [place] [address] Mar, [facility] [address] [id number] [place] [address] Mar, [facility] [address] [id number] [place] [address] Jan, [facility] [address] [id number] [place] [address] Jan, [facility] [id number] [place] [id number] Oct, [facility] [address] [id number] [place] [address] Sep, [facility] [address] [id number] [place] [address] Sep, [facility] [address] [id number] [place] [address] Aug, [facility] [address] [id number] [place] [address] Aug, [facility] [address] [id number] [place] [address] Aug, [facility] [address] [id number] [place] [address] Aug, [facility] [address] [id number] [place] [address] Aug, [facility] [address] [id number] [place] [address] Jun, [facility] [address] [id number] [place] [address] May, [facility] [address] [place] [id number] [place] [address] Mar, [facility] [address] [place] [id number] [place] [address] Mar, [facility] [address] [id number] [place] [address] Feb, [facility] [address] [id number] [place] [address] Jan, [facility] [address] [place] [id number] [place] [address] Jan, [facility] [address] [id number] [place] [address] 16 Jan, 2011 [facility] [address] [id number] [place] [address] Jan, [facility] [address] [place] [id number] [place] [address] 31 Dec, 2010 [facility] [address] [id number] [place] [address] 17 Dec, 2010 [facility] [address] [id number] [place] [address] Dec, [facility] [address] [id number] [place] [address] Dec, [facility] [address] [place] [id number] [place] [address] Feb, [facility] [address] [id number] [place] [address] Jan, [facility] [address] [place] [id number] [place] [address] Jan, [facility] [address] [place] [id number] [place] [address] July, [facility] [address] [place] [id number] [place] [address] July, [facility] [address] [place] [id number] [place] [address] July, [facility] [address] [place] [id number] [place] [address] July, [facility] [address] [place] [id number] [place] [address] July, [facility] [address] [place] [id number] [place] [address] Feb, [facility] [address] [place] [id number] [place] [address] Feb, [facility] [address] [place] [id number] [place] [address] Jan, [facility] [address] [place] [id number] [place] [address] Jan, IMMUNIZATIONS No Known Immunizations SOCIAL HISTORY [...] 2014 Surgical History tonsillectomy Surgical History tubal olttxgfo-[id number]-aj dev eloped respiratory issues and heart failure following the surgery 01/2011 Surgical History echo-07/2009, 10/21/09, 04/15, 10/04/10 Hospitalization History PPD #4 for non-ischemic card iomyopathy, respiratory distress due to pulmonary edema, ARF 07/2009 Hospitalization History surgeries
--- OUTSIDE RECORDS SUMMARY | 2019-10-21 21:42 | XMS REPORT ---
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 Name Role Phone MING VILLA Unavailable PROBLEMS Type Condition ICD9-CM Code TTD26-UF Code Onset Dates Condition S tatus SNOMED Code Problem Seasonal allergic rhinitis due to pollen J30.1 Active 36562380 Problem Heart failure, unspecified H F chronicity, unspecified heart failure type I50.9 Active 92354893 Problem Asthma J45.909 Active [id number] ALLERGIES No Information ENCOUNTERS Encounter Location Date Diagnosis [facility] [address] [facility] [id number] [address] [place] [address] May, Sore throat J02.9 [facility] [address] [id number] [address] [place] [address] Nov, [facility] [address] [facility] [id number] [address] [place] [address] Aug, [facility] [address] [id number] [address] [place] [address] July, [facility] [address] [facility] [id number] [address] [place] [address] July, [facility] [address] [id number] [address] [place] [address] May, [facility] [address] [facility] [id number] [address] [place] [address] May, Morbid obesity E66.01 and Lo calized edema R60.0 [facility] [address] [id number] [address] [place] [address] Apr, [facility] [address] [address] Mar, [facility] [address] [address] Mar, Heart failure, unspecified H F chronicity, unspecified heart failure type I50.9 [facility] [address] [address] Apr, Seasonal allergic rhinitis d ue to pollen J30.1 and Asthma J45.909 [facility] [address] [address] Jan, Seasonal allergic rhinitis d ue to pollen J30.1 [facility] [address] [address] Dec, Acute upper respiratory infe ction, unspecified J06.9 [place] [address] [address] Dec, [facility] [address] [address] July, Environmental allergies Z91. 09 [place] [address] [address] Oct, Abscess 682.9 [place] [address] [address] Oct, Mood disorder 296.90 [place] [address] [address] Sep, Screen for STD (sexually tra nsmitted disease) V74.5 [place] [address] [address] Sep, [place] [address] [address] Sep, Depression 311 [place] [address] [address] Sep, Major depressive disorder, r ecurrent episode, severe 296.33 and No condition on [place] II V71.09 [facility] [address] [id number] [address] [place] [address], [place] [address] 10 Sep, 2014 [facility] [address] [id number] [address] [place] [address], [place] [address] 14 Jun, 2014 [facility] [address] [id number] [address] [place] [address] 13 Jun, 2014 [facility] [address] [id number] [address] [place] [address], [place] [address] 16 Nov, 2013 [facility] [address] [id number] [address] [place] [address], [place] [address] 16 Nov, 2013 [facility] [address] [id number] [address] [place] [address] 15 Nov, 2013 [facility] [address] [id number] [address] [place] [address], [place] [address] 15 Nov, 2013 [facility] [address] [id number] [address] [place] [address] 12 Nov, 2013 [facility] [address] [id number] [address] [place] [address], [place] [address] Nov, [facility] [address] [id number] [address] [place] [address] Oct, [facility] [address] [id number] [address] [place] [address] Oct, [facility] [address] [id number] [address] [place] [address] Aug, [facility] [address] [id number] [address] [place] [address] Aug, [facility] [address] [id number] [address] [place] [address] Aug, [facility] [address] [id number] [address] [place] [address] Aug, [facility] [address] [id number] [address] [place] [address], [place] [address] July, [facility] [address] [id number] [address] [place] [address], [place] [address] July, [facility] [address] [id number] [address] [place] [address], [place] [address] July, [facility] [address] [id number] [address] [place] [address], [place] [address] July, [facility] [address] [id number] [address] [place] [address], [place] [address] Jun, [facility] [address] [id number] [address] [place] [address], [place] [address] Jun, [facility] [address] [id number] [address] [place] [address], [place] [address] May, [facility] [address] [id number] [address] [place] [address], [place] [address] May, [facility] [address] [id number] [address] [place] [address], [place] [address] May, [facility] [address] [id number] [address] [place] [address], [place] [address] May, [facility] [address] [id number] [address] [place] [address], [place] [address] May, [facility] [address] [id number] [address] [place] [address], [place] [address] Mar, [facility] [address] [id number] [address] [place] [address], [place] [address] Mar, [facility] [address] [id number] [address] [place] [address], [place] [address] Mar, [facility] [address] [id number] [address] [place] [address], [place] [address] Mar, [facility] [address] [id number] [address] [place] [address], [place] [address] Mar, [facility] [address] [id number] [address] [place] [address], [place] [address] Mar, [facility] [address] [id number] [address] [place] [address], [place] [address] Mar, [facility] [address] [id number] [address] [place] [address], [place] [address] Feb, [facility] [address] [id number] [address] [place] [address], [place] [address] Feb, [facility] [address] [id number] [address] [place] [address], [place] [address] Jan, [facility] [address] [id number] [address] [place] [address], [place] [address] Jan, [facility] [address] [id number] [address] [place] [address], [place] [address] Jan, [facility] [address] [id number] [address] [place] [address], [place] [address] Jan, [facility] [address] [id number] [address] [place] [address], [place] [address] Nov, [facility] [address] [id number] [address] [place] [address], [place] [address] Nov, [facility] [address] [id number] [address] [place] [address], [place] [address] Sep, [facility] [address] [id number] [address] [place] [address], [place] [address] Aug, [facility] [address] [id number] [address] [place] [address], [place] [address] Aug, [facility] [address] [id number] [address] [place] [address], [place] [address] Aug, [facility] [address] [id number] [address] [place] [address], [place] [address] July, [facility] [address] [id number] [facility] [place] [address] July, [facility] [address] [id number] [facility] [place] [address] 29 Jun, 2012 [facility] [address] [id number] [address] [place] [address], [place] [address] 28 May, 2012 [facility] [address] [id number] [address] [place] [address], [place] [address] 18 May, 2012 [facility] [address] [id number] [address] [place] [address], [place] [address] 14 May, 2012 [facility] [address] [id number] [address] [place] [address], [place] [address] 13 May, 2012 [facility] [address] [id number] [address] [place] [address], [place] [address] May, [facility] [address] [id number] [address] [place] [address], [place] [address] 11 May, 2012 [facility] [address] [id number] [address] [place] [address], [place] [address] May, [facility] [address] [id number] [address] [place] [address], [place] [address] 06 May, 2012 [facility] [address] [id number] [address] [place] [address], [place] [address] May, [facility] [address] [id number] [address] [place] [address], [place] [address] 06 May, 2012 [facility] [address] [id number] [address] [place] [address], [place] [address] 05 May, 2012 [facility] [address] [id number] [address] [place] [address], [place] [address] 06 Apr, 2012 [facility] [address] [id number] [address] [place] [address], [place] [address] 18 Mar, 2012 [facility] [address] [id number] [address] [place] [address], [place] [address] Mar, [facility] [address] [id number] [address] [place] [address], [place] [address] Jan, [facility] [address] [id number] [address] [place] [address], [place] [address] Jan, [facility] [address] [id number] [id number] Oct, [facility] [address] [id number] [address] [place] [address], [place] [address] Sep, [facility] [address] [id number] [address] [place] [address], [place] [address] Sep, [facility] [address] [id number] [address] [place] [address], [place] [address] Aug, [facility] [address] [id number] [address] [place] [address], [place] [address] Aug, [facility] [address] [id number] [address] [place] [address], [place] [address] Aug, [facility] [address] [id number] [address] [place] [address], [place] [address] Aug, [facility] [address] [id number] [address] [place] [address], [place] [address] Aug, [facility] [address] [id number] [address] [place] [address], [place] [address] Jun, [facility] [address] [id number] [address] [place] [address], [place] [address] May, [facility] [address] [id number] [address] [place] [address], [place] [address] Mar, [facility] [address] [id number] [address] [place] [address], [place] [address] Mar, [facility] [address] [id number] [address] [place] [address], [place] [address] Feb, [facility] [address] [id number] [address] [place] [address], [place] [address] Jan, [facility] [address] [id number] [address] [place] [address], [place] [address] Jan, [facility] [address] [id number] [address] [place] [address], [place] [address] Jan, [facility] [address] [id number] [address] [place] [address], [place] [address] Jan, [facility] [address] [id number] [address] [place] [address], [place] [address] Dec, [facility] [address] [id number] [address] [place] [address], [place] [address] Dec, [facility] [address] [id number] [address] [place] [address], [place] [address] Dec, [facility] [address] [id number] [address] [place] [address], [place] [address] Dec, [facility] [address] [id number] [address] [place] [address], [place] [address] Feb, [facility] [address] [id number] [address] [place] [address], [place] [address] Jan, [facility] [address] [id number] [address] [place] [address], [place] [address] Jan, [facility] [address] [id number] [address] [place] [address], [place] [address] July, [facility] [address] [id number] [address] [place] [address], [place] [address] July, [facility] [address] [id number] [address] [place] [address], [place] [address] July, [facility] [address] [id number] [address] [place] [address], [place] [address] July, [facility] [address] [id number] [address] [place] [address], [place] [address] July, [facility] [address] [facility] [id number] [address] [place] [address] Feb, [facility] [address] [facility] [id number] [address] [place] [address] Feb, [facility] [address] [facility] [id number] [address] [place] [address] Jan, [facility] [address] [facility] [id number] [address] [place] [address] Jan, IMMUNIZATIONS No Known Immunizations SOCIAL HISTORY [...] 2014 Surgical History tonsillectomy Surgical History tubal ahnwfyai-Dktald-qx dev eloped respiratory issues and heart failure following the surgery 01/2011 Surgical History echo-07/2009, 10/21/09, 04/15, 10/04/10 Hospitalization History PPD #4 for non-ischemic card iomyopathy, respiratory distress due to pulmonary edema, ARF 07/2009 Hospitalization History surgeries
--- OUTSIDE RECORDS SUMMARY | 2019-10-21 21:42 | XMS REPORT ---
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 Name Role Phone MING VILLA Unavailable PROBLEMS Type Condition ICD9-CM Code IPW73-MY Code Onset Dates Condition S tatus SNOMED Code Problem Seasonal allergic rhinitis due to pollen J30.1 Active 00056859 Problem Heart failure, unspecified H F chronicity, unspecified heart failure type I50.9 Active 76664183 Problem Asthma J45.909 Active [id number] ALLERGIES No Information ENCOUNTERS Encounter Location Date Diagnosis [facility] [id number] [place] [address] May, Sore throat J02.9 [facility] [address] [address] Nov, [facility] [address] [address] Aug, [facility] [address] [address] July, [facility] [address] [address] July, [facility] [address] [address] May, [facility] [address] [address] May, Morbid obesity E66.01 and Localized jefferson a R60.0 [facility] [address] [address] Apr, [facility] [address] [address] Mar, [place] [address] [address] Mar, Heart failure, unspecified HF chronicity , unspecified heart failure type I50.9 [facility] [address] [place] [id number] [place] [address] Apr, Seasonal allergic rhinitis d ue to pollen J30.1 and Asthma J45.909 [facility] [address] [address] Jan, Seasonal allergic rhinitis d ue to pollen J30.1 [facility] [address] [address] Dec, Acute upper respiratory infe ction, unspecified J06.9 [place] [address] [address] Dec, [facility] [address] [address] July, Environmental allergies Z91. 09 [place] [address] [address] Oct, Abscess 682.9 [place] [address] [address] Oct, Mood disorder 296.90 [place] [address] [address] Sep, Screen for STD (sexually transmitted dis ease) V74.5 [place] [address] [address] Sep, [place] [address] [address] Sep, Depression 311 [place] [address] [address] Sep, Major depressive disorder, recurrent epi sode, severe 296.33 and No condition on [place] V71.09 [place] [address] [place] [id number] [place] [address] 10 Sep, 2014 [facility] [address] [id number] [place] [address] 14 Jun, 2014 [facility] [address] [id number] [place] [address] 13 Jun, 2014 [facility] [address] [id number] [place] [address] 16 Nov, 2013 [facility] [address] [id number] [place] [address] 16 Nov, 2013 [facility] [address] [id number] [place] [address] 15 Nov, 2013 [facility] [address] [id number] [place] [address] 15 Nov, 2013 [facility] [address] [id number] [place] [address] 12 Nov, 2013 [facility] [address] [id number] [place] [address] 12 Nov, 2013 [facility] [address] [id number] [place] [address] Oct, [facility] [address] [id number] [place] [address] Oct, [facility] [address] [id number] [place] [address] Aug, [facility] [address] [id number] [place] [address] Aug, [facility] [address] [id number] [place] [address] Aug, [facility] [address] [id number] [place] [address] Aug, [facility] [address] [id number] [place] [address] July, [facility] [address] [id number] [place] [address] July, [facility] [address] [id number] [place] [address] July, [facility] [address] [id number] [place] [address] July, [facility] [address] [id number] [place] [address] Jun, [facility] [address] [id number] [place] [address] Jun, [facility] [address] [id number] [place] [address] May, [facility] [address] [id number] [place] [address] May, [facility] [address] [id number] [place] [address] May, [facility] [address] [id number] [place] [address] May, [facility] [address] [id number] [place] [address] May, [facility] [address] [id number] [place] [address] Mar, [facility] [address] [id number] [place] [address] Mar, [facility] [address] [id number] [place] [address] Mar, [facility] [address] [id number] [place] [address] Mar, [facility] [address] [id number] [place] [address] Mar, [facility] [address] [id number] [place] [address] Mar, [facility] [address] [id number] [place] [address] Mar, [facility] [address] [id number] [place] [address] Feb, [facility] [address] [id number] [place] [address] Feb, [facility] [address] [id number] [place] [address] Jan, [facility] [address] [id number] [place] [address] Jan, [facility] [address] [id number] [place] [address] Jan, [facility] [address] [id number] [place] [address] Jan, [facility] [address] [id number] [place] [address] Nov, [facility] [address] [id number] [place] [address] Nov, [facility] [address] [id number] [place] [address] Sep, [facility] [address] [id number] [place] [address] Aug, [facility] [address] [id number] [place] [address] Aug, [facility] [address] [id number] [place] [address] Aug, [facility] [address] [id number] [place] [address] July, [facility] [address] [id number] [place] [address] July, [facility] [address] [id number] [place] [address] Jun, [facility] [address] [id number] [place] [address] May, [facility] [address] [id number] [place] [address] May, [facility] [address] [id number] [place] [address] 14 May, 2012 [facility] [address] [id number] [place] [address] 13 May, 2012 [facility] [address] [id number] [place] [address] 12 May, 2012 [facility] [address] [id number] [place] [address] 11 May, 2012 [facility] [address] [id number] [place] [address] 06 May, 2012 [facility] [address] [id number] [place] [address] 06 May, 2012 [facility] [address] [id number] [place] [address] 06 May, 2012 [facility] [address] [id number] [place] [address] May, [facility] [address] [id number] [place] [address] 05 May, 2012 [facility] [address] [id number] [place] [address] Apr, [facility] [address] [id number] [place] [address] Mar, [facility] [address] [id number] [place] [address] Mar, [facility] [address] [id number] [place] [address] Jan, [facility] [address] [id number] [place] [address] Jan, [facility] [id number] [place] [id number] Oct, [facility] [address] [id number] [place] [address] Sep, [facility] [address] [id number] [place] [address] Sep, [facility] [address] [id number] [place] [address] Aug, [facility] [address] [id number] [place] [address] Aug, [facility] [address] [id number] [place] [address] Aug, [facility] [address] [id number] [place] [address] Aug, [facility] [address] [id number] [place] [address] Aug, [facility] [address] [id number] [place] [address] Jun, [facility] [address] [id number] [place] [address] May, [facility] [address] [place] [id number] [place] [address] Mar, [facility] [address] [place] [id number] [place] [address] Mar, [facility] [address] [id number] [place] [address] Feb, [facility] [address] [id number] [place] [address] Jan, [facility] [address] [place] [id number] [place] [address] Jan, [facility] [address] [id number] [place] [address] 16 Jan, 2011 [facility] [address] [id number] [place] [address] Jan, [facility] [address] [place] [id number] [place] [address] 31 Dec, 2010 [facility] [address] [id number] [place] [address] 17 Dec, 2010 [facility] [address] [id number] [place] [address] Dec, [facility] [address] [id number] [place] [address] Dec, [facility] [address] [place] [id number] [place] [address] Feb, [facility] [address] [id number] [place] [address] Jan, [facility] [address] [place] [id number] [place] [address] Jan, [facility] [address] [place] [id number] [place] [address] July, [facility] [address] [place] [id number] [place] [address] July, [facility] [address] [place] [id number] [place] [address] July, [facility] [address] [place] [id number] [place] [address] July, [facility] [address] [place] [id number] [place] [address] July, [facility] [address] [place] [id number] [place] [address] Feb, [facility] [address] [place] [id number] [place] [address] Feb, [facility] [address] [place] [id number] [place] [address] Jan, [facility] [address] [place] [address] [id number] [place] [address] Jan, IMMUNIZATIONS No Known Immunizations SOCIAL HISTORY [...] 2014 Surgical History tonsillectomy Surgical History tubal sdyvkqbq-Esfybj-lw dev eloped respiratory issues and heart failure following the surgery 01/2011 Surgical History echo-07/2009, 10/21/09, 04/15, 10/04/10 Hospitalization History PPD #4 for non-ischemic card iomyopathy, respiratory distress due to pulmonary edema, ARF 07/2009 Hospitalization History surgeries
--- OUTSIDE RECORDS SUMMARY | 2019-10-21 21:42 | XMS REPORT ---
Author Author Renate MOISE Organization [facility] Address [address] [place] [address] Care Team Providers Care Hi Ranger Operator Name Role Phone SUMA ONDINA Unavailable PROBLEMS Type Condition ICD9-CM Code OWN14-XC Code Onset Dates Condition S tatus SNOMED Code Problem Seasonal allergic rhinitis due to pollen J30.1 Active 91003638 Problem Heart failure, unspecified H F chronicity, unspecified heart failure type I50.9 Active 98710672 Problem Asthma J45.909 Active [id number] ALLERGIES No Information ENCOUNTERS Encounter Location Date Diagnosis [facility] [address] [facility] [id number] [place] [address] May, Sore throat J02.9 [facility] [address] [address] Nov, [facility] [address] [address] Aug, [facility] [address] [address] July, [facility] [address] [address] July, [facility] [address] [address] May, [facility] [address] [address] May, Morbid obesity E66.01 and Localized jefferson a R60.0 [facility] [address] [address] Apr, [facility] [address] [address] Mar, [place] [address] [address] Mar, Heart failure, unspecified HF chronicity , unspecified heart failure type I50.9 [facility] [address] [place] [id number] [place] [address] Apr, Seasonal allergic rhinitis d ue to pollen J30.1 and Asthma J45.909 [facility] [address] [address] Jan, Seasonal allergic rhinitis d ue to pollen J30.1 [facility] [address] [address] Dec, Acute upper respiratory infe ction, unspecified J06.9 [place] [address] [address] Dec, [facility] [address] [address] July, Environmental allergies Z91. 09 [place] [address] [address] Oct, Abscess 682.9 [place] [address] [address] Oct, Mood disorder 296.90 [place] [address] [address] Sep, Screen for STD (sexually transmitted dis ease) V74.5 [place] [address] [address] Sep, [place] [address] [address] Sep, Depression 311 [place] [address] [address] Sep, Major depressive disorder, recurrent epi sode, severe 296.33 and No condition on Jewell II V71.09 [place] [address] [place] [id number] [place] [address] 10 Sep, 2014 [facility] [address] [facility] [id number] [place] [address] 14 Jun, 2014 [facility] [address] [id number] [place] [address] 13 Jun, 2014 [facility] [address] [id number] [place] [address] 16 Nov, 2013 [facility] [address] [id number] [place] [address] 16 Nov, 2013 [facility] [address] [id number] [place] [address] 15 Nov, 2013 [facility] [address] [id number] [place] [address] 15 Nov, 2013 [facility] [address] [id number] [place] [address] 12 Nov, 2013 [facility] [address] [id number] [place] [address] 12 Nov, 2013 [facility] [address] [id number] [place] [address] Oct, [facility] [address] [id number] [place] [address] Oct, [facility] [address] [id number] [place] [address] Aug, [facility] [address] [id number] [place] [address] Aug, [facility] [address] [id number] [place] [address] Aug, [facility] [address] [id number] [place] [address] Aug, [facility] [address] [id number] [place] [address] July, [facility] [address] [id number] [place] [address] July, [facility] [address] [id number] [place] [address] July, [facility] [address] [id number] [place] [address] July, [facility] [address] [id number] [place] [address] Jun, [facility] [address] [id number] [place] [address] Jun, [facility] [address] [id number] [place] [address] May, [facility] [address] [id number] [place] [address] May, [facility] [address] [id number] [place] [address] May, [facility] [address] [id number] [place] [address] May, [facility] [address] [id number] [place] [address] May, [facility] [address] [id number] [place] [address] Mar, [facility] [address] [id number] [place] [address] Mar, [facility] [address] [id number] [place] [address] Mar, [facility] [address] [id number] [place] [address] Mar, [facility] [address] [id number] [place] [address] Mar, [facility] [address] [id number] [place] [address] Mar, [facility] [address] [id number] [place] [address] Mar, [facility] [address] [id number] [place] [address] Feb, [facility] [address] [id number] [place] [address] Feb, [facility] [address] [id number] [place] [address] Jan, [facility] [address] [id number] [place] [address] Jan, [facility] [address] [id number] [place] [address] Jan, [facility] [address] [id number] [place] [address] Jan, [facility] [address] [id number] [place] [address] Nov, [facility] [address] [id number] [place] [address] Nov, [facility] [address] [id number] [place] [address] Sep, [facility] [address] [id number] [place] [address] Aug, [facility] [address] [id number] [place] [address] Aug, [facility] [address] [id number] [place] [address] Aug, [facility] [address] [id number] [place] [address] July, [facility] [address] [id number] [place] [address] July, [facility] [address] [id number] [place] [address] Jun, [facility] [address] [id number] [place] [address] May, [facility] [address] [id number] [place] [address] May, [facility] [address] [id number] [place] [address] 14 May, 2012 [facility] [address] [id number] [place] [address] 13 May, 2012 [facility] [address] [id number] [place] [address] 12 May, 2012 [facility] [address] [id number] [place] [address] 11 May, 2012 [facility] [address] [id number] [place] [address] 06 May, 2012 [facility] [address] [id number] [place] [address] 06 May, 2012 [facility] [address] [id number] [place] [address] 06 May, 2012 [facility] [address] [id number] [place] [address] May, [facility] [address] [id number] [place] [address] 05 May, 2012 [facility] [address] [id number] [place] [address] Apr, [facility] [address] [id number] [place] [address] Mar, [facility] [address] [id number] [place] [address] Mar, [facility] [address] [id number] [place] [address] Jan, [facility] [address] [id number] [place] [address] Jan, [facility] [id number] [place] [address] Oct, [facility] [address] [id number] [place] [address] Sep, [facility] [address] [id number] [place] [address] Sep, [facility] [address] [id number] [place] [address] Aug, [facility] [address] [id number] [place] [address] Aug, [facility] [address] [id number] [place] [address] Aug, [facility] [address] [id number] [place] [address] Aug, [facility] [address] [id number] [place] [address] Aug, [facility] [address] [id number] [place] [address] Jun, [facility] [address] [id number] [place] [address] May, [facility] [address] [place] [id number] [place] [address] Mar, [facility] [address] [place] [id number] [place] [address] Mar, [facility] [address] [id number] [place] [address] Feb, [facility] [address] [id number] [place] [address] Jan, [facility] [address] [place] [id number] [place] [address] Jan, [facility] [address] [id number] [place] [address] 16 Jan, 2011 [facility] [address] [id number] [place] [address] Jan, [facility] [address] [place] [id number] [place] [address] 31 Dec, 2010 [facility] [address] [id number] [place] [address] 17 Dec, 2010 [facility] [address] [id number] [place] [address] 17 Dec, 2010 [facility] [address] [id number] [place] [address] 10 Dec, 2010 [facility] [address] [id number] [place] [address] Feb, [facility] [address] [id number] [place] [address] Jan, [facility] [address] [place] [id number] [place] [address] Jan, [facility] [address] [place] [id number] [place] [address] July, [facility] [address] [place] [id number] [place] [address] July, [facility] [address] [place] [id number] [place] [address] July, [facility] [address] [place] [id number] [place] [address] July, [facility] [address] [id number] [place] [address] July, [facility] [address] [place] [id number] [place] [address] Feb, [facility] [address] [place] [id number] [place] [address] Feb, [facility] [address] [place] [id number] [place] [address] Jan, [facility] [address] [place] [id number] [place] [address] Jan, IMMUNIZATIONS No Known Immunizations SOCIAL HISTORY Never Assessed REASON FOR VISIT PLAN OF CARE VITAL SIGNS Height 66 in 2013-03-13 Weight 279 lbs 2013-03-13 Temperature 97 degrees Fahrenheit 2013-03-13 Heart Rate 72 bpm 2013-03-13 Respiratory Rate 18 2013-03-13 Blood pressure systolic 92 mmHg 2013-03-13 Blood pressure diastolic 78 mmHg 2013-03-13 MEDICATIONS No Known Medications RESULTS No Results [...] 2013 Surgical History tonsillectomy Surgical History tubal ndhlpiik-[id number]-ja dev eloped respiratory issues and heart failure following the surgery 01/2011 Surgical History echo-07/2009, 10/21/09, 04/15, 10/04/10 Hospitalization History PPD #4 for non-ischemic card iomyopathy, respiratory distress due to pulmonary edema, ARF 07/2009 Hospitalization History surgeries
--- OUTSIDE RECORDS SUMMARY | 2019-10-21 21:44 | XMS REPORT | Continuity of Care Document ---
Author Author [facility] Organization [employer] Address Unknown Phone Unavailable Allergies Active Description Code Type Severity Reaction Onset Reported/Identified Relationship to Patient Clinical Status Yes Paxil Drug Allergy 01/13/2009 Yes Paxil Drug Allergy N/A N/A 01/13/2009 Yes ANESTHETIC ANESTHETIC Unknown N/A 07/07/2013 Yes paroxetine [id number] Drug Allerg y Unknown N/A 07/07/2013 Medications There is no data. Problems Date Dx Coded Attending Type Code Diagnosis Diagnosed By 12/03/2007 780.79 Mal aise And Fatigue 12/03/2007 V58.69 MED ICATION HIGH RISK 12/03/2007 IBRAHIMA GRAYSON MD 780. 79 Malaise And Fatigue 12/03/2007 IBRAHIMA GRAYSON MD V58. 69 MEDICATION HIGH RISK 12/03/2007 780.79 Mal aise And Fatigue 12/03/2007 V58.69 MED ICATION HIGH RISK 12/03/2007 MING VILLA DO 780.79 Malaise And Fatigue 12/03/2007 MING VILLA DO V58.69 MEDICATION HIGH RISK 12/03/2007 ROSALIA MADRIGAL APRN A 780.79 Malaise And Fatigue 12/03/2007 ROSALIA MADRIGAL APRN V58.69 MEDICATION HIGH RISK 12/03/2007 MING VILLA DO 780.79 Malaise And Fatigue 12/03/2007 MING VILLA DO V58.69 MEDICATION HIGH RISK 12/03/2007 MING VILLA DO 780.79 Malaise And Fatigue 12/03/2007 MING VILLA DO V58.69 MEDICATION HIGH RISK 12/03/2007 ONDINA MOISE APRN 780.79 Malaise And Fatigue 12/03/2007 ONDINA MOISE APRN V58.69 MEDICATION HIGH RISK 12/03/2007 ROSALIA MADRIGAL APRN 780.79 Malaise And Fatigue 12/03/2007 ROHAN ASSOCIATE PROFESSOR OF ENGINEERING, ROSALIA A V58.69 MEDICATION HIGH RISK 12/03/2007 ROHAN PEREAN, ROSALIA A 780.79 Malaise And Fatigue 12/03/2007 ROHAN PEREAN, ROSALIA A V58.69 MEDICATION HIGH RISK 12/03/2007 MING VILLA DO K 780.79 Malaise And Fatigue 12/03/2007 MING VILLA DO K V58.69 MEDICATION HIGH RISK 12/03/2007 CHARLEY MOISE APRNIA R 780.79 Malaise And Fatigue 12/03/2007 CHARLEY MOISE APRNIA R V58.69 MEDICATION HIGH RISK 12/03/2007 AB JORGE APRN T 780.79 Malaise And Fatigue 12/03/2007 AB JORGE APRN V58.69 MEDICATION HIGH RISK 12/03/2007 AB JORGE APRN T 780.79 Malaise And Fatigue 12/03/2007 AB JORGE APRN T V58.69 MEDICATION HIGH RISK 01/13/2009 656.13 Rh Negative Rhesus Isoimmunization 01/13/2009 V22.1 Obst etrical Services Antepartum Care Only 01/13/2009 IBRAHIMA GRAYSON MD 656. 13 Rh Negative Rhesus Isoimmunization 01/13/2009 IBRAHIMA GRAYSON MD V22. 1 Obstetrical Services Antepartum Care Only 01/13/2009 656.13 Rh Negative Rhesus Isoimmunization 01/13/2009 V22.1 Obst etrical Services Antepartum Care Only 01/13/2009 MING VILLA DO 656.13 Rh Negative Rhesus Isoimmunization 01/13/2009 MING VILLA DO V22.1 Obstetrical Services Antepartum Care Only 01/13/2009 ROHANROSALIA De Anda APRN A 656.13 Rh Negative Rhesus Isoimmunization 01/13/2009 ROHANROSALIA De Anda APRN A V2 2.1 Obstetrical Services Antepartum Care Only 01/13/2009 MING VILLA DO 656.13 Rh Negative Rhesus Isoimmunization 01/13/2009 MING VILLA DO V22.1 Obstetrical Services Antepartum Care Only 01/13/2009 MING VILLA DO 656.13 Rh Negative Rhesus Isoimmunization 01/13/2009 MING VILLA DO V22.1 Obstetrical Services Antepartum Care Only 01/13/2009 ONDINA MOISE APRN R 656.13 Rh Negative Rhesus Isoimmunization 01/13/2009 CHARLEY MOISE APRNIA R V22.1 Obstetrical Services Antepartum Care Only 01/13/2009 ROHAN PEREAN, ROSALIA A 656.13 Rh Negative Rhesus Isoimmunization 01/13/2009 ROHAN PEREAN, ROSALIA A V2 2.1 Obstetrical Services Antepartum Care Only 01/13/2009 ROHAN PEREAN, ROSALIA A 656.13 Rh Negative Rhesus Isoimmunization 01/13/2009 ROHAN PEREAN, ROSALIA A V2 2.1 Obstetrical Services Antepartum Care Only 01/13/2009 JEAN-CLAUDE VILLA DOA K 656.13 Rh Negative Rhesus Isoimmunization 01/13/2009 VILLA DO MING K V22.1 Obstetrical Services Antepartum Care Only 01/13/2009 ONDINA MOISE APRN R 656.13 Rh Negative Rhesus Isoimmunization 01/13/2009 ONDINA MOISE APRN R V22.1 Obstetrical Services Antepartum Care Only 01/13/2009 AB JORGE APRN T 656.13 Rh Negative Rhesus Isoimmunization 01/13/2009 AB JORGE APRN V2 2.1 Obstetrical Services Antepartum Care Only 01/13/2009 AB JORGE APRN T 656.13 Rh Negative Rhesus Isoimmunization 01/13/2009 AB JORGE APRN T V2 2.1 Obstetrical Services Antepartum Care Only 02/12/2009 V72.31 Secondary History Teacher Exam, Routine 02/12/2009 V74.5 Std Screen 02/12/2009 IBRAHIMA GRAYSON MD V72. 31 Secondary History Teacher Exam, Routine 02/12/2009 IBRAHIMA GRAYSON MD V74. 5 Std Screen 02/12/2009 V72.31 Secondary History Teacher Exam, Routine 02/12/2009 V74.5 Std Screen 02/12/2009 JEAN-CLAUDE VILLA DOA K V72.31 Secondary History Teacher Exam, Routine 02/12/2009 VILLA DO MING K V74.5 Std Screen 02/12/2009 ROHANWILLIAM De Anda APRNIDI A V72.31 Secondary History Teacher Exam, Routine 02/12/2009 ROHANAdilson CHAVIRA ROSALIA A V7 4.5 Std Screen 02/12/2009 VILLA DO MING K V72.31 Secondary History Teacher Exam, Routine 02/12/2009 VILLA DO MING K V74.5 Std Screen 02/12/2009 VILLA DO, MING K V72.31 Secondary History Teacher Exam, Routine 02/12/2009 VILLA DO, MING K V74.5 Std Screen 02/12/2009 CHARLEY MOISE APRNIA R V72.31 Secondary History Teacher Exam, Routine 02/12/2009 MOISE ASSOCIATE PROFESSOR OF ENGINEERING, ONDINA R V74.5 Std Screen 02/12/2009 ROHAN ASSOCIATE PROFESSOR OF ENGINEERING, ROSALIA A V72.31 Secondary History Teacher Exam, Routine 02/12/2009 ROHAN ASSOCIATE PROFESSOR OF ENGINEERING, ROSALIA A V7 4.5 Std Screen 02/12/2009 ROHAN ASSOCIATE PROFESSOR OF ENGINEERING, ROSALIA A V72.31 Secondary History Teacher Exam, Routine 02/12/2009 ROHAN ASSOCIATE PROFESSOR OF ENGINEERING, ROSALIA A V7 4.5 Std Screen 02/12/2009 VILLA DO, MING K V72.31 Secondary History Teacher Exam, Routine 02/12/2009 VILLA DO, MING K V74.5 Std Screen 02/12/2009 SUMA CHAVIRA, ONDINA R V72.31 Secondary History Teacher Exam, Routine 02/12/2009 CHARLEY MOISE APRNIA R V74.5 Std Screen 02/12/2009 LUISITO CHAVIRA AB T V72.31 Secondary History Teacher Exam, Routine 02/12/2009 LUISITO CHAVIRA, AB T V7 4.5 Std Screen 02/12/2009 LUISITO CHAVIRA AB T V72.31 Secondary History Teacher Exam, Routine 02/12/2009 LUISITO CHAVIRA, AB T V7 4.5 Std Screen 06/28/2009 648.20 PRE GNANCY COMPLICATIONS: ANEMIA 06/28/2009 KENAN HUTCHINSON, IBRAHIMA 648. 20 COMPLICATIONS: ANEMIA 06/28/2009 648.20 PRE GNANCY COMPLICATIONS: ANEMIA 06/28/2009 JEAN-CLAUDE VILLA DOA K 648.20 COMPLICATIONS: ANEMIA 06/28/2009 WILLIAM MADRIGAL APRNIDI A 648.20 COMPLICATIONS: ANEMIA 06/28/2009 ALLEN PIZARRO MING K 648.20 COMPLICATIONS: ANEMIA 06/28/2009 JEAN-CLAUDE VILLA DOA K 648.20 COMPLICATIONS: ANEMIA 06/28/2009 ONDINA MOISE APRN R 648.20 COMPLICATIONS: ANEMIA 06/28/2009 WILLIAM MADRIGAL APRNIDI A 648.20 COMPLICATIONS: ANEMIA 06/28/2009 WILLIAM MADRIGAL APRNIDI A 648.20 COMPLICATIONS: ANEMIA 06/28/2009 MING VILLA DO K 648.20 COMPLICATIONS: ANEMIA 06/28/2009 ONDINA MOISE APRN R 648.20 COMPLICATIONS: ANEMIA 06/28/2009 AB JORGE APRN 648.20 COMPLICATIONS: ANEMIA 06/28/2009 AB JORGE APRN 648.20 COMPLICATIONS: ANEMIA 07/12/2009 796.2 Elev ated Blood Pressure Reading Without Diagnosis Of Hypertension 07/12/2009 IBRAHIMA GRAYSON MD 796. 2 Elevated Blood Pressure Reading Without Diagnosis Of Hypertension 07/12/2009 796.2 Elev ated Blood Pressure Reading Without Diagnosis Of Hypertension 07/12/2009 JEAN-CLAUDE VILLA DOA K 796.2 Elevated Blood Pressure Reading Without Diagnosis Of Hypertension 07/12/2009 ROSALIA MADRIGAL APRN A 79 6.2 Elevated Blood Pressure Reading Without Diagnosis Of Hypertension 07/12/2009 MING VILLA DO K 796.2 Elevated Blood Pressure Reading Without Diagnosis Of Hypertension 07/12/2009 MING VILLA DO K 796.2 Elevated Blood Pressure Reading Without Diagnosis Of Hypertension 07/12/2009 ONDINA MOISE APRN R 796.2 Elevated Blood Pressure Reading Without Diagnosis Of H ypertension 07/12/2009 WILLIAM MADRIGAL APRNIDI A 79 6.2 Elevated Blood Pressure Reading Without Diagnosis Of Hypertension 07/12/2009 WILLIAM MADRIGAL APRNIDI A 79 6.2 Elevated Blood Pressure Reading Without Diagnosis Of Hypertension 07/12/2009 MING VILLA DO K 796.2 Elevated Blood Pressure Reading Without Diagnosis Of Hypertension 07/12/2009 ONDINA MOISE APRN R 796.2 Elevated Blood Pressure Reading Without Diagnosis Of H ypertension 07/12/2009 AB JORGE APRN 79 6.2 Elevated Blood Pressure Reading Without Diagnosis Of Hypertension 07/12/2009 AB JORGE APRN 79 6.2 Elevated Blood Pressure Reading Without Diagnosis Of Hypertension 07/13/2009 642.43 PRE GNANCY TOXEMIA - ANTEPARTUM CONDITION OR PRIOR COMP DELIV 07/13/2009 IBRAHIMA GRAYSON MD 642. 43 TOXEMIA - ANTEPARTUM CONDITION OR PRIOR COMP DELIV 07/13/2009 642.43 PRE GNANCY TOXEMIA - ANTEPARTUM CONDITION OR PRIOR COMP DELIV 07/13/2009 MING VILLA DO 642.43 TOXEMIA - ANTEPARTUM CONDITION OR PRIOR COMP DELIV 07/13/2009 ROSALIA MADRIGAL APRN A 642.43 TOXEMIA - ANTEPARTUM CONDITION OR PRIOR COMP DELIV 07/13/2009 MING VILLA DO 642.43 TOXEMIA - ANTEPARTUM CONDITION OR PRIOR COMP DELIV 07/13/2009 MING VILLA DO 642.43 TOXEMIA - ANTEPARTUM CONDITION OR PRIOR COMP DELIV 07/13/2009 ONDINA MOISE APRN R 642.43 TOXEMIA - ANTEPARTUM CONDITION OR PRIOR COMP DELIV 07/13/2009 ROSALIA MADRIGAL APRN A 642.43 TOXEMIA - ANTEPARTUM CONDITION OR PRIOR COMP DELIV 07/13/2009 ROSALIA MADRIGAL APRN A 642.43 TOXEMIA - ANTEPARTUM CONDITION OR PRIOR COMP DELIV 07/13/2009 MING VILLA DO 642.43 TOXEMIA - ANTEPARTUM CONDITION OR PRIOR COMP DELIV 07/13/2009 ONDINA MOISE APRN 642.43 TOXEMIA - ANTEPARTUM CONDITION OR PRIOR COMP DELIV 07/13/2009 AB JORGE APRN 642.43 TOXEMIA - ANTEPARTUM CONDITION OR PRIOR COMP DELIV 07/13/2009 AB JORGE APRN 642.43 TOXEMIA - ANTEPARTUM CONDITION OR PRIOR COMP DELIV 08/03/2009 V25.49 Secondary History Teacher ecologic Service Prescrip Of Contracept Agent - Repeat Rx 08/03/2009 IBRAHIMA GRAYSON MD V25. 49 Gynecologic Service Prescrip Of Contracept Agent - Repeat Rx 08/03/2009 V25.49 Secondary History Teacher ecologic Service Prescrip Of Contracept Agent - Repeat Rx 08/03/2009 MING VILLA DO V25.49 Gynecologic Service Prescrip Of Contracept Agent - Repeat Rx 08/03/2009 ROSALIA MADRIGAL APRN V25.49 Gynecologic Service Prescrip Of Contracept Agent - Rep eat Rx 08/03/2009 MING VILLA DO V25.49 Gynecologic Service Prescrip Of Contracept Agent - Repeat Rx 08/03/2009 MING VILLA DO V25.49 Gynecologic Service Prescrip Of Contracept Agent - Repeat Rx 08/03/2009 ONDINA MOISE APRN V25.49 Gynecologic Service Prescrip Of Contracept Agent - Rep eat Rx 08/03/2009 ROSALIA MADRIGAL APRN V25.49 Gynecologic Service Prescrip Of Contracept Agent - Rep eat Rx 08/03/2009 ROSALIA MADRIGAL APRN V25.49 Gynecologic Service Prescrip Of Contracept Agent - Rep eat Rx 08/03/2009 MING VILLA DO V25.49 Gynecologic Service Prescrip Of Contracept Agent - Repeat Rx 08/03/2009 ONDINA MOISE APRN V25.49 Gynecologic Service Prescrip Of Contracept Agent - Rep eat Rx 08/03/2009 AB JORGE APRN V25.49 Gynecologic Service Prescrip Of Contracept Agent - Rep eat Rx 08/03/2009 AB JORGE APRN V25.49 Gynecologic Service Prescrip Of Contracept Agent - Rep eat Rx 09/01/2009 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 09/01/2009 MING VILLA DO 674.50 CARDIOMYOPATHY DILATED 09/01/2009 ROSALIA MADRIGAL APRN A 674.50 CARDIOMYOPATHY DILATED 09/01/2009 MING VILLA DO 674.50 CARDIOMYOPATHY DILATED 09/01/2009 MING VILLA DO 674.50 CARDIOMYOPATHY DILATED 09/01/2009 ONDINA MOISE APRN 674.50 CARDIOMYOPATHY DILATED 09/01/2009 ROSALIA MADRIGAL APRN A 674.50 CARDIOMYOPATHY DILATED 09/01/2009 ROSALIA MADRIGAL APRN A 674.50 CARDIOMYOPATHY DILATED 09/01/2009 MING VILLA DO 674.50 CARDIOMYOPATHY DILATED 09/01/2009 ONDINA MOISE APRN 674.50 CARDIOMYOPATHY DILATED 09/01/2009 AB JORGE APRN 674.50 CARDIOMYOPATHY DILATED 09/01/2009 AB JORGE APRN 674.50 CARDIOMYOPATHY DILATED 09/09/2009 Ot 425.4 09/09/2009 Ot 458.29 09/09/2009 Ot E941.3 09/09/2009 Ot V58.69 11/23/2009 V04.81 Vac cines Prophylactic Need Against Influenza 11/23/2009 IBRAHIMA GRAYSON MD V04. 81 Vaccines Prophylactic Need Against Influenza 11/23/2009 V04.81 Vac cines Prophylactic Need Against Influenza 11/23/2009 VILLA DO, MING K V04.81 Vaccines Prophylactic Need Against Influenza 11/23/2009 ROAHN ASSOCIATE PROFESSOR OF ENGINEERING, ROSALIA A V04.81 Vaccines Prophylactic Need Against Influenza 11/23/2009 VILLA DO, MING K V04.81 Vaccines Prophylactic Need Against Influenza 11/23/2009 VILLA DO, MING K V04.81 Vaccines Prophylactic Need Against Influenza 11/23/2009 ONDINA MOISE APRN R V04.81 Vaccines Prophylactic Need Against Influenza 11/23/2009 ROHAN ASSOCIATE PROFESSOR OF ENGINEERING, ROSALIA A V04.81 Vaccines Prophylactic Need Against Influenza 11/23/2009 ROHAN ASSOCIATE PROFESSOR OF ENGINEERING, ROSALIA A V04.81 Vaccines Prophylactic Need Against Influenza 11/23/2009 VILLA DO, MING K V04.81 Vaccines Prophylactic Need Against Influenza 11/23/2009 ONDINA MOISE APRN R V04.81 Vaccines Prophylactic Need Against Influenza 11/23/2009 AB JORGE APRN V04.81 Vaccines Prophylactic Need Against Influenza 11/23/2009 AB JORGE APRN V04.81 Vaccines Prophylactic Need Against Influenza 01/10/2010 704.8 Foll iculitis 01/10/2010 IBRAHIMA GRAYSON MD 704. 8 Folliculitis 01/10/2010 704.8 Foll iculitis 01/10/2010 JEAN-CLAUDE VILLA DOA K 704.8 Folliculitis 01/10/2010 ROHAN APRN, ROSALIA A 70 4.8 Folliculitis 01/10/2010 VILLA JEAN-CLAUDE PIZARROA K 704.8 Folliculitis 01/10/2010 JEAN-CLAUDE VILLA DOA K 704.8 Folliculitis 01/10/2010 ONDINA MOISE APRN R 704.8 Folliculitis 01/10/2010 ROHAN CAIT, ROSALIA A 70 4.8 Folliculitis 01/10/2010 ROHAN CAIT, ROSALIA A 70 4.8 Folliculitis 01/10/2010 JEAN-CLAUDE VILLA DOA K 704.8 Folliculitis 01/10/2010 ONDINA MOISE APRN R 704.8 Folliculitis 01/10/2010 AB JORGE APRN 70 4.8 Folliculitis 01/10/2010 AB JORGE APRN 70 4.8 Folliculitis 02/23/2010 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 02/23/2010 ROHANAdilson CHAVIRA ROSALIA A 21 4.9 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 07/06/2010 MING VILLA DO 296.90 MOOD DISORDER 07/06/2010 ROHANYOUNG CHAVIRA ROSALIA A 296.90 MOOD DISORDER 07/06/2010 MING VILLA DO K 296.90 MOOD DISORDER 07/06/2010 JEAN-CLAUDE VILLA DOA K 296.90 MOOD DISORDER 07/06/2010 ONDINA MOISE APRN R 296.90 MOOD DISORDER 07/06/2010 ROHANAdilson CHAVIRA ROSALIA A 296.90 MOOD DISORDER 07/06/2010 ROHANAdilson CHAVIRA ROSALIA A 296.90 MOOD DISORDER 07/06/2010 VILLA DO MING K 296.90 MOOD DISORDER 07/06/2010 ONDINA MOISE APRN R 296.90 MOOD DISORDER 07/06/2010 AB JORGE APRN 296.90 MOOD DISORDER 07/06/2010 AB JORGE APRN 296.90 MOOD DISORDER 09/16/2010 V72.41 PRE GNANCY TEST NEGATIVE RESULT 09/16/2010 IBRAHIMA GRAYSON MD V72. 41 TEST NEGATIVE RESULT 09/16/2010 V72.41 PRE GNANCY TEST NEGATIVE RESULT 09/16/2010 VILLA DO MING K V72.41 TEST NEGATIVE RESULT 09/16/2010 ROHAN CHAVIRA ROSALIA A V72.41 TEST NEGATIVE RESULT 09/16/2010 VILLA DO MING K V72.41 TEST NEGATIVE RESULT 09/16/2010 VILLA DO MING K V72.41 TEST NEGATIVE RESULT 09/16/2010 ONDINA MOISE APRN R V72.41 TEST NEGATIVE RESULT 09/16/2010 WILLIAM MADRIGAL APRNIDI A V72.41 TEST NEGATIVE RESULT 09/16/2010 WILLIAM MADRIGAL APRNIDI A V72.41 TEST NEGATIVE RESULT 09/16/2010 VILLA DO MING K V72.41 TEST NEGATIVE RESULT 09/16/2010 ONDINA MOISE APRN R V72.41 TEST NEGATIVE RESULT 09/16/2010 AB JORGE APRN T V72.41 TEST NEGATIVE RESULT 09/16/2010 AB JORGE APRN V72.41 TEST NEGATIVE RESULT 12/19/2010 461.9 SINU SITIS ACUTE 12/19/2010 IBRAHIMA GRAYSON MD 461. 9 SINUSITIS ACUTE 12/19/2010 461.9 SINU SITIS ACUTE 12/19/2010 VILLA DO MING K 461.9 SINUSITIS ACUTE 12/19/2010 ROSALIA MADRIGAL APRN A 46 1.9 SINUSITIS ACUTE 12/19/2010 VILLA DO MING K 461.9 SINUSITIS ACUTE 12/19/2010 VILLA DO MING K 461.9 SINUSITIS ACUTE 12/19/2010 ONDINA MOISE APRN R 461.9 SINUSITIS ACUTE 12/19/2010 ROSALIA MADRIGAL APRN A 46 1.9 SINUSITIS ACUTE 12/19/2010 ROSALIA MADRIGAL APRN A 46 1.9 SINUSITIS ACUTE 12/19/2010 MING VILLA DO K 461.9 SINUSITIS ACUTE 12/19/2010 ONDINA MOISE APRN 461.9 SINUSITIS ACUTE 12/19/2010 AB JORGE APRN 46 1.9 SINUSITIS ACUTE 12/19/2010 AB JORGE APRN 46 1.9 SINUSITIS ACUTE 01/02/2011 V25.2 Tuba l Ligation 01/02/2011 IBRAHIMA GRAYSON MD V25. 2 Tubal Ligation 01/02/2011 V25.2 Tuba l Ligation 01/02/2011 JEAN-CLAUDE VILLA DOA K V25.2 Tubal Ligation 01/02/2011 ROSALIA MADRIGAL APRN A V2 5.2 Tubal Ligation 01/02/2011 JEAN-CLAUDE VILLA DOA K V25.2 Tubal Ligation 01/02/2011 JEAN-CLAUDE VILLA DOA K V25.2 Tubal Ligation 01/02/2011 ONDINA MOISE APRN R V25.2 Tubal Ligation 01/02/2011 ROSALIA MADRIGAL APRN A V2 5.2 Tubal Ligation 01/02/2011 WILLIAM MADRIGAL APRNIDI A V2 5.2 Tubal Ligation 01/02/2011 MING VILLA DO K V25.2 Tubal Ligation 01/02/2011 ONDINA MOISE APRN R V25.2 Tubal Ligation 01/02/2011 AB JORGE APRN V2 5.2 Tubal Ligation 01/02/2011 AB JORGE APRN V2 5.2 Tubal Ligation 01/13/2011 Ot 275.2 01/13/2011 Ot 276.8 01/13/2011 Ot 278.00 01/13/2011 Ot 288.60 01/13/2011 Ot 305.1 01/13/2011 Ot 327.23 01/13/2011 Ot 424.0 01/13/2011 Ot 428.0 01/13/2011 Ot 428.23 01/13/2011 Ot 493.90 01/13/2011 Ot 518.51 01/13/2011 Ot 790.29 01/13/2011 Ot V15.81 01/13/2011 Ot V85.41 01/23/2011 V04.81 Vac cines Prophylactic Need Against Influenza 01/23/2011 V26.51 Vis it For: Tubal Ligation Status 01/23/2011 IBRAHIMA GRAYSON MD V04. 81 Vaccines Prophylactic Need Against Influenza 01/23/2011 IBRAHIMA GRAYSON MD V26. 51 Visit For: Tubal Ligation Status 01/23/2011 V04.81 Vac cines Prophylactic Need Against Influenza 01/23/2011 V26.51 Vis it For: Tubal Ligation Status 01/23/2011 ALLEN PIZARRO MING K V04.81 Vaccines Prophylactic Need Against Influenza 01/23/2011 JEAN-CLAUDE VILLA DOA K V26.51 Visit For: Tubal Ligation Status 01/23/2011 ROHAN ASSOCIATE PROFESSOR OF ENGINEERING, ROSALIA A V04.81 Vaccines Prophylactic Need Against Influenza 01/23/2011 ROHAN ASSOCIATE PROFESSOR OF ENGINEERING, ROSALIA A V26.51 Visit For: Tubal Ligation Status 01/23/2011 ALLEN PIZARRO MING K V04.81 Vaccines Prophylactic Need Against Influenza 01/23/2011 JEAN-CLAUDE VILLA DOA K V26.51 Visit For: Tubal Ligation Status 01/23/2011 ALLEN PIZARRO MING K V04.81 Vaccines Prophylactic Need Against Influenza 01/23/2011 JEAN-CLAUDE VILLA DOA K V26.51 Visit For: Tubal Ligation Status 01/23/2011 SUMA CHAVIRA, ONDINA R V04.81 Vaccines Prophylactic Need Against Influenza 01/23/2011 SUMA CHAVIRA ONDINA R V26.51 Visit For: Tubal Ligation Status 01/23/2011 ROHAN ASSOCIATE PROFESSOR OF ENGINEERING, ROSALIA A V04.81 Vaccines Prophylactic Need Against Influenza 01/23/2011 ROHAN ASSOCIATE PROFESSOR OF ENGINEERING, ROSALIA A V26.51 Visit For: Tubal Ligation Status 01/23/2011 ROHAN ASSOCIATE PROFESSOR OF ENGINEERING, ROSALIA A V04.81 Vaccines Prophylactic Need Against Influenza 01/23/2011 ROHAN ASSOCIATE PROFESSOR OF ENGINEERING, ROSALIA A V26.51 Visit For: Tubal Ligation Status 01/23/2011 ALLEN PIZARRO MING K V04.81 Vaccines Prophylactic Need Against Influenza 01/23/2011 JEAN-CLAUDE VILLA DOA K V26.51 Visit For: Tubal Ligation Status 01/23/2011 SUMA CHAVIRA, ONDINA R V04.81 Vaccines Prophylactic Need Against Influenza 01/23/2011 MEGAN MOISE APRNRICIA R V26.51 Visit For: Tubal Ligation Status 01/23/2011 AB JORGE APRN V04.81 Vaccines Prophylactic Need Against Influenza 01/23/2011 AB JORGE APRN V26.51 Visit For: Tubal Ligation Status 01/23/2011 AB JORGE APRN V04.81 Vaccines Prophylactic Need Against Influenza 01/23/2011 AB JORGE APRN V26.51 Visit For: Tubal Ligation Status 03/28/2011 Ot 729.1 03/28/2011 Ot 786.50 03/28/2011 Ot 786.52 03/28/2011 Ot 787.03 03/28/2011 Ot 787.91 08/21/2011 272.4 HYPE RLIPIDEMIA 08/21/2011 782.3 EDEMA 08/21/2011 IBRAHIMA GRAYSON MD 272. 4 HYPERLIPIDEMIA 08/21/2011 IBRAHIMA GRAYSON MD 782. 3 EDEMA 08/21/2011 272.4 HYPE RLIPIDEMIA 08/21/2011 782.3 Edema 08/21/2011 VILLA DO, MIGN K 272.4 HYPERLIPIDEMIA 08/21/2011 VILLA DO, MING K 782.3 Edema 08/21/2011 ROHAN ASSOCIATE PROFESSOR OF ENGINEERING, ROSALIA A 27 2.4 HYPERLIPIDEMIA 08/21/2011 ROHAN ASSOCIATE PROFESSOR OF ENGINEERING, ROSALIA A 78 2.3 Edema 08/21/2011 VILLA DO, MING K 272.4 HYPERLIPIDEMIA 08/21/2011 VILLA DO, MING K 782.3 Edema 08/21/2011 VILLA DO, MING K 272.4 HYPERLIPIDEMIA 08/21/2011 VILLA DO, MING K 782.3 Edema 08/21/2011 MOISE ASSOCIATE PROFESSOR OF ENGINEERING, ONDINA R 272.4 HYPERLIPIDEMIA 08/21/2011 SUMA CHAVIRA, ONDINA R 782.3 Edema 08/21/2011 ROHAN ASSOCIATE PROFESSOR OF ENGINEERING, ROSALIA A 27 2.4 HYPERLIPIDEMIA 08/21/2011 ROHAN ASSOCIATE PROFESSOR OF ENGINEERING, ROSALIA A 78 2.3 Edema 08/21/2011 ROHAN ASSOCIATE PROFESSOR OF ENGINEERING, ROSALIA A 27 2.4 HYPERLIPIDEMIA 08/21/2011 ROHAN ASSOCIATE PROFESSOR OF ENGINEERING, ROSALIA A 78 2.3 Edema 08/21/2011 VILLA DO, MING K 272.4 HYPERLIPIDEMIA 08/21/2011 VILLA DO, MING K 782.3 Edema 08/21/2011 SUMA CHAVIRA, ONDINA R 272.4 HYPERLIPIDEMIA 08/21/2011 SUMA PEREAN, ONDINA R 782.3 Edema 08/21/2011 AB JORGE APRN T 27 2.4 HYPERLIPIDEMIA 08/21/2011 AB JORGE APRN 78 2.3 Edema 08/21/2011 AB JORGE APRN 27 2.4 HYPERLIPIDEMIA 08/21/2011 AB JORGE APRN T 78 2.3 Edema 08/23/2011 268.9 GEETHA MIN D DEFICIENCY 08/23/2011 IBRAHIMA GRAYSON MD 268. 9 VITAMIN D DEFICIENCY 08/23/2011 268.9 GEETHA MIN D DEFICIENCY 08/23/2011 VILLA DO, MING K 268.9 VITAMIN D DEFICIENCY 08/23/2011 WILLIAM MADRIGAL APRNIDI A 26 8.9 VITAMIN D DEFICIENCY 08/23/2011 VILLA DO, MING K 268.9 VITAMIN D DEFICIENCY 08/23/2011 VILLA DO, MING K 268.9 VITAMIN D DEFICIENCY 08/23/2011 MEGAN MOISE APRNRICIA R 268.9 VITAMIN D DEFICIENCY 08/23/2011 ROSALIA MADRIGAL APRN A 26 8.9 VITAMIN D DEFICIENCY 08/23/2011 ROSALIA MADRIGAL APRN A 26 8.9 VITAMIN D DEFICIENCY 08/23/2011 VILLA DO, MING K 268.9 VITAMIN D DEFICIENCY 08/23/2011 MEGAN MOISE APRNRICIA R 268.9 VITAMIN D DEFICIENCY 08/23/2011 AB JORGE APRN 26 8.9 VITAMIN D DEFICIENCY 08/23/2011 AB JORGE APRN 26 8.9 VITAMIN D DEFICIENCY 09/27/2011 110.5 DERM ATOPHYTOSIS TINEA CORPORIS 09/27/2011 132.0 PEDI CULOSIS CAPITIS 09/27/2011 IBRAHIMA GRAYSON MD 110. 5 DERMATOPHYTOSIS TINEA CORPORIS 09/27/2011 IBRAHIMA GRAYSON MD 132. 0 PEDICULOSIS CAPITIS 09/27/2011 110.5 Derm atophytosis Tinea Corporis 09/27/2011 132.0 Pedi culosis Capitis 09/27/2011 VILLA DO MING K 110.5 Dermatophytosis Tinea Corporis 09/27/2011 VILLA DO, MING K 132.0 Pediculosis Capitis 09/27/2011 ROSALIA MADRIGAL APRN A 11 0.5 Dermatophytosis Tinea Corporis 09/27/2011 ROSALIA MADRIGAL APRN A 13 2.0 Pediculosis Capitis 09/27/2011 VILLA DO, MING K 110.5 Dermatophytosis Tinea Corporis 09/27/2011 VILLA DO, MING K 132.0 Pediculosis Capitis 09/27/2011 VILLA DO, MING K 110.5 Dermatophytosis Tinea Corporis 09/27/2011 VILLA DO, MING K 132.0 Pediculosis Capitis 09/27/2011 MEGAN MOISE APRNRICIA R 110.5 Dermatophytosis Tinea Corporis 09/27/2011 MOISE ASSOCIATE PROFESSOR OF ENGINEERING, ONDINA R 132.0 Pediculosis Capitis 09/27/2011 ROHAN ASSOCIATE PROFESSOR OF ENGINEERING, ROSALIA A 11 0.5 Dermatophytosis Tinea Corporis 09/27/2011 ROHAN ASSOCIATE PROFESSOR OF ENGINEERING, ROSALIA A 13 2.0 Pediculosis Capitis 09/27/2011 ROHAN ASSOCIATE PROFESSOR OF ENGINEERING, ROSALIA A 11 0.5 Dermatophytosis Tinea Corporis 09/27/2011 ROHAN ASSOCIATE PROFESSOR OF ENGINEERING, ROSALIA A 13 2.0 Pediculosis Capitis 09/27/2011 VILLA DO, MING K 110.5 Dermatophytosis Tinea Corporis 09/27/2011 VILLA DO, MING K 132.0 Pediculosis Capitis 09/27/2011 MEGAN MOISE APRNRICIA R 110.5 Dermatophytosis Tinea Corporis 09/27/2011 SUMA CHAVIRA ONDINA R 132.0 Pediculosis Capitis 09/27/2011 AB JORGE APRN 11 0.5 Dermatophytosis Tinea Corporis 09/27/2011 AB JORGE APRN 13 2.0 Pediculosis Capitis 09/27/2011 AB JORGE APRN 11 0.5 Dermatophytosis Tinea Corporis 09/27/2011 AB JORGE APRN 13 2.0 Pediculosis Capitis 04/10/2012 V04.81 FLU DX (3 YRS AND ABOVE, IM) 04/10/2012 VILLA DO, MING K V04.81 FLU DX (3 YRS AND ABOVE, IM) 04/10/2012 ROHAN APRN, ROSALIA A V04.81 FLU DX (3 YRS AND ABOVE, IM) 04/10/2012 VILLA DO MING K V04.81 FLU DX (3 YRS AND ABOVE, IM) 04/10/2012 VILLA DO MING K V04.81 FLU DX (3 YRS AND ABOVE, IM) 04/10/2012 CHARLEY MOISE APRNIA R V04.81 FLU DX (3 YRS AND ABOVE, IM) 04/10/2012 WILLIAM MADRIGAL APRNIDI A V04.81 FLU DX (3 YRS AND ABOVE, IM) 04/10/2012 ROHAN PEREAN, ROSALIA A V04.81 FLU DX (3 YRS AND ABOVE, IM) 04/10/2012 ALLEN PIZARRO MING K V04.81 FLU DX (3 YRS AND ABOVE, IM) 04/10/2012 MOISE ASSOCIATE PROFESSOR OF ENGINEERINGCHARLEY De AndaIA R V04.81 FLU DX (3 YRS AND ABOVE, IM) 04/10/2012 LUISITO CHAVIRAAB T V04.81 FLU DX (3 YRS AND ABOVE, IM) 04/10/2012 LUISITO PEREAAB De Anda V04.81 FLU DX (3 YRS AND ABOVE, IM) 05/13/2012 WILLIAM MADRIGAL APRNIDI A 278.00 OBESITY 05/13/2012 WILLIAM MADRIGAL APRNIDI A 30 5.1 TOBACCO ABUSE 05/13/2012 WILLIAM MADRIGAL APRNIDI A V7 4.5 STD SCREEN 05/13/2012 WILLIAM MADRIGAL APRNIDI A V7 6.2 CERVICAL CANCER SCREENING (PAP SMEAR) 05/13/2012 VILLA DO, MING K 278.00 OBESITY 05/13/2012 VILLA DO, MIGN K 305.1 TOBACCO ABUSE 05/13/2012 VILLA DO, MING K V74.5 STD SCREEN 05/13/2012 VILLA , MING K V76.2 CERVICAL CANCER SCREENING (PAP SMEAR) 05/13/2012 VILLA DO, MING K 278.00 OBESITY 05/13/2012 VILLA DO, MING K 305.1 TOBACCO ABUSE 05/13/2012 VILLA DO, MING K V74.5 STD SCREEN 05/13/2012 VILLA DO, MING K V76.2 CERVICAL CANCER SCREENING (PAP SMEAR) 05/13/2012 MEGAN MOISE APRNRICIA R 278.00 OBESITY 05/13/2012 MEGAN MOISE APRNRICIA R 305.1 TOBACCO ABUSE 05/13/2012 CHARLEY MOISE APRNIA R V74.5 STD SCREEN 05/13/2012 MEGAN MOISE APRNRICIA R V76.2 CERVICAL CANCER SCREENING (PAP SMEAR) 05/13/2012 ROHAN CHAVIRA, ROSALIA A 278.00 OBESITY 05/13/2012 ROHAN CHAVIRA, ROSALIA A 30 5.1 TOBACCO ABUSE 05/13/2012 ROHAN CHAVIRA, ROSALIA A V7 4.5 STD SCREEN 05/13/2012 WILLIAM MADRIGAL APRNIDI A V7 6.2 CERVICAL CANCER SCREENING (PAP SMEAR) 05/13/2012 ROHAN CHAVIRA, ROSALIA A 278.00 OBESITY 05/13/2012 ROHAN PEREAN, ROSALIA A 30 5.1 TOBACCO ABUSE 05/13/2012 ROHAN CHAVIRA, ROSALIA A V7 4.5 STD SCREEN 05/13/2012 WILLIAM MADRIGAL APRNIDI A V7 6.2 CERVICAL CANCER SCREENING (PAP SMEAR) 05/13/2012 ALLEN PIZARRO MING K 278.00 OBESITY 05/13/2012 ALLEN PIZARRO MING K 305.1 TOBACCO ABUSE 05/13/2012 JEAN-CLAUDE VILLA DOA K V74.5 STD SCREEN 05/13/2012 ALLEN PIZARRO MING K V76.2 CERVICAL CANCER SCREENING (PAP SMEAR) 05/13/2012 CHARLEY MOISE APRNIA R 278.00 OBESITY 05/13/2012 CHARLEY MOISE APRNIA R 305.1 TOBACCO ABUSE 05/13/2012 CHARLEY MOISE APRNIA R V74.5 STD SCREEN 05/13/2012 MEGAN MOISE APRNRICIA R V76.2 CERVICAL CANCER SCREENING (PAP SMEAR) 05/13/2012 AB JORGE APRN 278.00 OBESITY 05/13/2012 AB JORGE APRN 30 5.1 TOBACCO ABUSE 05/13/2012 AB JORGE APRN V7 4.5 STD SCREEN 05/13/2012 AB JORGE APRN V7 6.2 CERVICAL CANCER SCREENING (PAP SMEAR) 05/13/2012 AB JORGE APRN T 278.00 OBESITY 05/13/2012 AB JORGE APRN 30 5.1 TOBACCO ABUSE 05/13/2012 AB JORGE APRN V7 4.5 STD SCREEN 05/13/2012 AB JORGE APRN V7 6.2 CERVICAL CANCER SCREENING (PAP SMEAR) 01/06/2013 JEAN-CLAUDE VILLA DOA K 493.90 ASTHMA UNSPECIFIED 01/06/2013 JEAN-CLAUDE VILLA DOA K V03.82 PPV23 (PNEUMOVAX) DX 01/06/2013 VILLA DO MING K V65.42 COUNSELING - SMOKING CESSATION 01/06/2013 ONDINA MOISE APRN R 493.90 ASTHMA UNSPECIFIED 01/06/2013 ONDINA MOISE APRN R V03.82 PPV23 (PNEUMOVAX) DX 01/06/2013 ONDINA MOISE APRN R V65.42 COUNSELING - SMOKING CESSATION 01/06/2013 ROHAN ASSOCIATE PROFESSOR OF ENGINEERING ROSALIA A 493.90 ASTHMA UNSPECIFIED 01/06/2013 ROHAN ASSOCIATE PROFESSOR OF ENGINEERING, ROSALIA A V03.82 PPV23 (PNEUMOVAX) DX 01/06/2013 ROHAN ASSOCIATE PROFESSOR OF ENGINEERING, ROSALIA A V65.42 COUNSELING - SMOKING CESSATION 01/06/2013 ROHAN ASSOCIATE PROFESSOR OF ENGINEERING, ROSALIA A 493.90 ASTHMA UNSPECIFIED 01/06/2013 ROHAN ASSOCIATE PROFESSOR OF ENGINEERING, ROSALIA A V03.82 PPV23 (PNEUMOVAX) DX 01/06/2013 ROHAN ASSOCIATE PROFESSOR OF ENGINEERINGROSALIA De Anda A V65.42 COUNSELING - SMOKING CESSATION 01/06/2013 ALLEN JEAN-CLAUDE PIZARROA K 493.90 ASTHMA UNSPECIFIED 01/06/2013 ALLEN PIZARRO MING K V03.82 PPV23 (PNEUMOVAX) DX 01/06/2013 VILLA DO MING K V65.42 COUNSELING - SMOKING CESSATION 01/06/2013 ONDINA MOISE APRN R 493.90 ASTHMA UNSPECIFIED 01/06/2013 ONDINA MOISE APRN V03.82 PPV23 (PNEUMOVAX) DX 01/06/2013 ONDINA MOISE APRN V65.42 COUNSELING - SMOKING CESSATION 01/06/2013 AB JORGE APRN 493.90 ASTHMA UNSPECIFIED 01/06/2013 AB JORGE APRN V03.82 PPV23 (PNEUMOVAX) DX 01/06/2013 BA JORGE APRN V65.42 COUNSELING - SMOKING CESSATION 01/06/2013 AB JORGE APRN 493.90 ASTHMA UNSPECIFIED 01/06/2013 AB JORGE APRN V03.82 PPV23 (PNEUMOVAX) DX 01/06/2013 AB JORGE APRN V65.42 COUNSELING - SMOKING CESSATION 03/13/2013 ONDINA MOISE APRN 727.49 OTHER GANGLION AND CYST OF SYNOVIUM TENDON AND BURSA 03/13/2013 ONDINA MOISE APRN R 919.4 INSECT BITE NONVENOMOUS OF OTHER MULTIPL E AND UNSPECIFIED SITES WITHOUT INFECTION 03/13/2013 ROSALIA MADRIGAL APRN A 727.49 OTHER GANGLION AND CYST OF SYNOVIUM TENDON AND BURSA 03/13/2013 ROHANROSALIA De Anda APRN A 91 9.4 INSECT BITE NONVENOMOUS OF OTHER MULTIPLE AND UNSPECIFIED SITES WITHOUT INFECTION 03/13/2013 ROSALIA MADRIGAL APRN A 727.49 OTHER GANGLION AND CYST OF SYNOVIUM TENDON AND BURSA 03/13/2013 ROHANROSALIA De Anda APRN A 91 9.4 INSECT BITE NONVENOMOUS OF OTHER MULTIPLE AND UNSPECIFIED SITES WITHOUT INFECTION 03/13/2013 MING VILLA DO K 727.49 OTHER GANGLION AND CYST OF SYNOVIUM TENDON AND BURSA 03/13/2013 MING VILLA DO K 919.4 INSECT BITE NONVENOMOUS OF OTHER MULTIPLE AND UNSPECIFIED SITES WITHOUT INFECTION 03/13/2013 ONDINA MOISE APRN R 727.49 OTHER GANGLION AND CYST OF SYNOVIUM TENDON AND BURSA 03/13/2013 ONIDNA MOISE APRN R 919.4 INSECT BITE NONVENOMOUS OF OTHER MULTIPL E AND UNSPECIFIED SITES WITHOUT INFECTION 03/13/2013 AB JORGE APRN 727.49 OTHER GANGLION AND CYST OF SYNOVIUM TENDON AND BURSA 03/13/2013 AB JORGE APRN 91 9.4 INSECT BITE NONVENOMOUS OF OTHER MULTIPLE AND UNSPECIFIED SITES WITHOUT INFECTION 03/13/2013 AB JORGE APRN 727.49 OTHER GANGLION AND CYST OF SYNOVIUM TENDON AND BURSA 03/13/2013 AB JORGE APRN 91 9.4 INSECT BITE NONVENOMOUS OF OTHER MULTIPLE AND UNSPECIFIED SITES WITHOUT INFECTION 05/26/2013 ROSALIA MADRIGAL APRN A 59 9.0 URINARY TRACT INFECTION 05/26/2013 ROSALIA MADRIGAL APRN A 59 9.0 URINARY TRACT INFECTION 05/26/2013 MING VILLA DO K 599.0 URINARY TRACT INFECTION 05/26/2013 ONDINA MOISE APRN R 599.0 URINARY TRACT INFECTION 05/26/2013 AB JORGE APRN 59 9.0 URINARY TRACT INFECTION 05/26/2013 AB OJRGE APRN 59 9.0 URINARY TRACT INFECTION 07/07/2013 MICH TAVAREZ DO Ot 493.92 ASTHMA, UNSPECIFIED, W (ACUTE) EXACERBAT 07/07/2013 MICH TAVAREZ DO Ot 786.50 CHEST PAIN NOS 10/08/2013 SUMA PEREANONDINA R 786.2 COUGH 10/08/2013 AB JORGE APRN T 78 6.2 COUGH 10/08/2013 AB JORGE APRN T 78 6.2 COUGH 02/20/2015 Ot 428.0 02/20/2015 Ot 428.0 02/20/2015 Ot 397.0 02/20/2015 Ot 428.0 02/20/2015 Ot 397.0 02/20/2015 Ot 424.0 02/20/2015 Ot 428.0 02/20/2015 Ot 428.0 02/20/2015 IVETH VILLARREAL MD Ot 397. 0 02/20/2015 IVETH VILLARREAL MD Ot 424. 0 02/20/2015 IVETH VILLARREAL MD Ot 428. 0 02/20/2015 GENEVIEVE HUTCHINSON, INDRA Logan Ot J40 BRONCHITIS, NOT SPECIFIED ACUTE OR CH 03/14/2018 IVETH VILLARREAL MD Ot 397. 0 TRICUSPID VALVE DISEASE 03/14/2018 IVETH VILLARREAL MD Ot 424. 0 MITRAL VALVE DISORDER 03/14/2018 IVETH VILLARREAL MD Ot 428. 0 CONGESTIVE HEART FAILURE NOS 03/14/2018 IVETH VILLARREAL MD Ot 397. 0 TRICUSPID VALVE DISEASE 03/14/2018 IVETH VILLARREAL MD Ot 424. 0 MITRAL VALVE DISORDER 03/14/2018 IVETH VILLARREAL MD Ot 428. 0 CONGESTIVE HEART FAILURE NOS 03/16/2018 WHIT CEDENO MD Ot E66 .9 OBESITY, UNSPECIFIED 03/16/2018 WHIT CEDENO MD Ot E78 .5 HYPERLIPIDEMIA, UNSPECIFIED 03/16/2018 WHIT CEDENO MD Ot F17.210 NICOTINE DEPENDENCE, CIGARETTES, UNCOMPL 03/16/2018 WHIT CEDENO MD Ot I11 .0 HYPERTENSIVE HEART DISEASE WITH HEART FA 03/16/2018 WHIT CEDENO MD Ot I42 .9 CARDIOMYOPATHY, UNSPECIFIED 03/16/2018 WHIT CEDENO MD Ot I49 .3 VENTRICULAR PREMATURE DEPOLARIZATION 03/16/2018 WHIT CEDENO MD, Ot I50.23 ACUTE ON CHRONIC SYSTOLIC (CONGESTIVE) H 03/16/2018 WHIT CEDENO MD Ot I95 .2 HYPOTENSION DUE TO DRUGS 03/16/2018 WHIT CEDENO MD, Ot J18 .9 PNEUMONIA, UNSPECIFIED ORGANISM 03/16/2018 WHIT CEDENO MD, Ot J45.909 UNSPECIFIED ASTHMA, UNCOMPLICATED 03/16/2018 WHIT CEDENO MD Ot K80.20 CALCULUS OF GALLBLADDER W/O CHOLECYSTITI 03/16/2018 WHIT CEDENO MD Ot N39 .0 URINARY TRACT INFECTION, SITE NOT SPECIF 03/16/2018 WHIT CEDENO MD, Ot Z68.41 BODY MASS INDEX (BMI) 40.0-44.9, ADULT 03/16/2018 WHIT CEDENO MD Ot Z91.14 PATIENT'S OTHER NONCOMPLIANCE WITH MEDIC 03/18/2018 IVETH VILLARREAL MD Ot 397. 0 TRICUSPID VALVE DISEASE 03/18/2018 IVETH VILLARREAL MD Ot 424. 0 MITRAL VALVE DISORDER 03/18/2018 IVETH VILLARREAL MD J Ot 428. 0 CONGESTIVE HEART FAILURE NOS 03/18/2018 IVETH VILLARREAL MD J Ot 397. 0 TRICUSPID VALVE DISEASE 03/18/2018 IVETH VILLARREAL MD Ot 424. 0 MITRAL VALVE DISORDER 03/18/2018 IVETH VILLARREAL MD Ot 428. 0 CONGESTIVE HEART FAILURE NOS 04/03/2018 IVETH VILLARREAL MD Ot 397. 0 TRICUSPID VALVE DISEASE 04/03/2018 IVETH VILLARREAL MD Ot 424. 0 MITRAL VALVE DISORDER 04/03/2018 IVETH VILLARREAL MD Ot 428. 0 CONGESTIVE HEART FAILURE NOS 04/23/2018 MINI DONOHUE APRN Ot G47.10 HYPERSOMNIA, UNSPECIFIED 04/23/2018 MINI DONOHUE APRN Ot I50.9 HEART FAILURE, UNSPECIFIED 04/23/2018 MINI DONOHUE APRN Ot R94.30 ABNORMAL RESULT OF CARDIOVASCULAR FUNCTI 04/23/2018 MINI DONOHUE APRN Ot Z72.0 TOBACCO USE 04/23/2018 IVETH VILLARREAL MD Ot 397. 0 TRICUSPID VALVE DISEASE 04/23/2018 IVETH VILLARREAL MD Ot 424. 0 MITRAL VALVE DISORDER 04/23/2018 IVETH VILLARREAL MD Ot 428. 0 CONGESTIVE HEART FAILURE NOS 04/24/2018 MINI DONOHUE ASSOCIATE PROFESSOR OF ENGINEERING Ot G47.10 HYPERSOMNIA, UNSPECIFIED 04/24/2018 MINI DONOHUE ASSOCIATE PROFESSOR OF ENGINEERING Ot I50.9 HEART FAILURE, UNSPECIFIED 04/24/2018 MINI DONOHUE ASSOCIATE PROFESSOR OF ENGINEERING Ot R94.30 ABNORMAL RESULT OF CARDIOVASCULAR FUNCTI 04/24/2018 MINI DONOHUE ASSOCIATE PROFESSOR OF ENGINEERING Ot Z72.0 TOBACCO USE 05/03/2018 IVETH VILLARREAL MD Ot 397. 0 TRICUSPID VALVE DISEASE 05/03/2018 IVETH VILLARREAL MD Ot 424. 0 MITRAL VALVE DISORDER 05/03/2018 IVETH VILLARREAL MD Ot 428. 0 CONGESTIVE HEART FAILURE NOS 05/04/2018 MINI DONOHUE ASSOCIATE PROFESSOR OF ENGINEERING Ot G47.10 HYPERSOMNIA, UNSPECIFIED 05/04/2018 MINI DONOHUE ASSOCIATE PROFESSOR OF ENGINEERING Ot I50.9 HEART FAILURE, UNSPECIFIED 05/04/2018 MINI DONOHUE ASSOCIATE PROFESSOR OF ENGINEERING Ot R94.30 ABNORMAL RESULT OF CARDIOVASCULAR FUNCTI 05/04/2018 MARNIE DONOHUEINE Michelle ASSOCIATE PROFESSOR OF ENGINEERING Ot Z72.0 TOBACCO USE 05/30/2018 IVETH VILLARREAL MD Ot 397. 0 TRICUSPID VALVE DISEASE 05/30/2018 IVETH VILLARREAL MD Ot 424. 0 MITRAL VALVE DISORDER 05/30/2018 IVETH VILLARREAL MD J Ot 428. 0 CONGESTIVE HEART FAILURE NOS 06/26/2018 IVETH VILLARREAL MD Ot 397. 0 TRICUSPID VALVE DISEASE 06/26/2018 IVETH VILLARREAL MD Ot 424. 0 MITRAL VALVE DISORDER 06/26/2018 IVETH VILLARREAL MD J Ot 428. 0 CONGESTIVE HEART FAILURE NOS 06/26/2018 IVETH VILLARREAL MD Ot I08. 1 RHEUMATIC DISORDERS OF BOTH MITRAL AND T 06/26/2018 IVETH VILLARREAL MD Ot I42. 8 OTHER CARDIOMYOPATHIES 06/27/2018 IVETH VILLARREAL MD Ot I08. 1 RHEUMATIC DISORDERS OF BOTH MITRAL AND T 06/27/2018 IVETH VILLARREAL MD Ot I42. 8 OTHER CARDIOMYOPATHIES 07/10/2018 IVETH VILLARREAL MD Ot I08. 1 RHEUMATIC DISORDERS OF BOTH MITRAL AND T 07/10/2018 IVETH VILLARREAL MD Ot I42. 8 OTHER CARDIOMYOPATHIES 07/10/2018 IVETH VILLARREAL MD Ot I08. 1 RHEUMATIC DISORDERS OF BOTH MITRAL AND T 07/10/2018 IVETH VILLARREAL MD Ot I42. 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 06/04/2019 Ot 642.43 MIL D/NOS PREECLAMP-ANTEP Procedures Code Description [place] [address] ROUT INE VENIPUNCTURE 05/07/2012 00971 LIVE R PANEL (LFT) 05/07/2012 45580 LIPI D PANEL 05/07/2012 49629 GEETHA MIN D 25-HYDROXY (D2,D3, TOTAL) 05/07/2012 86680 TRIC HOMONAS (IN-HOUSE) 05/13/2012 93971 CULT URE UROGENITAL 05/13/2012 43065 GC/C HLAM PROBE (STATE) 05/13/2012 26920 PAP SMEAR 05/13/2012 Q0091 PAP SMEAR OBTAIN SMEAR 05/13/2012 78688 ROUT INE VENIPUNCTURE 08/02/2012 28998 CMP 08/02/2012 50652 LIPI D PANEL 08/02/2012 [id number] GF R CALC (RESULT ONLY) 08/02/2012 00887 GEETHA MIN D 25-HYDROXY (D2,D3, TOTAL) 08/05/2012 1038F PERS ISTENT ASTHMA 01/06/2013 54368 ECHO 2D 02/20/2013 87195 UA W / CULTURE IF INDICATED 05/26/2013 91917 CULT URE URINE 05/27/2013 81939 ROUT INE VENIPUNCTURE 11/17/2013 52156 GEETHA MIN D 25-HYDROXY (D2,D3, TOTAL) 11/17/2013 13036 TSH 11/17/2013 28831 CMP 11/17/2013 26133 LIPI D PANEL 11/17/2013 [id number] GF R CALC (RESULT ONLY) 11/17/2013 Results Test Result Range Complete urinalysis with reflex to cultu re - 03/12/18 23:05 Urine color determination YELLOW NRG Urine clarity determination SL CLOUDY N RG Urine pH measurement by test strip 6 5-9 Specific gravity of urine by test strip 1.015 1.016-1.022 Urine protein assay by test strip, semi-quantitative 3+ NEGATIVE Urine glucose detection by automated test strip NE GATIVE NEGATIVE Erythrocytes detection in urine sediment by light micr oscopy 5+ NEGATIVE Urine ketones detection by automated test strip NE GATIVE NEGATIVE Urine nitrite detection by test strip NEGATIVE NEGATIVE Urine total bilirubin detection by test strip NEGA TIVE NEGATIVE Urine urobilinogen measurement by automated test strip (mass/volume) NORMAL NORMAL Urine leukocyte esterase detection by dipstick 2+ NEGATIVE Automated urine sediment erythrocyte cou nt by microscopy (number/high power field) [HPF] NRG Automated urine sediment leukocyte count by microscopy (number/high power field) [HPF] NRG Bacteria detection in urine sediment by light microsco py MODERATE NRG Squamous epithelial cells detection in u rine sediment by light microscopy 10-25 NRG Crystals detection in urine sediment by light microsco py NONE NRG Casts detection in urine sediment by light microscopy NONE NRG Mucus detection in urine sediment by light microscopy NEGATIVE NRG Complete urinalysis with reflex to culture YES NRG Bacterial urine culture - 03/12/18 23:05 Bacterial urine culture SEE COMMEN NRG COLONY COUNT . NRG Influenza virus A and B antigen detectio n - 03/12/18 23:12 FLU RESULT NEGATIVE FOR INFLUENZA A AND B ANTIGENS BY IA NRG Complete blood count (CBC) with automate d white blood cell (WBC) differential - 03/12/18 23:24 Blood leukocytes automated count (number/volume) 9.4 10*3/uL 4.3-11.0 Blood erythrocytes automated count (number/volume) 4.78 10*6/uL 4.35-5.85 Venous blood hemoglobin measurement (mass/volume) 12.0 g/dL 11.5-16.0 Blood hematocrit (volume fraction) 38 % 35-52 Automated erythrocyte mean corpuscular volume 79 [ foz_us] 80-99 Automated erythrocyte mean corpuscular h emoglobin (mass per erythrocyte) 25 pg 25-34 Automated erythrocyte mean corpuscular h emoglobin concentration measurement (mass/volume) 32 g/dL 32-36 Automated erythrocyte distribution width ratio 15. 9 % 10.0- 14.5 Automated blood platelet count (count/volume) 236 10*3/uL 130-400 Automated blood platelet mean volume measurement 12.1 [foz_us] 7.4-10.4 Automated blood neutrophils/100 leukocytes 68 % 42-75 Automated blood lymphocytes/100 leukocytes 22 % 12-44 Blood monocytes/100 leukocytes 7 % 0-12 Automated blood eosinophils/100 leukocytes 2 % 0-10 Automated blood basophils/100 leukocytes 0 % 0-10 Blood neutrophils automated count (number/volume) 6.4 10*3 1.8-7.8 Blood lymphocytes automated count (number/volume) 2.1 10*3 1.0-4.0 Blood monocytes automated count (number/volume) 0. 7 10*3 0.0-1.0 Automated eosinophil count 0.2 10*3/uL 0 .0-0.3 Automated blood basophil count (count/volume) 0.0 10*3/uL 0.0-0.1 Fibrin D-dimer FEU measurement in platel et poor plasma (mass/volume) - 03/12/18 23:24 Fibrin D-dimer FEU measurement in platelet poor plasma (mass/volume) 2.36 ug/mL 0.00-0.49 Comprehensive metabolic panel - 03/12/18 23:24 Serum or plasma sodium measurement (moles/volume) 139 mmol/L 135-145 Serum or plasma potassium measurement (moles/volume) 3.9 mmol/L 3.6-5.0 Serum or plasma chloride measurement (moles/volume) 107 mmol/L 98-107 Carbon dioxide 23 mmol/L 21-32 Serum or plasma anion gap determination (moles/volume) 9 mmol/L 5-14 Serum or plasma urea nitrogen measurement (mass/volume ) 17 mg/dL 7-18 Serum or plasma creatinine measurement (mass/volume) 1.04 mg/dL 0.60-1.30 Serum or plasma urea nitrogen/creatinine mass ratio 16 NRG Serum or plasma creatinine measurement w ith calculation of estimated glomerular filtration rate 60 NRG Serum or plasma glucose measurement (mass/volume) 89 mg/dL 70-105 Serum or plasma calcium measurement (mass/volume) 9.0 mg/dL 8.5-10.1 Serum or plasma total bilirubin measurement (mass/volu me) 0.9 mg/dL 0.1-1.0 Serum or plasma alkaline phosphatase tommy surement (enzymatic activity/volume) 50 U/L 40-136 Serum or plasma aspartate aminotransfera se measurement (enzymatic activity/volume) 28 U/L 5-34 Serum or plasma alanine aminotransferase measurement (enzymatic activity/volume) 29 U/L 0-55 Serum or plasma protein measurement (mass/volume) 6.8 g/dL 6.4-8.2 Serum or plasma albumin measurement (mass/volume) 3.8 g/dL 3.2-4.5 CALCIUM CORRECTED 9.2 mg/dL 8.5-10.1 Serum or plasma lithium measurement (mol es/volume) - 03/12/18 23:24 BNP level 1981.2 pg/mL <100.0 Urine beta human chorionic gonadotropin (hCG) measurement - 03/12/18 23:41 Urine beta human chorionic gonadotropin (hCG) measurem ent NEGATIVE NEGATIVE Lipid 1996 panel - 03/14/18 03:45 Serum or plasma triglyceride measurement (mass/volume) 77 mg/dL <150 Serum or plasma cholesterol measurement (mass/volume) 141 mg/dL < 200 Serum or plasma cholesterol in HDL measurement (mass/v olume) 38 mg/dL 40-60 Cholesterol in LDL [mass/volume] in serum or plasma by direct assay 104 mg/dL 1-129 Serum or plasma cholesterol in VLDL measurement (mass/ volume) 15 mg/dL 5-40 Whole blood basic metabolic panel - 03/05 03/23 13:10 Serum or plasma sodium measurement (moles/volume) 139 mmol/L 135-145 Serum or plasma potassium measurement (moles/volume) 4.1 mmol/L 3.6-5.0 Serum or plasma chloride measurement (moles/volume) 103 mmol/L 98-107 Carbon dioxide 26 mmol/L 21-32 Serum or plasma anion gap determination (moles/volume) 10 mmol/L 5-14 Serum or plasma urea nitrogen measurement (mass/volume ) 20 mg/dL 7-18 Serum or plasma creatinine measurement (mass/volume) 1.05 mg/dL 0.60-1.30 Serum or plasma urea nitrogen/creatinine mass ratio 19 NRG Serum or plasma creatinine measurement w ith calculation of estimated glomerular filtration rate 60 NRG Serum or plasma glucose measurement (mass/volume) 92 mg/dL 70-105 Serum or plasma calcium measurement (mass/volume) 10.2 mg/dL 8.5-10.1 Magnesium - 03/15/18 13:10 Magnesium 2.1 mg/dL 1.8-2.4 Whole blood basic metabolic panel - 03/05 04/23 05:32 Serum or plasma sodium measurement (moles/volume) 138 mmol/L 135-145 Serum or plasma potassium measurement (moles/volume) 3.8 mmol/L 3.6-5.0 Serum or plasma chloride measurement (moles/volume) 103 mmol/L 98-107 Carbon dioxide 23 mmol/L 21-32 Serum or plasma anion gap determination (moles/volume) 12 mmol/L 5-14 Serum or plasma urea nitrogen measurement (mass/volume ) 19 mg/dL 7-18 Serum or plasma creatinine measurement (mass/volume) 0.93 mg/dL 0.60-1.30 Serum or plasma urea nitrogen/creatinine mass ratio 20 NRG Serum or plasma creatinine measurement w ith calculation of estimated glomerular filtration rate > NRG Serum or plasma glucose measurement (mass/volume) 99 mg/dL 70-105 Serum or plasma calcium measurement (mass/volume) 9.1 mg/dL 8.5-10.1 Magnesium - 03/16/18 05:32 Magnesium 1.9 mg/dL 1.8-2.4 Encounters ACCT No. Visit Date/Time Discharge Status Pt. Type Provider Facility Loc./Unit Complaint [id number] 11/17/2013 08:10:00 11/17/2013 23:59: 59 CLS Outpatient AB JORGE APRN [id number] 11/14/2013 10:40:00 11/14/2013 23:59: 59 CLS Outpatient AB JORGE APRN [id number] 10/08/2013 12:35:00 10/08/2013 23:59: 59 CLS Outpatient ONDINA MOISE APRN [id number] 07/09/2013 09:58:00 07/09/2013 23:59: 59 CLS Outpatient MING VILLA DO [id number] 05/26/2013 10:07:00 05/26/2013 23:59: 59 CLS Outpatient ROSALIA MADRIGAL APRN [id number] 05/26/2013 10:07:00 05/26/2013 23:59: 59 CLS Outpatient ROSALIA MADRIGAL APRN [id number] 03/13/2013 14:45:00 03/13/2013 23:59: 59 CLS Outpatient ONDINA MOISE APRN [id number] 01/06/2013 09:33:00 01/06/2013 23:59: 59 CLS Outpatient MING VILLA DO [id number] 08/02/2012 08:58:00 08/02/2012 23:59: 59 CLS Outpatient MING VILLA DO [id number] 05/13/2012 08:56:00 05/13/2012 23:59: 59 CLS Outpatient ROSALIA MADRIGAL APRN [id number] 05/07/2012 11:12:00 05/07/2012 23:59: 59 CLS Outpatient MING VILLA DO [id number] 04/10/2012 10:00:00 04/10/2012 23:59: 59 CLS Outpatient [id number] 09/27/2011 16:09:00 09/27/2011 23:59: 59 [place] [id number] 09/27/2011 16:09:00 09/27/2011 23:59:5 9 CLS Outpatient [id number] 07/12/2019 14:10:00 07/12/2019 23:59:5 9 CLS [facility] [id number] 04/20/2019 13:09:00 14:38:00 DIS Emergency NIVIA ALMAGUER [facility] ER DENTAL PAIN [id number] 06/25/2018 09:00:00 23:59:59 CLS Outpatient CHERELLE HUTCHINSON, IVETH Huggins [facility] CARD CARDIOMYOPATHY [id number] 04/22/2018 20:43:00 06:35:00 DIS Outpatient MINI DONOHUE APRN [facility] SLEEP CHF,TOBACCO USE R,SLEEP DISORDER [id number] 04/03/2018 15:30:00 23:59:59 CLS Preadmit MINI DONOHUE APRN [facility] RT CHF,TOBACCO USE R,SLEEP DISORDER [id number] 03/15/2018 14:48:00 15:52:00 DIS Inpatient PAO HUTCHINSON, WHIT De Anda [facility] 4TH CHF EXACERBATION UTI [id number] 02/20/2015 09:25:00 015 11:20:00 DIS Emergency INDRA VALLEJO MD [facility] ER COUGHING/CONGES CARMEL/DIFF BREATHING [id number] 07/07/2013 20:06:00 014 22:02:00 DIS Emergency DAYSI DO, MICH Jae [facility] ER CHEST PAIN [id number] 02/20/2013 10:06:00 013 23:59:59 CLS Outpatient CHERELLE HUTCHINSON, IVETH Huggins [facility] CARD CHF [id number] 05/29/2011 08:59:00 Document Registration [id number] 03/28/2011 12:16:00 Document Registration [id number] 01/11/2011 19:13:00 Document Registration [id number] 10/04/2010 07:46:00 Document Registration [id number] 04/11/2010 09:59:00 Document Registration [id number] 03/29/2010 20:59:00 Document Registration [id number] 12/27/2009 09:42:00 Document Registration [id number] 10/21/2009 10:18:00 Document Registration [id number] 09/09/2009 14:41:00 Document Registration [id number] 07/19/2009 16:57:00 Document Registration [id number] 05/08/2018 18:40:00 05/08/2018 23:59: 59 CLS Outpatient MYRA ELKINS APRN [facility]
== END 2019-10-21 21:37 | disposition home or self-care (01) ==
LOC: ER 20:43 → EDUNIT# 20:43 → ER 21:37
DX: K04.7 Periapical abscess without sinus (principal); F17.210 Nicotine dependence, cigarettes, uncomplicated; Z88.8 Allergy status to other drugs, medicaments and biological substances; Z88.4 Allergy status to anesthetic agent; Z82.49 Family history of ischemic heart disease and other diseases of the circulatory system
CPT/HCPCS: 99283

== ENCOUNTER → 2019-12-25 | Outpatient (CLI) | payer SELFPAY ==
[~2019-12-25] MED LIST changes: +AMOX500C2 PO
== END ==
LOC: CARD 14:34
PROVIDERS: ATTEND Internal Medicine Cardiovascular Disease
DX: I50.22 Chronic systolic (congestive) heart failure (principal); I51.7 Cardiomegaly; Z72.0 Tobacco use
CPT/HCPCS: 93306

== ENCOUNTER 2020-10-16 00:52 | Emergency (ER) | payer BC ==
[~2020-10-16] VITALS: Ht 165.1 cm; Wt 110.0 kg
--- NOTE | 2020-10-16 04:16 | ED Cough/URI ---
General Chief Complaint: Oral/Throat Problems Stated Complaint: COVID EXPOSURE COUGH Nursing Triage Note: Pt ambulatory into ER with complaint of needing Covid tested due to Covid Exposure/Sore Throat x1 week. Pts friend who has been at her house for the last week tested positive in our ER earlier today. Source: patient History of Present Illness Date Seen by Provider: Oct 16, 2020 Time Seen by Provider: 03:44 Initial Comments PT ARRIVES VIA POV WITH NEPHEW, WHO IS ALSO BEING SEEN FOR SAME HAS BEEN AROUND A FRIEND ALL WEEK, WHO TESTED + FOR COVID EARLIER TODAY/Sunday10/15/20, SO PT AND NEPHEW ARE HERE TO GET A COVID-19 TEST. PT ALSO HERE FOR WORK NOTE PT STATES SHE HAS HAD A SORE THROAT X 1 NO OTHER SYMPTOMS NO CHRONIC ILLNESSES, PER PT, BUT ASTHMA IS LISTED ON PREVIOUS RECORDS PT SMOKES 1/2 PPD PCP: [facility] Allergies and Home Medications Allergies Coded Allergies: paroxetine (Unverified Allergy, Unknown, 07/07/13) Uncoded Allergies: ANESTHETIC (Allergy, Unknown, 07/07/13) Home Medications Amoxicillin 500 Mg Capsule, 500 MG PO TID Prescribed by: RYANNE HERNANDEZ on 10/21/192122 Cefdinir 300 Mg Capsule, 300 MG PO BID Prescribed by: WHIT CEDENO on 03/14/18 1654 Metoprolol Succinate 25 Mg Tab.er.24h, 25 MG PO DAILY Prescribed by: WHIT CEDENO on 03/14/18 1654 Penicillin V Potassium 500 Mg Tablet, 500 MG PO QID Prescribed by: NIVIA MICHELLE on 04/20/19 1412 Sacubitril/Valsartan 1 Each Tablet, 1 TAB PO BID Prescribed by: WHIT CEDENO on 03/14/18 165 Tramadol HCl 50 Mg Tablet, 50 MG PO Q6H PRN for PAIN Prescribed by: NIVIA MICHELLE on 04/20/19 1412 Review of Systems Review of Systems Constitutional: no symptoms reported EENTM: see HPI, throat pain Respiratory: no symptoms reported Cardiovascular: no symptoms reported Gastrointestinal: no symptoms reported Genitourinary: no symptoms reported Musculoskeletal: no symptoms reported Skin: no symptoms reported Psychiatric/Neurological: No Symptoms Reported Hematologic/Lymphatic: No Symptoms Reported Immunological/Allergic: no symptoms reported Past Ijdmsci-Fuvcsd-Rmexst Hx Patient Social History Tobacco Use?: Yes (1/2 PPD) Tobacco type used: Cigarettes Smoking Status: Current Everyday Smoker Use of E-Cig and/or Vaping dev: No Substance use?: No Alcohol Use?: No Pt feels they are or have been: No Immunizations Up To Date PED Vaccines UTD: Yes Influenza Vaccine Up-to-Date: No; Not Current Seasonal Allergies Seasonal Allergies: No Past Medical History Surgeries: Yes Adenoidectomy, Tonsillectomy, Tubal Ligation Respiratory: Yes (VERY DIFFICULT TO INTUBATE) Asthma Cardiac: No Neurological: No Reproductive Disorders: Yes 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 6.0oz. 113.724158ud; 40.00 BMI Method:Estimated Progress/Results/Core Measures Suspected Sepsis SIRS Temperature: Pulse: 61 Respiratory Rate: 20 Blood Pressure 136 /91 Mean: 106 Results/Orders Lab Results Laboratory Tests Test 10/16/20 03:45 Range/Units SARS-CoV-2 RNA (RT-PCR) Detected H Not Detecte My Orders Orders - MICH TAVAREZ DO Covid 19 Inhouse Test (10/16/20 03:43) Vital Signs/I&O 10/16/20 03:35 Temp 36.0 Pulse 61 Resp 20 B/P (MAP) 136/91 (106) Pulse Ox 97 O2 Delivery Room Air Capillary Refill : Less Than 3 Seconds Blood Pressure Mean: 106 Departure Impression Primary Impression: COVID-19 virus infection Disposition: 01 HOME, SELF-CARE Condition: Stable Departure-Patient Inst. Referrals: [facility] (PCP/Family) Primary Care Physician Patient Instructions: Preventing the Spread of an Infectious Disease, COVID-19 (DC), REGEN-COV (casirivimab and imdevimab) FDA Fact Sheet, Recovery After COVID-19 Add. Discharge Instructions: LOTS OF CLEAR LIQUIDS TYLENOL 1 GRAM / MOTRIN 800 MG 4 TIMES A DAY FOR PAIN OR FEVER OVER THE COUNTER MUCINEX DM FOR COUGH FOLLOW UP ON SUNDAY MORNING TO SCHEDULE REGEN-COV INFUSION USE INHALER AND DECADRON IF YOU START HAVING ASTHMA SYMPTOMS, DIFFICULTY BREATHING, ETC. RETURN TO ER IF YOUR SYMPTOMS BECOME MUCH WORSE QUARANTINE YOURSELF AND ALL HOUSEHOLD AND CLOSE CONTACTS FOR 2 WEEKS All discharge instructions reviewed with patient and/or family. Voiced understanding. Scripts Dexamethasone (Decadron) 6 Mg Tablet 6 MG PO DAILY, #10 TAB Prov: MICH TAVAREZ DO 10/16/20 Albuterol Sulfate (PROAIR HFA) 1 Puff Puff 2 PUFF IH Q4H, #1 EA 1 PUFF = 90 MCG Prov: MICH TAVAREZ DO 10/16/20 Work/School Note: Work Release Form Date Seen in the Emergency Department: Oct 16, 2020 Return to Work: Oct 31, 2020 MICH TAVAREZ DO Oct 16, 2020 04:16
[2020-10-16] MEDS ORDERED: RT-ALBUINH IH (05:45)
[2020-10-16] MEDS ORDERED: DEXA6TAB6 PO (05:45)
[2020-10-16 06:08] VITALS: BP 131/90
== END 2020-10-16 06:00 | disposition home or self-care (01) ==
LOC: EDUNIT# 00:52 → ER 00:56
DX: U07.1 COVID-19 (principal); F17.210 Nicotine dependence, cigarettes, uncomplicated
CPT/HCPCS: 87636; 99282

== ENCOUNTER 2020-10-19 09:08 | Outpatient (CLI) | payer BC ==
[~2020-10-19] VITALS: Ht 157.5 cm; Wt 121.1 kg
[2020-10-19 09:00] VITALS: BP_SYST 124; BP_DIAS 70; BP_DIAS 80
[~2020-10-19 09:08] MED LIST changes: +DEXA6TAB6 PO; +RT-ALBUINH IH
[2020-10-19] MEDS ORDERED: diphenhydrAMINE 50 MG/ML INJ (BENADRYL) IV PRN (09:45)
[2020-10-19] MEDS ORDERED: CASIRIVIMAB/IMDEVIMAB 1,200 MG in NS (IVPB) 250 ML IV ONE (09:45)
[2020-10-19] MEDS ORDERED: ONDANSETRON 4 MG/2 ML (SDV) Z0FRAN IV PRN (09:45)
[2020-10-19] MEDS ORDERED: ACETAMINOPHEN 500 MG TAB (TYLENOL) PO PRN (09:45)
[2020-10-19] MEDS ORDERED: EPINEPHrine INJECTION 1 MG/ML AMP IM PRN (09:45)
[2020-10-19 10:54] VITALS: BP 127/87
== END 2020-10-19 11:50 | disposition home or self-care (01) ==
LOC: INFUSION 09:08
PROVIDERS: ATTEND Emergency Medicine
DX: Z23 Encounter for immunization (principal); U07.1 COVID-19

== ENCOUNTER 2021-10-30 14:09 | Emergency (ER) | payer BC ==
[~2021-10-30] VITALS: Ht 165 cm; Wt 118.0 kg
[~2021-10-30 14:09] MED LIST changes: -LEVO500T80 PO; +LEVO500T81 PO
[2021-10-30] MEDS ORDERED: morphine INJ 10 MG/ML 1ML (SYR OR VIAL) IVP STA (14:20)
--- NOTE | 2021-10-30 14:22 | ED Chest Pain ---
General Stated Complaint: CP,SOB Source: patient Exam Limitations: no limitations History of Present Illness Date Seen by Provider: Oct 30, 2021 Time Seen by Provider: 14:22 Initial Comments This is a 41-year-old female who presented to the ER via POV from [facility] for complaints of chest pain, shortness of breath that started around 0500 this morning. Allergies and Home Medications Allergies Coded Allergies: paroxetine (Unverified Allergy, Unknown, 07/07/13) Uncoded Allergies: ANESTHETIC (Allergy, Unknown, 07/07/13) Patient Home Medication List Albuterol Sulfate (Proair Hfa) 1 Puff Puff, 2 PUFF IH Q4H Prescribed by: MICH TAVAREZ on 10/16/20 05 Amoxicillin (Amoxicillin) 500 Mg Capsule, 500 MG PO TID Prescribed by: RYANNE HERNANDEZ on 10/21/192122 Cefdinir (Cefdinir) 300 Mg Capsule, 300 MG PO BID Prescribed by: WHIT CEDENO on 03/14/181653 Dexamethasone (Decadron) 6 Mg Tablet, 6 MG PO DAILY Prescribed by: MICH TAVAREZ on 10/16/20544 Metoprolol Succinate (Metoprolol Succinate) 25 Mg Tab.er.24h, 25 MG PO DAILY Prescribed by: WHIT CEDENO on 03/14/181653 Penicillin V Potassium (Penicillin V Potassium) 500 Mg Tablet, 500 MG PO QID Prescribed by: NIVIA MICHELLE on 04/20/19 141 Sacubitril/Valsartan (Entresto 24 mg-26 mg Tablet) 1 Each Tablet, 1 TAB PO BID Prescribed by: WHIT CEDENO on 03/14/18 165 Tramadol HCl (Tramadol HCl) 50 Mg Tablet, 50 MG PO Q6H PRN for PAIN Prescribed by: NIVIA MICHELLE on 04/20/19 1412 Past Fudocqr-Ckwwvq-Fsqoek Hx Immunizations Up To Date PED Vaccines UTD: Yes Seasonal Allergies Seasonal Allergies: No Past Medical History Surgeries: Yes Adenoidectomy, Tonsillectomy, Tubal Ligation Respiratory: Yes (VERY DIFFICULT TO INTUBATE) Asthma Cardiac: No Neurological: No Reproductive Disorders: Yes 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 6.0oz. 113.375808hd; 40.00 BMI Method:Estimated Progress/Results/Core Measures Results/Orders Lab Results Laboratory Tests Test 10/30/21 14:25 10/30/21 14:28 Range/Units White Blood Count 12.9 H 4.3-11.0 10^3/uL Red Blood Count 4.84 3.80-5.11 10^6/uL Hemoglobin 13.7 11.5-16.0 g/dL Hematocrit 42 35-52 % Mean Corpuscular Volume 87 80-99 fL Mean Corpuscular Hemoglobin 28 25-34 pg Mean Corpuscular Hemoglobin Concent 33 32-36 g/dL Red Cell Distribution Width 16.0 H 10.0-14.5 % Platelet Count 319 130-400 10^3/uL Mean Platelet Volume 12.8 H 9.0-12.2 fL Immature Granulocyte % (Auto) 1 % Neutrophils (%) (Auto) 69 42-75 % Lymphocytes (%) (Auto) 19 12-44 % Monocytes (%) (Auto) 8 0-12 % Eosinophils (%) (Auto) 3 0-10 % Basophils (%) (Auto) 1 0-10 % Neutrophils # (Auto) 8.9 H 1.8-7.8 10^3/uL Lymphocytes # (Auto) 2.4 1.0-4.0 10^3/uL Monocytes # (Auto) 1.0 0.0-1.0 10^3/uL Eosinophils # (Auto) 0.4 H 0.0-0.3 10^3/uL Basophils # (Auto) 0.1 0.0-0.1 10^3/uL Immature Granulocyte # (Auto) 0.1 0.0-0.1 10^3/uL Prothrombin Time 13.4 12.2-14.7 SEC INR Comment 1.0 0.8-1.4 Activated Partial Thromboplast Time 30 24-35 SEC D-Dimer 0.86 H 0.00-0.49 UG/ML Sodium Level 139 135-145 MMOL/L Potassium Level 3.9 3.6-5.0 MMOL/L Chloride Level 106 98-107 MMOL/L Carbon Dioxide Level 21 21-32 MMOL/L Anion Gap 12 5-14 MMOL/L Blood Urea Nitrogen 8 7-18 MG/DL Creatinine 1.04 0.60-1.30 MG/DL Estimat Glomerular Filtration Rate 70 BUN/Creatinine Ratio 8 Glucose Level 105 70-105 MG/DL Calcium Level 9.1 8.5-10.1 MG/DL Corrected Calcium 9.2 8.5-10.1 MG/DL Magnesium Level 2.0 1.6-2.4 MG/DL Total Bilirubin 1.0 0.1-1.0 MG/DL Aspartate Amino Transf (AST/SGOT) 34 5-34 U/L Alanine Aminotransferase (ALT/SGPT) 33 0-55 U/L Alkaline Phosphatase 75 40-136 U/L Myoglobin 59.4 10.0-92.0 NG/ML Troponin I < 0.028 <0.028 NG/ML B-Type Natriuretic Peptide 1093.6 H <100.0 PG/ML Total Protein 7.8 6.4-8.2 GM/DL Albumin 3.9 3.2-4.5 GM/DL Influenza Type A (RT-PCR) Not Detected Not Detecte Influenza Type B (RT-PCR) Not Detected Not Detecte SARS-CoV-2 RNA (RT-PCR) Not Detected Not Detecte My Orders Orders - DARRIUS DELGADO [employer]TRY [employer]EL [employer] 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 Fibrin Degradation Products (10/30/21 14:20) Bnp [place] (10/30/21 14:20) Morphine Injection (Morphine Injection (10/30/21 14:20) Aspirin Chewable Tablet (Baby Aspirin Ch (10/30/21 14:30) Ct Angio Chest W (10/30/21 15:03) Iohexol Injection (Omnipaque 350 Mg/Ml 1 (10/30/21 15:30) Received Contrast (Hold Metformin- Contr (10/30/21 15:30) Sodium Chloride Flush (Catheter Flush Sy (10/30/21 15:30) Ns (Ivpb) (Sodium Chloride 0.9% Ivpb Bag (10/30/21 15:30) Potassium Chloride (Tablet) (K Dur Table (10/30/21 15:30) Furosemide Injection (Lasix Injection) (10/30/21 15:30) Medications Given in ED Current Medications Medications Dose Ordered Sig/Ronald Route Start Time Stop Time Status Last Admin Dose Admin Aspirin 324 mg ONCE ONCE PO 10/30/21 14:30 10/30/21 14:31 DC 10/30/21 14:31 324 MG Furosemide 20 mg ONCE ONCE IVP 10/30/21 15:30 10/30/21 15:31 DC 10/30/21 15:56 20 MG Iohexol 100 ml ONCE ONCE IV 10/30/21 15:30 10/30/21 15:31 DC 10/30/21 15:26 85 ML Potassium Chloride 20 meq ONCE ONCE PO 10/30/21 15:30 10/30/21 15:31 DC 10/30/21 15:56 20 MEQ Sodium Chloride 100 ml ONCE ONCE IV 10/30/21 15:30 10/30/21 15:31 DC 10/30/21 15:26 70 ML Vital Signs/I&O 10/30/21 14:15 Temp 36.7 Pulse 85 Resp 18 B/P (MAP) 120/99 (106) Pulse Ox 99 O2 Delivery Room Air Departure Impression Primary Impression: CHF exacerbation Additional Impression: Methamphetamine dependence, episodic Disposition: 01 HOME, SELF-CARE Condition: Improved Departure-Patient Inst. Decision time for Depature: 16:29 Referrals: [facility] (PCP/Family) Primary Care Physician Patient Instructions: Heart Failure ED Add. Discharge Instructions: Plan: 1. We will start your Lasix and Potassium as you were previously taking, take as directed. 2. Stop using methamphetamine, energy drinks, high volumes of caffeine as this is continuing to place strain on your heart. 3. Call Dr. Khan's office first thing tomorrow and schedule close follow-up. 4. Return to the ER if you have any new, concerning, worsening symptoms. Scripts Potassium Chloride (Potassium Chloride) 10 Meq Tab.er.prt 10 MEQ PO DAILY for 7 Days, #7 TAB 0 Refills Prov: DARRIUS DELGADO APRN 10/30/21 Furosemide (Furosemide) 20 Mg Tablet 10 MG PO DAILY for 7 Days, #7 TAB 0 Refills Prov: DARRIUS DELGADO APRN 10/30/21 DARRIUS DELGADO APRN Oct 30, 2021 14:22
[2021-10-30] MEDS ORDERED: ASPIRIN 81 MG CHEW (CHILDREN'S ASA) PO ONE (14:30)
[2021-10-30 14:33] LABS: BASOPHILS # (AUTO) 0.1 10^3/uL (0.0-0.1); BASOPHILS % (AUTO) 1 % (0-10); EOSINOPHILS # (AUTO) 0.4 10^3/uL (0.0-0.3); EOSINOPHILS % (AUTO) 3 % (0-10); HEMATOCRIT 42 % (35-52); HEMOGLOBIN 13.7 g/dL (11.5-16.0); LYMPHOCYTES # (AUTO) 2.4 10^3/uL (1.0-4.0); LYMPHOCYTES % (AUTO) 19 % (12-44); MEAN CORPUSCULAR HEMOGLOBIN 28 pg (25-34); MEAN CORPUSCULAR HGB CONC 33 g/dL (32-36); MEAN CORPUSCULAR VOLUME 87 fL (80-99); MEAN PLATELET VOLUME 12.8 fL (9.0-12.2); MONOCYTES % (AUTO) 8 % (0-12); NEUTROPHILS # (AUTO) 8.9 10^3/uL (1.8-7.8); NEUTROPHILS % (AUTO) 69 % (42-75); PLATELET COUNT 319 10^3/uL (130-400); WHITE BLOOD COUNT 12.9 10^3/uL (4.3-11.0)
[2021-10-30 14:44] LABS: ALBUMIN 3.9 GM/DL (3.2-4.5); POTASSIUM 3.9 MMOL/L (3.6-5.0)
[2021-10-30 14:45] LABS: PROTHROMBIN TIME PATIENT 13.4 SEC (12.2-14.7)
[2021-10-30 14:46] LABS: CALCIUM 9.1 MG/DL (8.5-10.1)
[2021-10-30 14:47] LABS: TOTAL PROTEIN 7.8 GM/DL (6.4-8.2)
[2021-10-30 14:50] LABS: CREATININE SERUM 1.04 MG/DL (0.60-1.30)
[2021-10-30] MEDS ORDERED: FUROSEMIDE 40 MG/4 ML INJ (LASIX) IVP ONE ×2 (15:15→15:30)
--- NOTE | 2021-10-30 15:21 | Diagnostic Imaging Report ---
INDICATION: Chest pain. EXAMINATION: Chest, 10/30/2021. COMPARISON: 07/07/2013. FINDINGS: There is cardiomegaly with mild prominence of the pulmonary vasculature. There are no infiltrates or effusions. No pneumothorax. IMPRESSION: No acute cardiopulmonary process. Dictated by: Dictated on workstation # [id number]
[2021-10-30] MEDS ORDERED: HOLD METFORMIN - RECEIVED CONTRAST 20 ML VIAL IV SCH (15:30)
[2021-10-30] MEDS ORDERED: KCL 20 MEQ TAB (K-DUR) PO ONE (15:30)
[2021-10-30] MEDS ORDERED: IOHEXOL 350 MG/ML 100 ML (OMNIPAQUE 350) VIAL IV ONE (15:30)
[2021-10-30] MEDS ORDERED: CATHETER FLUSH 10 ML SYR IV PRN (15:30)
[2021-10-30] MEDS ORDERED: NS 100 ML (IVPB) BAG IV ONE (15:30)
--- NOTE | 2021-10-30 15:56 | Diagnostic Imaging Report ---
INDICATION: Elevated d-dimer. Shortness of breath. EXAMINATION: CT angiogram of the chest, 10/30/2021. COMPARISON: 03/12/2018. FINDINGS: There are no central or proximal segmental pulmonary emboli. Minimally prominent lymph nodes within the AP window noted with mild adenopathy noted in the right hilum as well. There are small bilateral pleural effusions. There is no significant pericardial effusion. Within the lungs respiratory motion limits evaluation. Vague patchy airspace opacities noted within the posterior aspect of the right lower lobe and similar findings noted in the left lower lobe. These findings could be due to atelectasis with early infiltrates not excluded. There is no pneumothorax. The visualized upper abdominal structures demonstrate findings of suggested right heart failure or strain with reflux of contrast into the hepatic vessels and IVC. There is incompletely imaged cholelithiasis. There is no acute osseous abnormality. IMPRESSION: 1. No central or proximal segmental pulmonary embolus. 2. Scattered areas of atelectasis versus early infiltrate in the lower lobes with small bilateral pleural effusions. 3. Nonspecific minimally prominent lymph nodes in the right hilum and AP window. These could be followed to assure resolution. 4. Findings suggestive of right heart strain. 5. Cholelithiasis. Dictated by: Dictated on workstation # [id number]
[2021-10-30] MEDS ORDERED: POTA10TA37 PO (16:32)
[2021-10-30] MEDS ORDERED: FURO20TA4 PO (16:32)
[2021-10-30 16:39] VITALS: BP 130/89
[2021-11-01] MEDS ORDERED: POTA10TA37 PO (10:45)
== END 2021-10-30 16:40 | disposition home or self-care (01) ==
LOC: EDUNIT# 14:09 → ER 14:11
DX: I50.9 Heart failure, unspecified (principal); F15.20 Other stimulant dependence, uncomplicated; Z20.822 Contact with and (suspected) exposure to COVID-19
CPT/HCPCS: 36415; 71045; 71275; 80053; 83735; 83874; 83880; 84484; 85027; 85379; 85610; 85730; 87636; 93005; 93041

== ENCOUNTER 2021-10-31 20:04 | Observation (INO) | payer BC ==
[~2021-10-31] VITALS: Ht 165.1 cm; Wt 117.2 kg
[~2021-10-31 20:04] MED LIST changes: +LEVO-55 PO; -LEVO500T81 PO; +POTA-177 PO
--- NOTE | 2021-10-31 20:18 | ED Chest Pain ---
General Stated Complaint: CP History of Present Illness Date Seen by Provider: Oct 31, 2021 Time Seen by Provider: 20:18 Initial Comments 33-year-old female with PMH of CHF/anxiety/methamphetamine usage, is here with complaints of chest pain and anxiety which began yesterday. Patient was in the ER yesterday and had a full work-up and was discharged home. Today patient denies fever, shortness of breath, abdominal pain, nausea vomiting, headache, diarrhea or constipation. Patient states that chest pain is constant associated with some acid reflux and also severe anxiety. Patient was in remission for methamphetamine until 2 weeks ago when she took it once and then again she took methamphetamine the past day or 2. 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 Allergies and Home Medications Allergies Coded Allergies: paroxetine (Unverified Allergy, Unknown, 07/07/13) Uncoded Allergies: ANESTHETIC (Allergy, Unknown, 07/07/13) Patient Home Medication List Home Medication List Reviewed: Yes Albuterol Sulfate (Proair Hfa) 1 Puff Puff, 2 PUFF IH Q4H Prescribed by: MICH TAVAREZ on 10/16/20 0545 Amoxicillin (Amoxicillin) 500 Mg Capsule, 500 MG PO TID Prescribed by: RYANNE HERNANDEZ on 10/21/192122 Cefdinir (Cefdinir) 300 Mg Capsule, 300 MG PO BID Prescribed by: WHIT CEDENO on 03/14/18 1654 Dexamethasone (Decadron) 6 Mg Tablet, 6 MG PO DAILY Prescribed by: MICH TAVAREZ on 10/16/20 0545 Furosemide (Furosemide) 20 Mg Tablet, 10 MG PO DAILY Prescribed by: DARRIUS DELGADO on 10/30/21 1632 Metoprolol Succinate (Metoprolol Succinate) 25 Mg Tab.er.24h, 25 MG PO DAILY Prescribed by: WHIT CEDENO on 03/14/18 1654 Penicillin V Potassium (Penicillin V Potassium) 500 Mg Tablet, 500 MG PO QID Prescribed by: NIVIA MICHELLE on 04/20/19 1412 Potassium Chloride (Potassium Chloride) 10 Meq Tab.er.prt, 10 MEQ PO DAILY Prescribed by: DARRIUS DELGADO on 10/30/21 1632 Sacubitril/Valsartan (Entresto 24 mg-26 mg Tablet) 1 Each Tablet, 1 TAB PO BID Prescribed by: WHIT CEDENO on 03/14/18 1654 Tramadol HCl (Tramadol HCl) 50 Mg Tablet, 50 MG PO Q6H PRN for PAIN Prescribed by: NIVIA MICHELLE on 04/20/19 1412 Review of Systems Review of Systems Constitutional: no symptoms reported EENTM: No Symptoms Reported Respiratory: No Symptoms Reported Cardiovascular: Chest Pain Gastrointestinal: No Symptoms Reported Genitourinary: No Symptoms Reported Musculoskeletal: no symptoms reported Skin: no symptoms reported Psychiatric/Neurological: Anxiety Endocrine: No Symptoms Reported Hematologic/Lymphatic: No Symptoms Reported Past Uofjtwm-Rmtgul-Pcrgux Hx Immunizations Up To Date PED Vaccines UTD: Yes Seasonal Allergies Seasonal Allergies: No Past Medical History Surgeries: Yes Adenoidectomy, Tonsillectomy, Tubal Ligation Respiratory: Yes (VERY DIFFICULT TO INTUBATE) Asthma Cardiac: No Neurological: No Reproductive Disorders: Yes ACTIVITY AID History: Tubal Ligation Genitourinary: No Gastrointestinal: No Musculoskeletal: No Endocrine: No HEENT: No Cancer: No Psychosocial: No Integumentary: No Blood Disorders: No Family Medical History Hypertension 19 FATHER 19 MOTHER Myocardial infarction Maternal Grandmother Maternal Grandfather Heart Disease, Other Conditions/Hx Physical Exam Vital Signs Vital Signs - First Documented 10/31/21 20:09 Temp 36.7 Pulse 85 Resp 20 B/P (MAP) 107/86 (93) Pulse Ox 100 O2 Delivery Room Air Capillary Refill : Height, Weight, BMI Height: 5'5.00" Weight: 251lbs. 6.0oz. 113.087693mw; 43.00 BMI Method:Estimated General Appearance: Anxious, Mild Distress HEENT: PERRL/EOMI Neck: Full Range of Motion Respiratory: Chest Non Tender, Lungs Clear, Normal Breath Sounds, No Accessory Muscle Use, No Respiratory Distress Cardiovascular: Regular Rate, Rhythm, Other (mild pitting edema) Gastrointestinal: Normal Bowel Sounds, Non Tender, Soft Extremity: Normal Range of Motion Neurologic/Psychiatric: Alert, Oriented x3, No Motor/Sensory Deficits, Normal Mood/Affect Skin: Normal Color Lymphatic: No Adenopathy Progress/Results/Core Measures Results/Orders Lab Results Laboratory Tests Test 10/31/21 20:15 10/31/21 21:00 Range/Units White Blood Count 13.8 H 4.3-11.0 10^3/uL Red Blood Count 4.71 3.80-5.11 10^6/uL Hemoglobin 13.3 11.5-16.0 g/dL Hematocrit 40 35-52 % Mean Corpuscular Volume 85 80-99 fL Mean Corpuscular Hemoglobin 28 25-34 pg Mean Corpuscular Hemoglobin Concent 33 32-36 g/dL Red Cell Distribution Width 15.8 H 10.0-14.5 % Platelet Count 291 130-400 10^3/uL Mean Platelet Volume 13.0 H 9.0-12.2 fL Immature Granulocyte % (Auto) 1 % Neutrophils (%) (Auto) 62 42-75 % Lymphocytes (%) (Auto) 28 12-44 % Monocytes (%) (Auto) 7 0-12 % Eosinophils (%) (Auto) 3 0-10 % Basophils (%) (Auto) 1 0-10 % Neutrophils # (Auto) 8.5 H 1.8-7.8 10^3/uL Lymphocytes # (Auto) 3.8 1.0-4.0 10^3/uL Monocytes # (Auto) 1.0 0.0-1.0 10^3/uL Eosinophils # (Auto) 0.3 0.0-0.3 10^3/uL Basophils # (Auto) 0.1 0.0-0.1 10^3/uL Immature Granulocyte # (Auto) 0.1 0.0-0.1 10^3/uL Percent Immature Platelet Fraction 14.9 H 0.0-7.6 % Prothrombin Time 13.9 12.2-14.7 SEC INR Comment 1.0 0.8-1.4 Activated Partial Thromboplast Time 30 24-35 SEC D-Dimer 2.94 H 0.00-0.49 UG/ML Sodium Level 140 135-145 MMOL/L Potassium Level 3.5 L 3.6-5.0 MMOL/L Chloride Level 103 98-107 MMOL/L Carbon Dioxide Level 25 21-32 MMOL/L Anion Gap 12 5-14 MMOL/L Blood Urea Nitrogen 14 7-18 MG/DL Creatinine 1.14 0.60-1.30 MG/DL Estimat Glomerular Filtration Rate 63 BUN/Creatinine Ratio 12 Glucose Level 105 70-105 MG/DL Calcium Level 9.5 8.5-10.1 MG/DL Corrected Calcium 9.7 8.5-10.1 MG/DL Magnesium Level 1.8 1.6-2.4 MG/DL Total Bilirubin 1.1 H 0.1-1.0 MG/DL Aspartate Amino Transf (AST/SGOT) 35 H 5-34 U/L Alanine Aminotransferase (ALT/SGPT) 42 0-55 U/L Alkaline Phosphatase 85 40-136 U/L Troponin I < 0.028 <0.028 NG/ML B-Type Natriuretic Peptide 2576.7 H <100.0 PG/ML Total Protein 7.6 6.4-8.2 GM/DL Albumin 3.8 3.2-4.5 GM/DL Urine Color ORANGE Urine Clarity CLEAR Urine pH 6.0 5-9 Urine Specific [place] 1.010 L 1.016-1.022 Urine Protein 1+ H NEGATIVE Urine Glucose (UA) NEGATIVE NEGATIVE Urine Ketones NEGATIVE NEGATIVE Urine Nitrite NEGATIVE NEGATIVE Urine Bilirubin NEGATIVE NEGATIVE Urine Urobilinogen 1.0 < = 1.0 MG/DL Urine Leukocyte Esterase 2+ H NEGATIVE Urine RBC (Auto) 3+ H NEGATIVE Urine RBC NONE /HPF Urine WBC 10-25 H /HPF Urine Squamous Epithelial Cells 2-5 /HPF Urine Renal Epithelial Cells NONE /HPF Urine Crystals NONE /LPF Urine Bacteria LARGE H /HPF Urine Casts NONE /LPF Urine Mucus LARGE H /LPF Urine Culture Indicated YES Urine Opiates Screen POSITIVE H NEGATIVE Urine Oxycodone Screen NEGATIVE NEGATIVE Urine Methadone Screen NEGATIVE NEGATIVE Urine Propoxyphene Screen NEGATIVE NEGATIVE Urine Barbiturates Screen NEGATIVE NEGATIVE Ur Tricyclic Antidepressants Screen NEGATIVE NEGATIVE Urine Phencyclidine Screen NEGATIVE NEGATIVE Urine Amphetamines Screen POSITIVE H NEGATIVE Urine Methamphetamines Screen POSITIVE H NEGATIVE Urine Benzodiazepines Screen NEGATIVE NEGATIVE Urine Cocaine Screen NEGATIVE NEGATIVE Urine Cannabinoids Screen NEGATIVE NEGATIVE My Orders Orders - ANTONETTE TRUJILLO MD Ekg Tracing (10/31/21 20:13) Cbc With Automated Diff (10/31/21 20:19) Magnesium (10/31/21 20:19) Chest 1 View, Ap/Pa Only (10/31/21 20:19) Ekg Tracing (10/31/21 20:19) Comprehensive Metabolic Panel (10/31/21 20:19) Protime With Inr (10/31/21 20:19) Partial Thromboplastin Time (10/31/21 20:19) Monitor-Rhythm Ecg Trace Only (10/31/21 20:19) Ed Iv/Invasive Line Start (10/31/21 20:19) Bnp [place] (10/31/21 20:19) Troponin I [place] (10/31/21 20:19) Aspirin Chewable Tablet (Baby Aspirin Ch (10/31/21 20:30) Drug Screen Stat (Urine) (10/31/21 20:19) Ua Culture If Indicated (10/31/21 20:19) Pantoprazole Injection (Protonix Injecti (10/31/21 20:30) Antacid Suspension (Mylanta Suspension (10/31/21 20:30) Fibrin Degradation Products (10/31/21 20:15) Urine Culture (10/31/21 21:00) Furosemide Injection (Lasix Injection) (10/31/21 21:30) Ed Admission (Communication) (10/31/21 22:50) Medications Given in ED Current Medications Medications Dose Ordered Sig/Ronald Route Start Time Stop Time Status Last Admin Dose Admin Al Hydrox/Mg Hydrox/Simethicone 30 ml ONCE ONCE PO 10/31/21 20:30 10/31/21 20:31 DC 10/31/21 20:43 30 ML Aspirin 324 mg ONCE ONCE PO 10/31/21 20:30 10/31/21 20:31 DC 10/31/21 20:43 324 MG Furosemide 20 mg ONCE ONCE IVP 10/31/21 21:30 10/31/21 21:31 DC 10/31/21 21:54 20 MG Pantoprazole 40 mg ONCE ONCE IV 10/31/21 20:30 10/31/21 20:31 DC 10/31/21 20:43 40 MG Vital Signs/I&O 10/31/21 20:09 Temp 36.7 Pulse 85 Resp 20 B/P (MAP) 107/86 (93) Pulse Ox 100 O2 Delivery Room Air Progress Progress Note : Progress Note 1. ACUTE CHF EXACERBATION: - CXR: unchanged - BNP: 2,576 - Lasix 20mg iv x2 in the ER - Will benefit from admission to step down unit and cardiology consult in the morning, discussed with Dr Reilly 2. METHAMPHETAMINE ABUSE: - Nearing time of admission, pt started developing PVC's on monitor. will need troponin trending; likely due to methamphetamine usage - holding IVF due to CHF status 3. ACUTE CYSTITIS WITH HEMATURIA: - UA is positive for leukocyte esterase, bacteria, RBC, WBC -WBC elevated to 13.8 with a left shift -Ceftriaxone IV stat in ER 4. ELEVATED D-DIMER: - D-dimer is 2.94 - CTA CHEST done yesterday is negative for PE EKG : EKG Time: 20:15 Rate: 81 Rhythm: PVC Intervals: Normal ECG Impression: Nonspecific Changes Comment PVC"s Diagnostic Imaging Diagonstic Imaging: CT Plain Films/CT/US/NM/MRI: chest Comments [facility], [place] NAME: PEPE WEEKS [facility] REC#: [id number] PT STATUS: REG ER : 1980 PHYSICIAN: ANTONETTE TRUJILLO MD ADMIT DATE: 10/31/21/ER Draft Date of Exam:10/31/21 CHEST 1 VIEW, AP/PA ONLY EXAMINATION: Chest radiograph, portable AP view. DATE: 10/31/2021 8:33 PM INDICATION: 41-year-old female, chest pain. COMPARISON: October 30, 2021. FINDINGS: Heart size and mediastinal contours are unchanged. There is no identified pneumothorax. There is no large pleural effusion. There is no identified interval focal airspace consolidation. IMPRESSION: 1. No identified acute cardiopulmonary abnormality. Dictated on workstation # [id number] Dict: 10/31/212048 Trans: 10/31/212107 [facility] [id number] Interpreted by: ROBYN MCCULLOUGH MD Electronically signed by: From Yesterday ER visit: [facility] [place] NAME: PEPE WEEKS [facility] REC#: [id number] PT STATUS: REG ER : 1980 PHYSICIAN: DARRIUS DELGADO APRN ADMIT DATE: 10/30/21/ER Signed Date of Exam:10/30/21 CT ANGIO CHEST W INDICATION: Elevated d-dimer. Shortness of breath. EXAMINATION: CT angiogram of the chest, 10/30/2021. COMPARISON: 03/12/2018. FINDINGS: There are no central or proximal segmental pulmonary emboli. Minimally prominent lymph nodes within the AP window noted with mild adenopathy noted in the right hilum as well. There are small bilateral pleural effusions. There is no significant pericardial effusion. Within the lungs respiratory motion limits evaluation. Vague patchy airspace opacities noted within the posterior aspect of the right lower lobe and similar findings noted in the left lower lobe. These findings could be due to atelectasis with early infiltrates not excluded. There is no pneumothorax. The visualized upper abdominal structures demonstrate findings of suggested right heart failure or strain with reflux of contrast into the hepatic vessels and IVC. There is incompletely imaged cholelithiasis. There is no acute osseous abnormality. IMPRESSION: 1. No central or proximal segmental pulmonary embolus. 2. Scattered areas of atelectasis versus early infiltrate in the lower lobes with small bilateral pleural effusions. 3. Nonspecific minimally prominent lymph nodes in the right hilum and AP window. These could be followed to assure resolution. 4. Findings suggestive of right heart strain. 5. Cholelithiasis. Dictated by: Dictated on workstation # [id number] Dict: 10/30/21 1532 Trans: 10/30/21 1611 [facility] [id number] Interpreted by: GILL MARQUIS MD Electronically signed by: GILL MARQUIS MD 10/30/21 1611 Departure Communication (Admissions) Time/Spoke to Admitting Phy: 21:[address] Reilly, and will admit patient Impression Primary Impression: Acute exacerbation of CHF (congestive heart failure) Qualified Codes: I50.9 - Heart failure, unspecified Additional Impressions: Methamphetamine abuse Acute cystitis with hematuria Disposition: 30 STILL A PATIENT Condition: Stable Admissions Decision to Admit Reason: Admit from ER (General) Decision to Admit/Date: Oct 31, 2021 Time/Decision to Admit Time: 21:58 Departure-Patient Inst. Referrals: [facility] (PCP/Family) Primary Care Physician ANTONETTE TRUJILLO MD Oct 31, 2021 20:18
[2021-10-31 20:28] LABS: BASOPHILS # (AUTO) 0.1 10^3/uL (0.0-0.1); BASOPHILS % (AUTO) 1 % (0-10)
[2021-10-31 20:30] LABS: EOSINOPHILS # (AUTO) 0.3 10^3/uL (0.0-0.3); EOSINOPHILS % (AUTO) 3 % (0-10); HEMATOCRIT 40 % (35-52); HEMOGLOBIN 13.3 g/dL (11.5-16.0); LYMPHOCYTES # (AUTO) 3.8 10^3/uL (1.0-4.0); LYMPHOCYTES % (AUTO) 28 % (12-44); MEAN CORPUSCULAR HEMOGLOBIN 28 pg (25-34); MEAN CORPUSCULAR HGB CONC 33 g/dL (32-36); MEAN CORPUSCULAR VOLUME 85 fL (80-99); MONOCYTES % (AUTO) 7 % (0-12); NEUTROPHILS # (AUTO) 8.5 10^3/uL (1.8-7.8); NEUTROPHILS % (AUTO) 62 % (42-75); PLATELET COUNT 291 10^3/uL (130-400); WHITE BLOOD COUNT 13.8 10^3/uL (4.3-11.0)
[2021-10-31] MEDS ORDERED: PANTOPRAZOLE 40 MG (PROTONIX) VIAL IV ONE (20:30)
[2021-10-31] MEDS ORDERED: ANTACID SUSP 30 ML UDC (MYLANTA) PO ONE (20:30)
[2021-10-31] MEDS ORDERED: ASPIRIN 81 MG CHEW (CHILDREN'S ASA) PO ONE (20:30)
[2021-10-31 20:51] LABS: ALBUMIN 3.8 GM/DL (3.2-4.5); BILIRUBIN,TOTAL 1.1 MG/DL (0.1-1.0); CALCIUM 9.5 MG/DL (8.5-10.1); CREATININE SERUM 1.14 MG/DL (0.60-1.30); FIBRIN DEGRADATION PRODUCTS 2.94 UG/ML (0.00-0.49); MAGNESIUM 1.8 MG/DL (1.6-2.4); POTASSIUM 3.5 MMOL/L (3.6-5.0); PROTHROMBIN TIME PATIENT 13.9 SEC (12.2-14.7); TOTAL PROTEIN 7.6 GM/DL (6.4-8.2)
[2021-10-31 21:05] LABS: BILIRUBIN,URINE NEGATIVE (NEGATIVE); CLARITY,URINE CLEAR; COLOR,URINE ORANGE; GLUCOSE, URINE (UA) NEGATIVE (NEGATIVE); KETONES,URINE NEGATIVE (NEGATIVE); LEUKOCYTE ESTERASE ,URINE 2+ (NEGATIVE); NITRITE,URINE NEGATIVE (NEGATIVE); PROTEIN,URINE 1+ (NEGATIVE)
--- NOTE | 2021-10-31 21:09 | Diagnostic Imaging Report ---
EXAMINATION: Chest radiograph, portable AP view. DATE: 10/31/2021 8:33 PM INDICATION: 41-year-old female, chest pain. COMPARISON: October 30, 2021. FINDINGS: Heart size and mediastinal contours are unchanged. There is no identified pneumothorax. There is no large pleural effusion. There is no identified interval focal airspace consolidation. IMPRESSION: 1. No identified acute cardiopulmonary abnormality. Dictated by: Dictated on workstation # [id number]
[2021-10-31 21:13] LABS: BACTERIA,URINE LARGE /HPF
[2021-10-31 21:15] LABS: AMPHETAMINE SCREEN, URINE POSITIVE (NEGATIVE); BARBITURATE SCREEN URINE NEGATIVE (NEGATIVE); BENZODIAZEPINES SCREEN URINE NEGATIVE (NEGATIVE); CANNABINOID SCREEN, URINE NEGATIVE (NEGATIVE); COCAINE SCREEN URINE NEGATIVE (NEGATIVE); METHADONE STAT NEGATIVE (NEGATIVE); OPIATE SCREEN URINE POSITIVE (NEGATIVE); OXYCODONE STAT NEGATIVE (NEGATIVE); PROPOXYPHENE STAT NEGATIVE (NEGATIVE); TRICYCLIC ANTIDEPRESSANTS SCRE NEGATIVE (NEGATIVE)
[2021-10-31] MEDS ORDERED: NS 100 ML (IVPB) BAG IV ONE (21:15)
[2021-10-31] MEDS ORDERED: IOHEXOL 350 MG/ML 100 ML (OMNIPAQUE 350) VIAL IV ONE (21:15)
[2021-10-31] MEDS ORDERED: FUROSEMIDE 40 MG/4 ML INJ (LASIX) IVP ONE ×2 (21:30→23:00)
[2021-10-31] MEDS ORDERED: cefTRIAXone 1 GM PRE-MIX 50 ML IV STA (22:57)
[2021-11-01] VITALS (11 sets, daily range): BP systolic 98–140; BP diastolic 72–112
[2021-11-01] MEDS ORDERED: ACETAMINOPHEN 500 MG TAB (TYLENOL) PO PRN (00:30)
[2021-11-01] MEDS ORDERED: LORazepam 0.5 MG (ATIVAN) TABLET PO PRN (00:30)
[2021-11-01 00:46] LABS: BASOPHILS # (AUTO) 0.1 10^3/uL (0.0-0.1); BASOPHILS % (AUTO) 0 % (0-10); EOSINOPHILS % (AUTO) 3 % (0-10); HEMOGLOBIN 12.9 g/dL (11.5-16.0); MEAN PLATELET VOLUME 13.6 fL (9.0-12.2)
[2021-11-01 00:48] LABS: EOSINOPHILS # (AUTO) 0.3 10^3/uL (0.0-0.3); HEMATOCRIT 39 % (35-52); LYMPHOCYTES # (AUTO) 2.9 10^3/uL (1.0-4.0); LYMPHOCYTES % (AUTO) 25 % (12-44); MEAN CORPUSCULAR HEMOGLOBIN 28 pg (25-34); MEAN CORPUSCULAR HGB CONC 33 g/dL (32-36); MEAN CORPUSCULAR VOLUME 85 fL (80-99); MONOCYTES # (AUTO) 0.8 10^3/uL (0.0-1.0); MONOCYTES % (AUTO) 7 % (0-12); NEUTROPHILS # (AUTO) 7.2 10^3/uL (1.8-7.8); NEUTROPHILS % (AUTO) 64 % (42-75); PLATELET COUNT 259 10^3/uL (130-400); WHITE BLOOD COUNT 11.4 10^3/uL (4.3-11.0)
[2021-11-01 00:49] LABS: ALBUMIN 3.6 GM/DL (3.2-4.5); POTASSIUM 3.4 MMOL/L (3.6-5.0)
[2021-11-01 00:50] LABS: CALCIUM 8.9 MG/DL (8.5-10.1)
[2021-11-01 00:51] LABS: TOTAL PROTEIN 7.2 GM/DL (6.4-8.2)
[2021-11-01 00:55] LABS: CREATININE SERUM 1.11 MG/DL (0.60-1.30)
[2021-11-01] MEDS: ENOXAPARIN 40 MG/0.4 ML (LOVENOX) SYR SC SCH ×2 (01:43→10:16)
[2021-11-01] MEDS ORDERED: RT-ALBUTEROL SULF 2.5 MG/3 ML PRE-MIX VIAL INH PRN (01:45)
--- NOTE | 2021-11-01 07:38 | Consultation-Cardiology ---
HPI-Cardiology Cardiology Consultation Date of Consultation 11/01/21 Date of Admission Time Seen by Provider: 07:34 Indication: Congestive heart failure HPI 41-year-old lady with history of nonischemic cardiomyopathy. Has been compliant with her medication, has used methamphetamine recently. Came into the emergency room with chest pain, shortness of breath. Responded to Lasix. She denied any fever or chills. No cough or sputum. Denied any palpitation or syncope. Home Medications & Allergies Allergies: Coded Allergies: paroxetine (Unverified Allergy, Unknown, 07/07/13) Uncoded Allergies: ANESTHETIC (Allergy, Unknown, 07/07/13) Home Medication List Reviewed: Yes DOL-Frzpay-Ibrdui Hx Patient Social History Marital Status: single Drug of Choice: POT Smoking Status: Current Everyday Smoker Type Used: Cigarettes 2nd Hand Smoke Exposure: Yes Recent Hopitalizations: No Have you traveled recently?: No Alcohol Use?: No Substance type: Amphetamines, Methamphetamine, Opiates/Opioids Immunizations Up To Date Date of Pneumonia Vaccine: Dec 03, 2010 Date of Influenza Vaccine: Mar 13, 2018 Past Medical History Discussed below Family Medical History Significant Family History: Heart Disease, Other Conditions/Hx Family History: Hypertension 19 FATHER 19 MOTHER Myocardial infarction Maternal Grandmother Maternal Grandfather Review of Systems-General Review of Systems Constitutional: no symptoms reported, malaise, weakness EENTM: see HPI, no symptoms reported Respiratory: see HPI; No cough; dyspnea on exertion; No hemoptysis, No orthopnea, No phlegm; short of breath; No stridor, No wheezing, No other Cardiovascular: see HPI, chest pain, edema; No Hx of Intervention, No palpitations, No syncope, No vascular heart diseas, No other Gastrointestinal: no symptoms reported, see HPI Genitourinary: no symptoms reported, see HPI Musculoskeletal: no symptoms reported Skin: no symptoms reported Psychiatric/Neurological: Anxiety Reviewed Test Results Reviewed Test Results Lab Laboratory Tests Test 10/31/21 20:15 10/31/21 21:00 10/31/21 23:46 Range/Units White Blood Count 13.8 H 11.4 H 4.3-11.0 10^3/uL Red Blood Count 4.71 4.59 3.80-5.11 10^6/uL Hemoglobin 13.3 12.9 11.5-16.0 g/dL Hematocrit 40 39 35-52 % Mean Corpuscular Volume 85 85 80-99 fL Mean Corpuscular Hemoglobin 28 28 25-34 pg Mean Corpuscular Hemoglobin Concent 33 33 32-36 g/dL Red Cell Distribution Width 15.8 H 15.8 H 10.0-14.5 % Platelet Count 291 259 130-400 10^3/uL Mean Platelet Volume 13.0 H 13.6 H 9.0-12.2 fL Immature Granulocyte % (Auto) 1 1 % Neutrophils (%) (Auto) 62 64 42-75 % Lymphocytes (%) (Auto) 28 25 12-44 % Monocytes (%) (Auto) 7 7 0-12 % Eosinophils (%) (Auto) 3 3 0-10 % Basophils (%) (Auto) 1 0 0-10 % Neutrophils # (Auto) 8.5 H 7.2 1.8-7.8 10^3/uL Lymphocytes # (Auto) 3.8 2.9 1.0-4.0 10^3/uL Monocytes # (Auto) 1.0 0.8 0.0-1.0 10^3/uL Eosinophils # (Auto) 0.3 0.3 0.0-0.3 10^3/uL Basophils # (Auto) 0.1 0.1 0.0-0.1 10^3/uL Immature Granulocyte # (Auto) 0.1 0.1 0.0-0.1 10^3/uL Percent Immature Platelet Fraction 14.9 H 15.5 H 0.0-7.6 % Prothrombin Time 13.9 12.2-14.7 SEC INR Comment 1.0 0.8-1.4 Activated Partial Thromboplast Time 30 24-35 SEC D-Dimer 2.94 H 0.00-0.49 UG/ML Sodium Level 140 141 135-145 MMOL/L Potassium Level 3.5 L 3.4 L 3.6-5.0 MMOL/L Chloride Level 103 103 98-107 MMOL/L Carbon Dioxide Level 25 24 21-32 MMOL/L Anion Gap 12 14 5-14 MMOL/L Blood Urea Nitrogen 14 15 7-18 MG/DL Creatinine 1.14 1.11 0.60-1.30 MG/DL Estimat Glomerular Filtration Rate 63 65 BUN/Creatinine Ratio 12 14 Glucose Level 105 98 70-105 MG/DL Calcium Level 9.5 8.9 8.5-10.1 MG/DL Corrected Calcium 9.7 9.2 8.5-10.1 MG/DL Magnesium Level 1.8 1.6-2.4 MG/DL Total Bilirubin 1.1 H 1.0 0.1-1.0 MG/DL Aspartate Amino Transf (AST/SGOT) 35 H 33 5-34 U/L Alanine Aminotransferase (ALT/SGPT) 42 41 0-55 U/L Alkaline Phosphatase 85 75 40-136 U/L Troponin I < 0.028 < 0.028 <0.028 NG/ML B-Type Natriuretic Peptide 2576.7 H <100.0 PG/ML Total Protein 7.6 7.2 6.4-8.2 GM/DL Albumin 3.8 3.6 3.2-4.5 GM/DL Urine Color ORANGE Urine Clarity CLEAR Urine pH 6.0 5-9 Urine Specific [place] 1.010 L 1.016-1.022 Urine Protein 1+ H NEGATIVE Urine Glucose (UA) NEGATIVE NEGATIVE Urine Ketones NEGATIVE NEGATIVE Urine Nitrite NEGATIVE NEGATIVE Urine Bilirubin NEGATIVE NEGATIVE Urine Urobilinogen 1.0 < = 1.0 MG/DL Urine Leukocyte Esterase 2+ H NEGATIVE Urine RBC (Auto) 3+ H NEGATIVE Urine RBC NONE /HPF Urine WBC 10-25 H /HPF Urine Squamous Epithelial Cells 2-5 /HPF Urine Renal Epithelial Cells NONE /HPF Urine Crystals NONE /LPF Urine Bacteria LARGE H /HPF Urine Casts NONE /LPF Urine Mucus LARGE H /LPF Urine Culture Indicated YES Urine Opiates Screen POSITIVE H NEGATIVE Urine Oxycodone Screen NEGATIVE NEGATIVE Urine Methadone Screen NEGATIVE NEGATIVE Urine Propoxyphene Screen NEGATIVE NEGATIVE Urine Barbiturates Screen NEGATIVE NEGATIVE Ur Tricyclic Antidepressants Screen NEGATIVE NEGATIVE Urine Phencyclidine Screen NEGATIVE NEGATIVE Urine Amphetamines Screen POSITIVE H NEGATIVE Urine Methamphetamines Screen POSITIVE H NEGATIVE Urine Benzodiazepines Screen NEGATIVE NEGATIVE Urine Cocaine Screen NEGATIVE NEGATIVE Urine Cannabinoids Screen NEGATIVE NEGATIVE Physical Exam Physical Exam Vital Signs Vital Signs - First Documented 10/31/21 11/01/21 11/01/21 20:09 01:18 01:45 Temp 36.7 Pulse 85 Resp 20 B/P (MAP) 107/86 (93) Pulse Ox 100 O2 Delivery Room Air O2 Flow Rate 2.00 FiO2 21 Capillary Refill : Less Than 3 Seconds Height, Weight, BMI Height: 5'5.00" Weight: 251lbs. 6.0oz. 113.431222bl; 42.99 BMI Method:Estimated General Appearance: No Apparent Distress Eyes: Bilateral Eye Normal Inspection, Bilateral Eye PERRL, Bilateral Eye EOMI HEENT: PERRL/EOMI Neck: Full Range of Motion Respiratory: Chest Non Tender, No Accessory Muscle Use, No Respiratory Distress, Wheezing Cardiovascular: Regular Rate, Rhythm, Gallop/S3, Other (mild pitting edema) Gastrointestinal: Normal Bowel Sounds, Non Tender, Soft Back: Normal Inspection, No CVA Tenderness, No Vertebral Tenderness Extremity: Normal Range of Motion Neurologic/Psychiatric: Alert, Oriented x3, No Motor/Sensory Deficits, Normal Mood/Affect Skin: Normal Color Lymphatic: No Adenopathy A/P-Cardiology Admission Diagnosis Chest pain Dyspnea Congestive heart failure, acute on chronic left ventricular systolic dysfunction, nonischemic cardiomyopathy Methamphetamine use Assessment/Plan Chest pain nonspecific etiology, atypical in presentation, EKG and cardiac enzymes did not show any acute abnormality. Probably noncardiac chest pain. Shortness of breath, fluid overload, responding to Lasix, reporting improvement in her symptoms. Continue on diuretics. Congestive heart failure, acute on chronic left ventricular systolic d ysfunction, nonischemic cardiomyopathy, Last echocardiogram done on December 25, 2019 showing normal LV size with EF 55- 65 percent, grade 1 diastolic dysfunction, left atrium 4.6 cm, PA 40-45 mmHg. Maintained on metoprolol and Entresto Educated on compliance with medication I am planning to repeat 2D echocardiogram Status post COVID-19 infection in October 2020, was milder. Has recovered well Hypertension, good control, mild orthostatic dizziness, didn't take her meds today, reporting good blood pressure control Status post hypotension. Secondary to medication. Doing well at this time. Continue to monitor Frequent premature ventricular contractions, tolerating beta blockers well. Obesity, BMI 43, has been gaining weight. We discussed weight loss and diet and exercise Tobaccoism, has stopped smoking since her hospitalization in March 2018, encouraged to continue with smoking cessation. Sleep study was done showing primary snoring, no sleep apnea done in April 2018 Methamphetamine use, educated on avoiding illicit drug use Clinical Quality Measures AMI/AHF: ASA po Prior to arrival: IVETH Chávez MD Nov 01, 2021 07:38
[2021-11-01] MEDS ORDERED: FUROSEMIDE 40 MG/4 ML INJ (LASIX) IVP NR (08:00)
[2021-11-01] MEDS ORDERED: meTOprolol SUCCINATE 100 MG (TOPROL XL) TAB PO SCH (09:00)
[2021-11-01] MEDS ORDERED: SACUBITRIL/VALSARTAN 24/26 MG (ENTRESTO) TABLET PO SCH (09:00)
[2021-11-01] MEDS ORDERED: IBUP-2185 PO (10:45)
[2021-11-01] MEDS ORDERED: ACET-2267 PO (10:45)
[2021-11-01] MEDS ORDERED: POTA-177 PO (10:45)
[2021-11-01] MEDS ORDERED: MTP100TCR PO (10:45)
[2021-11-01] MEDS ORDERED: SACU1TAB2 PO (10:45)
[2021-11-01] MEDS ORDERED: FURO20TA4 PO (10:45)
--- NOTE | 2021-11-01 12:12 | Discharge Summary ---
Discharge [facility] Reconcile Patient Problems Problems Reviewed?: Yes Discharge Medications New, Converted or Re-Newed RX: Other (No new meds) Continued Medications: Acetaminophen (Tylenol Extra Strength) 500 Mg Tablet 1000 MG PO Q8H PRN for PAIN-MILD (1-4), TAB Metoprolol Succinate (Metoprolol Succinate) 100 Mg Tab.er.24h 100 MG PO HS, TAB LAST FILLED 04-08-2021 #90/90 DAY SUPPLT Sacubitril/Valsartan (Entresto 24 mg-26 mg Tablet) 24 Mg-26 Mg Tablet 1 TAB PO BID, TAB Discontinued Medications: Furosemide (Furosemide) 20 Mg Tablet 20 MG PO DAILY for 7 Days, TAB FILLED 10-30-2021 #7/ DAY SUPPLY Ibuprofen (Ibuprofen) 200 Mg Capsule 400 MG PO Q8H PRN for PAIN-MILD (1-4), CAP Potassium Chloride (Potassium Chloride) 10 Meq Tab.er.prt 10 MEQ PO DAILY for 7 Days, TAB FILLED 10-30-2021 #7/ DAY SUPPLY Patient Instructions Goal/Follow Up Appt: PCP 1-2 weeks Return to The Hospital For: Returning chest pain or shortness of breath Activity & Diet Discharge Diet: Cardiac Diet LYUBOV CASTELLANOS MD Nov 01, 2021 12:12
--- NOTE | 2021-11-01 12:14 | Short Stay Summary ---
HPI History of Present Illness: Patient is a 41 yo female admitted for chest pain and acute CHF exacerbation. She states that she is feeling okay this morning. She indicates that she still experiences intermittent chest pain. She describes the pain as stabbing and localizes it to the entirety of her upper chest. She also indicates SOB, dyspnea, and trouble urinating. She denies constipation, diarrhea, nausea or vomiting, as well as cough and dysuria. Source: patient, EMS notes reviewed Exam Limitations: no limitations Date seen by provider: Nov 01, 2021 Time Seen by Provider: 07:40 Attending Physician [facility] PCP Admitting Physician: Carmen Reilly MD Attending Physician: Carmen Reilly MD Consult Date of Admission Nov 01, 2021 at 00:32 Home Medications Home Medications Reviewed patient Home Medication Reconciliation performed by pharmacy medication reconciliations deployment technician and/or nursing. Patients Allergies have been reviewed. Allergies Coded Allergies: paroxetine (Unverified Allergy, Unknown, 07/07/13) Uncoded Allergies: ANESTHETIC (Allergy, Unknown, 07/07/13) [id number] Hx Patient Social History Marrital Status: single Employed/Student: employed Drug of Choice: POT Smoking Status: Current Everyday Smoker 2nd Hand Smoke Exposure: Yes Recent Hopitalizations: No Alcohol Use?: No Substance type: Amphetamines, Methamphetamine, Opiates/Opioids Tobacco type used: Cigarettes Have you traveled recently?: No Immunizations Up To Date Tetanus Booster (TDap): Unknown Influenza Vaccine Up-to-Date: No; Not Current Past Medical History As indicated in problem list. Family Medical History Significant Family History: Heart Disease, Other Conditions/Hx Family History: Hypertension 19 FATHER 19 MOTHER Myocardial infarction Maternal Grandmother Maternal Grandfather Review of Systems ([facility]) Constitutional: see HPI; No chills Respiratory: see HPI; No cough; dyspnea on exertion, short of breath Cardiovascular: see HPI, chest pain, edema (Bilateral pitting edema of the shins.) Gastrointestinal: no symptoms reported; No abdominal pain, No constipation, No diarrhea, No nausea, No vomiting Genitourinary: see HPI, decreased output; No dysuria Musculoskeletal: no symptoms reported Skin: no symptoms reported, other (Bilateral swelling of both shins.) Psychiatric/Neurological: No Symptoms Reported Reviewed Test Results Reviewed Test Results Lab As indicated in lab results. Radiology EXAMINATION: Chest radiograph, portable AP view. DATE: 10/31/2021 8:33 PM INDICATION: 41-year-old female, chest pain. COMPARISON: October 30, 2021. FINDINGS: Heart size and mediastinal contours are unchanged. There is no identified pneumothorax. There is no large pleural effusion. There is no identified interval focal airspace consolidation. IMPRESSION: 1. No identified acute cardiopulmonary abnormality. Dictated by: Dictated on workstation # [id number] Dict: 10/31/212048 Trans: 10/31/212244 [facility] [id number] Interpreted by: ROBYN MCCULLOUGH MD Electronically signed by: ROBYN MCCULLOUGH MD 10/31/212244 Physical Exam-([facility]) Physical Exam Vital Signs VS - Last 72 Hours, by Label 10/31/21 11/01/21 11/01/21 11/01/21 20:09 00:23 01:06 01:06 Temp 36.7 36.8 Pulse 85 71 80 79 Resp 20 20 16 B/P (MAP) 107/86 (93) 140/104 129/99 (109) Pulse Ox 100 97 100 O2 Delivery Room Air Room Air Room Air 11/01/21 11/01/21 11/01/21 11/01/21 01:15 01:15 01:18 01:30 Temp 36.7 Pulse 76 85 74 Resp 14 12 B/P (MAP) 117/90 (99) 128/101 (110) Pulse Ox 100 99 100 97 O2 Delivery Room Air Room Air Room Air FiO2 21 11/01/21 11/01/21 11/01/21 11/01/21 01:45 01:45 02:00 03:00 Pulse 73 84 76 Resp 18 20 22 B/P (MAP) 98/72 (81) 121/98 (106) Pulse Ox 98 98 95 O2 Delivery Nasal Cannula Nasal Cannula Nasal Cannula Nasal Cannula O2 Flow Rate 2.00 2.00 2.00 2.00 11/01/21 11/01/21 11/01/21 11/01/21 03:45 04:00 07:23 08:00 Temp 36.7 36.0 Pulse 73 78 Resp 20 B/P (MAP) 137/108 (118) Pulse Ox 94 O2 Delivery Nasal Cannula Nasal Cannula O2 Flow Rate 2.00 2.00 11/01/21 11/01/21 11/01/21 8/30/22 08:00 09:00 09:21 10:00 Pulse 73 76 77 Resp 23 24 25 B/P (MAP) 139/108 (118) 140/112 (121) 123/96 (105) Pulse Ox 98 96 98 97 O2 Delivery Nasal Cannula Nasal Cannula Nasal Cannula Nasal Cannula O2 Flow Rate 2.00 2.00 2.00 2.00 11/01/21 11:00 Pulse 75 Resp 14 B/P (MAP) 126/92 (103) Pulse Ox 97 O2 Delivery Nasal Cannula O2 Flow Rate 2.00 Capillary Refill : Less Than 3 Seconds General Appearance: WD/WN, no apparent distress, obese Neck: normal inspection Respiratory: chest non-tender, crackles (Bilateral crackles in upper lobes bilaterally) Cardiovascular: regular rate, rhythm, no gallop, no JVD, no murmur Gastrointestinal: non tender, soft, no organomegaly Back: normal inspection Extremities: swelling (Swelling of shins bilaterally) Neurologic/Psychiatric: alert, normal mood/affect, oriented x 3 Skin: normal color, damp Short Stay Diagnosis Discharge Diagnosis-Short Stay Admission Diagnosis Chest pain and acute CHF exacerbation Final Discharge Diagnosis Chest pain (intermittent) and acute CHF exacerbation. Conclusion Plan See A/P Was the Problem List Reviewed?: Yes Clinical Quality Measures AMI/AHF: ASA po Prior to arrival: No DVT/VTE Risk/Contraindication: VTE Addressed: Yes VTE Present on Admission: No Assessment/Plan Assessment/Plan Admission Dx Chest Pain and acute CHF exacerbation Admission Status: Observation Assessment & Plan Acute CHF exacerbation - furosemide. Albuterol sulfate for respiratory symptoms. Entresto and metoprolol succinate prescribed DVT prophylaxis - enoxaparin Pain - acetominophen RADHA YORK Nov 01, 2021 12:14
== END 2021-11-01 12:09 | disposition home or self-care (01) ==
LOC: EDUNIT# 20:04 → ER 20:05 → CSD 20:06 → UNDOADMOB 11-01 00:32 → UNDODISOB 11-01 15:10 → CSD 11-01 16:13
PROVIDERS: ADMIT Family Medicine; ATTEND Family Medicine
DX: I50.23 Acute on chronic systolic (congestive) heart failure (principal); F17.210 Nicotine dependence, cigarettes, uncomplicated; Z79.899 Other long term (current) drug therapy; I08.1 Rheumatic disorders of both mitral and tricuspid valves
CPT/HCPCS: 71045; 80053 ×2; 80306; 81000; 83735; 83880; 84484; 85025 ×2; 85379; 85610; 85730; 87077; 87088; 87186; 93005; 93041; 93306; 96372; 96376; 99284; G0378; 36415